=== PATIENT | male | born 1970 | race Caucasian/White ===

== ENCOUNTER → 2016-08-23 | Outpatient (CLI) | payer BC ==
[~2016-08-23] VITALS: Ht 175.3 cm; Wt 127.6 kg
[~2016-08-23] MED LIST: AMLODIPINE BESY10 MG PO; CLONIDINE PO; HYDRALAZINE HC100 MG PO; HYDROCODONE-AP1 EA11 PO; HYDROCODONE-AP1 EAC6 PO; HYDROCODONE-APA1 TA1 PO; LISINOPRIL20 MG PO; LYRICA 75 MG CA75 MG PO; LYRICA100 MG PO; LYRICA150 MG PO; METFORMIN HCL500 MG PO; METHADONE HCL 110 M1 PO; METHADONE HCL5 MG PO; NORVASC5 MG PO; PERCOCET 5-3251 EACH PO; PERCOCET PO
--- NOTE | ~2016-08-23 | HPC ---
[facility] [place] [address] PAIN MANAGEMENT CONSULTATION Name: ROSI VALDES Room #: REG VICENTE Dailey#: [id number] Admission: 08/23/16 Attend Phys: Pio Johnson DO Discharge: Date of : 66 Report #: [id number] THIS REPORT FOR: //name// CC: Roxie Johnson HISTORY OF PRESENT ILLNESS: The patient is a very pleasant 45-year-old gentleman long known to the pain clinic for chronic left lower extremity neuropathic pain status post injury or trauma to the left foot. He also had lumbar decompressive laminectomy with ongoing radicular pain. He has been stable on methadone 5 mg t.i.d., hydrocodone 7.5/325 t.i.d. He takes Lyrica 75 mg b.i.d. Last urine drug screen 06/16/2015 was positive for prescribed medications. We did get a urine drug screen today, no aberrant behavior suggestive for drug diversion, simply complying with opiate consent to treat contract, is now a little greater than a year since last UDS. The patient returns to pain clinic today noting that while medications are providing sufficient analgesia to participate in activities of daily living, pain has been getting little bit worse, radiating down the left leg. Classic lumbar radicular symptoms. Similar to symptoms for which he had an epidural injection back in January 2016, prior injection in July 2015 as well. The patient notes pain is sharp and aching, rates it as 5 on a 0-10 visual analog scale, exacerbated with walking and standing. PHYSICAL EXAMINATION: GENERAL: Shows 45-year-old gentleman, moderately obese with a BMI of 41.5 kilograms per meter squared. VITAL SIGNS: Blood pressure is quite elevated today 171/112, pulse 89, respirations 16, oxygen saturation 96%. EXTREMITIES: Rises from chair using armrest. Modestly antalgic gait favoring the left leg. Positive straight leg raise on the left, slight decreased left-sided strength. We reviewed the fact that opiate medications are being used to provide analgesia adequate to support activities of daily living, not attempting to achieve a specific pain score on the 0-10 Visual Analog Scale. The current opiate medications are providing sufficient analgesia to allow the patient to participate in activities of daily living. The patient is not exhibiting any aberrant behavior suggestive of drug diversion. The patient is not having any adverse reactions to medications. The patient is not suffering from daytime somnolence or mental acuity changes. The patient is managing opiate-induced constipation with appropriate tpkb-fmd-mesmhrh agents and dietary considerations. The patient was counseled on concern for caution with operating a motor vehicle while using opiate medications. [address] [address] PAIN MANAGEMENT CONSULTATION Name: ROSI VALDES Room #: REG Caroline Dailey#: [id number] Admission: 08/23/16 Attend Phys: Pio Johnson DO Discharge: Date of : 66 Report #: [id number] A physical exam was performed and the patient's functional status was evaluated. All patients with back pain were advised against the bed rest greater than 4 days and were advised to return to normal activities. Pain score assessment was noted and the treatment plan was reviewed with the patient. All current medications, both prescribed and OTC were reviewed and reconciled on the electronic medical record. Tobacco screening was accomplished and smoking cessation was advised when indicated. BMI was noted and diet/exercise modification was recommended for all patients following outside normal parameters. I reviewed with the patient today their responsibilities to safeguard prescription medications, reviewed their responsibility to utilize medications only as prescribed by the physician. They are to seek and receive pain medications only from 1 physician group ( [facility]). They are to use 1 pharmacy and keep the clinic informed if they change pharmacies. Their responsibilities include making followup visits in a timely fashion and to avoid abrupt discontinuation of medication usage. Their responsibilities further include bringing their medications (bottles from the pharmacy with residual pills) to the visit for possible confirmation of pill counts and the patient understands it is their responsibility to submit to random drug screens to ensure both that the medications prescribed are present, and that no other controlled substances are present. All prescriptions provided today were generated electronically. DIAGNOSTIC STUDIES: Reviewed MRI of the lumbar spine from December 2014, has severe degenerative disk changes at L4-L5 and L5-S1 with marked disk space narrowing at these levels. There is a left paramedian disk bulge at L4-L5 causing a fairly severe stenosis of 0.5 cm. ASSESSMENT: Symptomatic lumbar radiculopathy status post decompressive laminectomy, left lower extremity chronic pain, neuropathic pain component requiring complex medication management. RECOMMENDATION: We will renew current scheduled II narcotics unchanged, methadone 5 mg t.i.d., hydrocodone 7.5/325 t.i.d. Continue Lyrica 75 mg b.i.d. We will seek authorization for lumbar epidural injection under fluoroscopy, left midline L4-L5 at next visit. <ELECTRONICALLY SIGNED> By: Pio Johnson DO 08/24/16 0925 [id number] [id number] Pio Johnson DO /nt
[2016-08-23 09:54] VITALS: BP 171/112
== END | disposition home or self-care (01) ==
LOC: PAIN 07:41
DX: M54.16 Radiculopathy, lumbar region (principal); M79.662 Pain in left lower leg; G89.29 Other chronic pain; F17.200 Nicotine dependence, unspecified, uncomplicated; Z98.890 Other specified postprocedural states

== ENCOUNTER → 2016-09-03 | Outpatient (CLI) | payer BC ==
[~2016-09-03] VITALS: Ht 175.3 cm; Wt 128.9 kg
--- NOTE | ~2016-09-03 | HPC ---
[facility] [place] [address] PAIN MANAGEMENT CONSULTATION Name: ROSI VALDES Room #: REG [facility] Asim#: [id number] Admission: 09/03/16 Attend Phys: Pio Johnson DO Discharge: Date of : 66 Report #: [id number] THIS REPORT FOR: //name// CC: Roxie Johnson The patient is a pleasant 45-year-old gentleman, he has been treated for quite some time for chronic pain syndrome in the left lower extremity, requiring complex medication management, neuropathic pain component, status post multiple surgeries ____. Last seen in the pain clinic 08/23/2016, we continued the patient on his baseline medication and got a urine drug screen at that time. The patient returns to pain clinic today, the urine drug screen is positive for hydrocodone and Lyrica, but negative for methadone. He tells me that he has been taking the methadone very intermittently, he states it makes him quite tired ____. He also is concerned that Lyrica may be causing him lower extremity edema. ____ ongoing pain today, he notes it is 5/10, primarily low back, left greater than right leg. Pain is exacerbated with walking, standing, and sitting. PHYSICAL EXAMINATION: Shows a 45-year-old gentleman, BMI is ____kg/m2, blood pressure is modestly elevated 149/71, pulse 77, and respirations 20. Rises from chair using armrest. Gait is tandem, though has positive straight leg raise on the left with positive ____ symptoms. ASSESSMENT: 1. Symptomatic lumbar radiculopathy. 2. Neuropathic pain requiring complex medication management, left lower extremity chronic pain syndrome. RECOMMENDATIONS: 1. Epidural injection under fluoroscopy today, 60 mg of triamcinolone given diabetes. 2. Discussed with the patient today about therapeutic options, he is basically self discontinuing the methadone, we will simply take that off of his medication list. We also talked about lower extremity edema, which he has about +1 today, I have given him samples of Lyrica 50 mg (currently he takes 75 mg once or twice a day). Told him to start taking simply Lyrica 50 mg at bedtime for 3 weeks and then discontinue altogether. We will see him back in 3 weeks for reevaluation, may simply continue p.r.n. hydrocodone at that point. PROCEDURE: Lumbar epidural injection under fluoroscopy. PROCEDURE NOTE: After both written and informed consent to include risk of spinal cord damage, increased pain, weakness and dural puncture, the patient was taken to the fluoroscopy suite, placed in the prone position. After sterile [address] [address] PAIN MANAGEMENT CONSULTATION Name: ROSI VALDES Room #: REG VICENTE Dailey#: [id number] Admission: 09/03/16 Attend Phys: Pio Johnson DO Discharge: Date of : 66 Report #: [id number] prep and drape, a skin wheal with lidocaine was raised. A 22-gauge epidural Tuohy needle was inserted in the midline at L4-L5 with good loss to resistance. Negative aspiration for cerebrospinal fluid or blood was noted. Then 1 mL of Omnipaque under biplanar fluoroscopy showed good spread within the epidural space. This was followed with 60 mg of triamcinolone plus 1 mL of 1.5% preservative-free Xylocaine, 0.5 mL Xylocaine was then injected to flush the needle; it was removed. The patient was monitored for an appropriate period of time and discharged in good and stable condition. By: [id number] Pio Johnson DO /nt
[2016-09-03 09:40] VITALS: BP 149/71
== END ==
LOC: PAIN 06:59
DX: M54.16 Radiculopathy, lumbar region (principal); G89.4 Chronic pain syndrome

== ENCOUNTER → 2016-10-01 | Outpatient (CLI) | payer BC ==
[~2016-10-01] VITALS: Ht 175.3 cm; Wt 128.4 kg
[~2016-10-01] MED LIST changes: +LYRICA 50 MG50 MG PO
--- NOTE | ~2016-10-01 | H ---
[facility] [place] [address] HISTORY AND PHYSICAL Name: ROSI VALDES Room #: REG VICENTE Dailey#: [id number] Admission: 10/01/16 Attend Phys: Pio Johnson DO Discharge: Date of : 66 Report #: [id number] THIS REPORT FOR: //name// CC: Roxie Johnson HISTORY OF PRESENT ILLNESS: The patient is a very pleasant 45-year-old gentleman, long treated for peripheral neuropathy and lumbar radiculopathy, requiring complex medication management. Last visit 09/03/2016. We had a long discussion about therapeutic options. He noted that methadone had made him quite drowsy. He was taking it basically only at night. Urine drug screen was negative for methadone on 08/23/2016. He actually brought his tablets in. He simply had not taken them for several days. Last visit, we elected to simply continue Lyrica on somewhat of a weaning dose due to concern for lower extremity edema. He was given epidural injection under fluoroscopy at the last visit as well. The patient returns to pain clinic today, notes the epidural injection afforded some 75% relief and it is still ongoing. Notes, however, the primarily bipedal neuropathy remains problematic. He notes he feels like his feet are bruised and uses hydrocodone 7.5/325 p.r.n. with dwindling efficacy. He really cannot use it during the day at work. PHYSICAL EXAMINATION: Unchanged. GENERAL: A pleasant 45-year-old gentleman. VITAL SIGNS: Elevated BMI of 41.8 kilograms per meter squared. Blood pressure is quite elevated today at 184/122, pulse is 81 and respirations are 16. NEUROLOGIC: Alert and oriented to person, place and time. Judged to be a reasonable historian. Rises from chair using the armrest, moderately antalgic gait. Subjective paresthesia in the feet. SKIN AND INTEGUMENT: Otherwise intact. ASSESSMENT: Neuropathic pain and lumbar radiculopathy, requiring complex medication management. RECOMMENDATIONS: Long discussion with the patient today about therapeutic options. He brought in methadone. He has 60 of the 5-mg tablets. I suggested he simply start by taking 10 mg at bedtime. We will continue hydrocodone 7.5/325 up to 3 a day for breakthrough pain. I have taken the liberty of writing for a 4-week release prescription for methadone 10 mg, dispensed 30 tablets, one at bedtime and a 4-week release of his hydrocodone 7.5/325 up to t.i.d. Hopefully, resuming methadone at night, the patient will be able to take a little bit less of the hydrocodone. I would like to see him back in 2 months for reevaluation, we will do a pill count for the hydrocodone at that time. He has weaned down from higher dose of Lyrica down to 75 mg and then ultimately [address] [address] HISTORY AND PHYSICAL Name: ROSI VALDES Room #: REG [facility] Asim#: [id number] Admission: 10/01/16 Attend Phys: Pio Johnson DO Discharge: Date of : 66 Report #: [id number] to 50 mg with samples I had given him. He has noted no change in his subjective pain and perhaps some improvement of his lower extremity edema. We have elected to simply discontinue Lyrica altogether. The patient was discharged in good and stable condition after approximately a 25-minute visit was spent counseling the patient, reviewing therapeutic options and making complex medication management decisions. Follow up in 2 months for reevaluation. By: 1200 [id number] Pio Johnson DO /nt
[2016-10-01 10:44] VITALS: BP 184/122
== END | disposition home or self-care (01) ==
LOC: PAIN 10:13
DX: M54.16 Radiculopathy, lumbar region (principal); G62.9 Polyneuropathy, unspecified; F17.210 Nicotine dependence, cigarettes, uncomplicated

== ENCOUNTER → 2016-11-22 | Outpatient (CLI) | payer BC ==
[~2016-11-22] VITALS: Ht 175.3 cm; Wt 124.8 kg
--- NOTE | ~2016-11-22 | HPC ---
[facility] [place] [address] PAIN MANAGEMENT CONSULTATION Name: ROSI VALDES Room #: REG Caroline Dailey#: [id number] Admission: 11/22/16 Attend Phys: Pio Johnson DO Discharge: Date of : 66 Report #: [id number] THIS REPORT FOR: //name// CC: Roxie Johnson The patient is a pleasant 45-year-old gentleman typically treated for peripheral neuropathy secondary to symptomatic lumbar radiculopathy. He requires high risk complex medication management. He was last seen in the pain clinic on 10/01/2016. The patient was continued on baseline medications at that time. His last urine drug screen on 08/23/2016 was positive for prescribed medications at that time. Today, he returns to the pain clinic. He rates his pain as 3-4 on a 0-10 visual analog scale, primarily low back, left greater than right leg. Quite hypertensive today, blood pressure is elevated at 185/118, pulse is 92. I did take the liberty of looking back on prior office visits, he has been mildly hypertensive in the the past. The patient does have a prescription for hydralazine and clonidine. I suggest the he follow up with the general manager physician regarding this. Further exam notes BMI is 40.6 kilograms per meter squared. Rises from chair using armrest. Modestly antalgic gait. Diffuse tenderness across the low back. Lower extremity strength in generally preserved. We discussed current therapeutic options including current medication including methadone 10 mg at bedtime and hydrocodone 7.5/325 three a day for breakthrough pain. We have elected to continue that medication unchanged, I have taken the liberty of writing for 3 months of this medication. ASSESSMENT: Symptomatic neuropathic pain affecting bilateral feet, lumbar radiculopathy by history, complex high risk medication management, stable on baseline medications. The patient has been complying with all opiate, consent to treat contract tenets. We reviewed the fact that opiate medications are being used to provide analgesia adequate to support activities of daily living, not attempting to achieve a specific pain score on the 0-10 Visual Analog Scale. The current opiate medications are providing sufficient analgesia to allow the patient to participate in activities of daily living. The patient is not exhibiting any aberrant behavior suggestive of drug diversion. The patient is not having any adverse reactions to medications. The patient is not suffering from daytime somnolence or mental acuity changes. The patient is managing opiate-induced constipation with appropriate ylvf-myb-ipvnzcw agents and dietary considerations. The patient was counseled on concern for caution with operating a motor vehicle while using opiate medications. A physical exam was performed and the patient's functional status was evaluated. [address] [address] PAIN MANAGEMENT CONSULTATION Name: ROSI VALDES Room #: REG Caroline Dailey#: [id number] Admission: 11/22/16 Attend Phys: Pio Johnson DO Discharge: Date of : 66 Report #: [id number] All patients with back pain were advised against the bed rest greater than 4 days and were advised to return to normal activities. Pain score assessment was noted and the treatment plan was reviewed with the patient. All current medications, both prescribed and OTC were reviewed and reconciled on the electronic medical record. Tobacco screening was accomplished and smoking cessation was advised when indicated. BMI was noted and diet/exercise modification was recommended for all patients following outside normal parameters. I reviewed with the patient today their responsibilities to safeguard prescription medications, reviewed their responsibility to utilize medications only as prescribed by the physician. They are to seek and receive pain medications only from 1 physician group ( [facility]). They are to use 1 pharmacy and keep the clinic informed if they change pharmacies. Their responsibilities include making followup visits in a timely fashion and to avoid abrupt discontinuation of medication usage. Their responsibilities further include bringing their medications (bottles from the pharmacy with residual pills) to the visit for possible confirmation of pill counts and the patient understands it is their responsibility to submit to random drug screens to ensure both that the medications prescribed are present, and that no other controlled substances are present. All prescriptions provided today were generated electronically. <ELECTRONICALLY SIGNED> By: Pio Johnson DO 11/26/16 1427 1622 1713 Pio Johnson DO /nt
[2016-11-22 08:22] VITALS: BP 185/118
== END | disposition home or self-care (01) ==
LOC: PAIN 07:42
DX: G62.9 Polyneuropathy, unspecified (principal); M79.672 Pain in left foot; M79.671 Pain in right foot; M54.16 Radiculopathy, lumbar region; F11.20 Opioid dependence, uncomplicated; F17.200 Nicotine dependence, unspecified, uncomplicated

== ENCOUNTER → 2017-02-21 | Outpatient (CLI) | payer BC ==
[~2017-02-21] VITALS: Ht 175.3 cm; Wt 119.4 kg
[~2017-02-21] MED LIST changes: +METHADONE HCL 110 MG PO; +NORCO 7.5-3251 EACH PO
--- NOTE | ~2017-02-21 | HPC ---
[facility] [address] [place] [address] PAIN MANAGEMENT CONSULTATION Name: ROSI VALDES Room #: REG [facility] [id number] Admission: 02/21/17 Attend Phys: Pio Johnson DO Discharge: Date of : 66 Report #: [id number] THIS REPORT FOR: //name// CC: Roxie Johnson DATE OF SERVICE: 02/21/2017 The patient is a pleasant 46-year-old gentleman, long treated for neuropathic pain, lumbar radiculopathy requiring high-risk complex medication management. Last seen in pain clinic 11/22/2016. Continued on methadone 10 mg at bedtime, hydrocodone 7.5/325 t.i.d. The patient returns to pain clinic today noting medications generally to provide sufficient analgesia, participate in activities of daily living, rates his pain as 5 on a VAS, left greater than right lower extremity neuropathic pain, tingling, aching sensation, exacerbated with walking and standing. The patient continues to smoke 1 pack of cigarettes a day and was counseled regarding same. PHYSICAL EXAMINATION: A 46-year-old gentleman, BMI is elevated at 38.9 kg/m2. Blood pressure is quite elevated today, 186/111, pulse of 82, respirations of 20. The patient does take hydralazine and clonidine for blood pressure. On reviewing his chart, it appears blood pressure has been consistently elevated for some time. We suggest he follow up with his primary treating physician, Dr. Roxie Santos for consideration for changes in his antihypertensives. Otherwise, the patient rises from chair using armrest, modest antalgic gait, again paresthesia and dysesthesia in the left lower extremity and foot. We reviewed the fact that opiate medications are being used to provide analgesia adequate to support activities of daily living, not attempting to achieve a specific pain score on the 0-10 Visual Analog Scale. The current opiate medications are providing sufficient analgesia to allow the patient to participate in activities of daily living. The patient is not exhibiting any aberrant behavior suggestive of drug diversion. The patient is not having any adverse reactions to medications. The patient is not suffering from daytime somnolence or mental acuity changes. The patient is managing opiate-induced constipation with appropriate jfnm-bpv-pcmrgth agents and dietary considerations. The patient was counseled on concern for caution with operating a motor vehicle while using opiate medications. A physical exam was performed and the patient's functional status was evaluated. All patients with back pain were advised against the bed rest greater than 4 days and were advised to return to normal activities. Pain score assessment was noted and the treatment plan was reviewed with the patient. All current medications, both prescribed and OTC were [place] [address] PAIN MANAGEMENT CONSULTATION Name: ROSI VALDES Room #: REG VICENTE Dailey#: [id number] Admission: 02/21/17 Attend Phys: Pio Johnson DO Discharge: Date of : 66 Report #: [id number] electronic medical record. Tobacco screening was accomplished and smoking cessation was advised when indicated. BMI was noted and diet/exercise modification was recommended for all patients following outside normal parameters. I reviewed with the patient today their responsibilities to safeguard prescription medications, reviewed their responsibility to utilize medications only as prescribed by the physician. They are to seek and receive pain medications only from 1 physician group ([facility]). They are to use 1 pharmacy and keep the clinic informed if they change pharmacies. Their responsibilities include making followup visits in a timely fashion and to avoid abrupt discontinuation of medication usage. Their responsibilities further include bringing their medications (bottles from the pharmacy with residual pills) to the visit for possible confirmation of pill counts and the patient understands it is their responsibility to submit to random drug screens to ensure both that the medications prescribed are present, and that no other controlled substances are present. All prescriptions provided today were generated electronically. ASSESSMENT: Lumbar radiculopathy; neuropathic pain, bilateral left greater than right lower extremities requiring high-risk complex medication management. Nicotine habituation, counseled regarding same. Hypertension, poor control. RECOMMENDATIONS: 1. Follow up with Dr. Santos regarding hypertension. 2. Smoking cessation, counseled. 3. Continue methadone 10 mg at bedtime and hydrocodone 7.5/325 up to t.i.d. for breakthrough pain, taken the liberty of writing for 3 months of current medication. 4. Last urine drug screen on 08/23/2016 was positive for prescribed medication. We did review patient's opiate consent to treat contract, risks versus responsibilities today. <ELECTRONICALLY SIGNED> By: Pio Johnson DO 02/22/17 0654 1234 0229 Pio Johnson DO /nt
[2017-02-21 09:50] VITALS: BP 188/111
== END ==
LOC: PAIN 07:43
DX: M54.16 Radiculopathy, lumbar region (principal); I10 Essential (primary) hypertension

== ENCOUNTER 2017-04-05 09:11 | Inpatient (IN) | payer BC ==
[~2017-04-05] VITALS: Ht 175.3 cm; Wt 117.0 kg
[2017-04-05] VITALS (7 sets, daily range): BP systolic 161–222; BP diastolic 93–153
--- NOTE | ~2017-04-05 | 2DMMODE ---
[facility] [address] [place] [address] 2 D/M-MODE ECHOCARDIOGRAM Name: ROSI VALDES Room #: 356-P [facility] IN [facility]#: [id number] Admission: 04/05/17 Attend Phys: Nick Fishman MD Discharge: Date of : 66 Date of Service: 04/06/17 1458 Report #: [id number] THIS REPORT FOR: //name// ADDENDUM APPROVED REPORT Study performed: 04/05/2017 15:29:20 EXAM: Comprehensive 2D, Doppler, and color-flow Echocardiogram Patient Location: Bedside Room #: 356 Status: routine BSA: 2.32 HR: 84 bpm BP: 178/129 mmHg Other Information Study Quality: Adequate Indications Congestive Heart Failure Dyspnea Hypertension/HDD 2D Dimensions RVDd: 30.95 mm LVEF(%): 39.96 (>50%) IVSd: 18.29 (7-11mm) LVOT Diam: 21.51 (18-24mm) LVDd: 55.85 mm PWd: 17.80 (7-11mm) Ascending Ao: 32.31 (22-36mm) LVDs: 44.84 (25-40mm) Aortic Root: 33.39 mm Dorman's LVEF: 39.96 % Volumes Left Atrial Volume (Systole) Single Plane 4CH: 42.27 mL Single Plane 2CH: 122.36 mL LA ESV Index: 35.00 mL/m2 Aortic Valve AoV Peak Marcus.: 1.69 m/s AO Peak Gr.: 11.48 mmHg LVOT Max P.09 mmHg LVOT Max V: 1.13 m/s ROSALINDA Vmax: 2.42 cm2 Mitral Valve E/A Ratio: 2.8 [facility] [place] [address] [place] [address] 2 D/M-MODE ECHOCARDIOGRAM Name: ROSI VALDES Room #: 356-P [facility] IN [facility].#: [id number] Admission: 04/05/17 Attend Phys: Nick Fishman MD Discharge: Date of : 66 Date of Service: 04/06/17 1458 Report #: [id number] MV Decel. Time: 174.46 ms MV E Max Marcus.: 1.17 m/s MV A Marcus.: 0.42 m/s MV PHT: 50.59 ms IVRT: 131.49 ms Pulmonary Valve PV Peak Marcus.: 0.84 m/s PV Peak Gr.: 2.84 mmHg Pulmonary Vein P Vein S: 0.42 m/s P Vein A: 0.23 m/s P Vein D: 0.79 m/s P Vein A Dur.: 115.3 msec P Vein S/D Ratio: 0.53 Left Ventricle The left ventricle is normal size. Moderate concentric left ventricular hypertrophy. Left ventricular ejection fraction is mild to moderately decreased. LVEF is 35-40%. The diastolic function is abnormal. Right Ventricle The right ventricle is normal size. The right ventricular systolic function is normal. Atria Left atrium is dilated. The right atrium size is normal. Aortic Valve The aortic valve is normal in structure. Aortic valve is calcified. Trace to mild aortic regurgitation. There is no aortic valvular stenosis. Mitral Valve The mitral valve is normal in structure. Trace mitral regurgitation. No evidence of mitral valve stenosis. Tricuspid Valve The tricuspid valve is normal in structure. There is no tricuspid valve regurgitation noted. Pulmonic Valve The pulmonary valve is normal in structure. There is no pulmonic valvular regurgitation. Great Vessels The aortic root is normal in size. IVC is not well [address] [address] 2 D/M-MODE ECHOCARDIOGRAM Name: ROSI VALDES Room #: 356-P [facility] IN ..#: [id number] Admission: 04/05/17 Attend Phys: Nick Fishman MD Discharge: Date of : 66 Date of Service: 04/06/17 1458 Report #: [id number] visualized. Pericardium There is no pericardial effusion. <Conclusion> The left ventricle is normal size. Left ventricular ejection fraction is mild to moderately decreased. Moderate concentric left ventricular hypertrophy. LVEF is 35-40%. Left atrium is dilated. The aortic valve is normal in structure. Aortic valve is calcified. Trace to mild aortic regurgitation. There is no aortic valvular stenosis. The mitral valve is normal in structure. Trace mitral regurgitation. The tricuspid valve is normal in structure. The pulmonary valve is normal in structure. There is no pericardial effusion. <ELECTRONICALLY SIGNED> By: Soham Burch MD 04/06/17 1458 1458 1458 Soham Burch MD /INF
--- NOTE | ~2017-04-05 | HC ---
[facility] [place] [address] [address] CONSULTATION Name: ROSI VALDES Room #: 356-P [facility] IN ..#: [id number] Admission: 04/05/17 Attend Phys: Nick Fishman MD Discharge: Date of : 66 Report #: [id number] THIS REPORT FOR: //name// CC: Nick Santos REASON FOR PRESENTATION: Shortness of breath. REASON FOR CONSULTATION: Elevated kidney numbers. HISTORY OF PRESENT ILLNESS: This is a 46-year-old with long-standing diabetes mellitus and hypertension. He started to have some shortness of breath a couple of days ago and reported to his primary care physician where they did some laboratory values on the patient and those showed very significant worsening of his kidney function. He was told by his primary care physician to visit with the Emergency Room where he was found to have an acute kidney injury with significantly elevated renal dysfunction. The patient had been seeing another primary care physician and he recently switched to his primary care physician here in town, Dr. Santos. He is not aware of any previous cardiac problems. He told me that he had long-standing diabetes mellitus and hypertension. He also mentioned for me that a few years ago he had an adrenal tumor and this was resected. He relates that to low potassium. He denies nonsteroidal anti-inflammatory medications. Medications on presentation included clonidine, hydralazine, methadone. He had been followed by pain clinic for back and lower extremities issues and was prescribed methadone accordingly. The patient is not really aware of any previous renal issues as he stated. He told me that he does not have any diabetic related or blood pressure related issues. On presentation, as I have stated, he was found to have a significantly elevated creatinine with a significantly elevated blood pressure and I was asked to manage accordingly. He is not aware of any previous personal or family history of connective tissue disease, glomerulonephritis, family history of end-stage renal disease or renal transplant patients. PAST MEDICAL HISTORY: 1. Hypertension. 2. Remote history of angiomyolipoma. 3. Chronic pain issues. 4. Erectile dysfunction. 5. Hyperlipidemia. 6. Sleep apnea, utilizing CPAP. PAST SURGICAL HISTORY: 1. Back surgery. 2. Adrenal gland resection. ALLERGIES: None. [facility] [address] [place] [address] CONSULTATION Name: ROSI VALDES Room #: 356-P [facility] IN [facility]#: [id number] Admission: 04/05/17 Attend Phys: Nick Fishman MD Discharge: Date of : 66 Report #: [id number] MEDICATIONS: 1. Amlodipine. 2. Clonidine. 3. Hydrocodone. 4. Methadone. 5. Viagra. FAMILY HISTORY: Parents have hypertension. SOCIAL HISTORY: Heavy smoker. Occasional drinker. REVIEW OF SYSTEMS: GENERAL: No fever or chills. CARDIOVASCULAR: Significant for shortness of breath, but no chest pain. PULMONARY: Significant for shortness of breath. GASTROINTESTINAL: No nausea or vomiting. GENITOURINARY: No frequency, no urgency. PHYSICAL EXAMINATION: GENERAL: He is alert, oriented, in no apparent distress. VITAL SIGNS: Blood pressure on presentation was elevated at 200/100 and it is down to 160/70. HEAD AND NECK: No jugular venous distention, no bruit, no thyromegaly. CHEST: Clear to auscultation bilaterally with decreased air entry. CARDIOVASCULAR: Regular, with no rub detected. ABDOMEN: Soft, nontender. LOWER EXTREMITIES: +3 edema. LABORATORY DATA: Reviewed. White blood cell count is elevated at 15.0. No eosinophilia. Creatinine from today 7.2. He is anemic with a hemoglobin of 8.7. UA is not done yet. Imaging including his ultrasound reviewed. Lung scan negative. ASSESSMENT, IMPRESSION AND PLAN: 1. Chronic kidney disease. 2. Hypertension. 3. Diabetes mellitus. 4. Remote history of adrenalectomy. 5. Cardiomyopathy, probably related to hypertension with an ejection fraction of 40%. This seems to be due to uncontrolled hypertension. I will initiate the appropriate workup, please review my lab orders. 6. Ultrasound of the kidneys. 7. Anemia workup. 8. Control blood pressure. [address] [address] CONSULTATION Name: ROSI VALDES Diana Room #: 356-P [facility] IN ..#: [id number] Admission: 04/05/17 Attend Phys: Nick Fishman MD Discharge: Date of : 66 Report #: [id number] 9. Diuresis. 10. Would like to obtain his [facility] records regarding his adrenalectomy. 11. Low salt diet. 12. Fluid restrictions. 13. Check hemoglobin A1c. 14. Significant hypoalbuminemia and we will have to evaluate urine protein to creatinine ratio. 15. Need further optimization of his cardiac conditions. <ELECTRONICALLY SIGNED> By: Mak Snow MD 04/08/17 0632 0842 1813 Mak Snow MD /nt
--- NOTE | ~2017-04-05 | EKG ---
[place] [address] [place] [address] ELECTROCARDIOGRAM REPORT Name: ROSI VALDES [id number] Admission: 04/05/17 Attend Phys: Discharge: Date of : 66 Report #: [id number] THIS REPORT FOR: //name// [facility] ED Test Date: 2017-04-05 Test Time: 09:33:01 Pat Name: ROSI LUCIO Department: Room: Gender: Sterile Proc Tech: ANTONINA : 1970 Requested By: Yulisa Kong Order Number: [id number] MD: Eben Cooley Measurements Intervals [place] Rate: 92 P: 64 MN: 149 QRS: 9 QRSD: 106 T: 127 QT: 363 QTc: 450 Interpretive Statements Sinus rhythm Probable left atrial enlargement RSR' in V1 or V2, probably normal variant Abnormal T, consider ischemia, lateral leads Baseline wander in lead(s) V4 No previous ECG available for comparison Electronically Signed On 04-05-2017 11:20:00 AUTOMATIC PROFILE SHAPER OPERATOR by Eben Cooley [email or web address] <ELECTRONICALLY SIGNED> By: Eben Cooley MD 04/05/17 1120 2 2 Eben Cooley MD /EUNICE
--- NOTE | ~2017-04-05 | HC ---
[facility] [place] [address] CONSULTATION Name: ROSI VALDES Room #: 356-P [facility] IN ..#: [id number] Admission: 04/05/17 Attend Phys: Nick iFshman MD Discharge: Date of : 66 Report #: [id number] THIS REPORT FOR: //name// CC: Nick Santos MD PRIMARY CARE PHYSICIAN: Roxie Santos MD REFERRAL PHYSICIAN: Nick Fishman MD REASON FOR REFERRAL: Dyspnea. HISTORY OF PRESENT ILLNESS: The patient is a 46-year-old male, who was admitted with increasing dyspnea along with hypertensive urgency. The patient has a history of hypertension, chronic kidney disease along with diabetes. He was also diagnosed with sleep apnea, on CPAP. The patient notes that his blood pressure has been elevated recently. Today, when he was seen by Dr. Santos, his blood pressure measured 212/146 mmHg. He had complained of dyspnea. He was referred to the emergency room where he was subsequently admitted. The patient states that he was in his usual state of health until about 3 days ago when he started to develop dyspnea. Otherwise, denies any recent chest pain, febrile illness, productive cough, nausea, vomiting, or diarrhea. He still smokes about a pack a day. He states that he is compliant with the use of CPAP. 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 PAST SURGICAL HISTORY: Include prior back surgery, status post tumor resection. ALLERGIES: None to medications. HOME MEDICATIONS: Include amlodipine, clonidine 0.3 mg tablet twice a day, hydralazine 100 mg p.o. twice a day, hydrocodone 7.5 mg t.i.d., methadone 10 mg once a day, Viagra 100 mg p.o. p.r.n., and Ambien 5 mg once a day. FAMILY HISTORY: Noncontributory. Both parents are alive. SOCIAL HISTORY: As mentioned above. He smokes about a pack a day. Alcohol, he [facility] [address] [place] [address] CONSULTATION Name: ROSI VALDES Room #: 356-P [facility] IN [facility].#: [id number] Admission: 04/05/17 Attend Phys: Nick Fishman MD Discharge: Date of : 66 Report #: [id number] drinks socially. REVIEW OF SYSTEMS: As mentioned above, otherwise 10-point system review negative. PHYSICAL EXAMINATION: GENERAL: He is awake, alert, appears mildly distressed. VITAL SIGNS: Temperature is 97 degrees Fahrenheit, pulse is 82, respiratory rate is 20, blood pressure is 179/112 mmHg, and saturation 98%. HEENT: Normocephalic, atraumatic. NECK: Supple without any lymphadenopathy or thyromegaly. CHEST: Breath sounds are clear without any rales or wheezes. CARDIOVASCULAR: PMI is nondisplaced. Normal S1, S2. There is no murmur or gallop. There is no JVD. There is no carotid bruit. Pulses are 2+/4+ bilaterally. ABDOMEN: Soft, nontender. No organomegaly or masses felt. GENITOURINARY: Deferred. RECTAL: Deferred. EXTREMITIES: There is no cyanosis or clubbing. Trace bilateral lower extremity edema is noted. LABORATORY DATA: Portable chest x-ray revealed borderline cardiomegaly, increased pulmonary vascular markings, subtle suggestion of Cristal B lines are noted in both peripheral lung bedoya area. Sodium 135, potassium 3.8, chloride 104, CO2 is 24, BUN is 68, and creatinine 6.7. WBC 13,200; hemoglobin is 9.8, and platelets are normal. Troponin 0.06. Arterial blood gas revealed pH 7.39, pCO2 of 33, and pO2 of 61 on room air. IMPRESSION: 1. Dyspnea in this 46-year-old male with hypertensive urgency. The patient smokes. He has a history of sleep apnea. He is moderately obese. Dyspnea is likely related to hypertensive urgency. There is suggestion of possible acute systolic heart failure. Pulmonary embolus is felt to be less likely given a low probability V/Q scan. With his history of tobacco use, cannot rule out chronic obstructive pulmonary disease, though he does not appear to have chronic obstructive pulmonary disease exacerbation. 2. Obstructive sleep apnea, on home CPAP. 3. Tobacco abuse. 4. Hypertensive urgency. The patient was felt to have renal vascular disease. We would recommend renal consult. 5. Chronic kidney disease. Creatinine today is 6.7. 6. Mildly elevated troponin, probably related to myocardial stress demand. 7. Hypertension. 8. Diabetes mellitus type 2. 9. Chronic pain, on chronic narcotics. [facility] [address] [place] [address] CONSULTATION Name: ROSI VALDES Room #: 356-P [facility] M.R.#: [id number] Admission: 04/05/17 Attend Phys: Nick Fishman MD Discharge: Date of : 66 Report #: [id number] RECOMMENDATION: Agree with current plans with blood pressure control. We would recommend echocardiogram. Consider gentle diuresis. We will try to keep blood pressure around 130/80 if possible. We would recommend a renal consultation if not already. In terms of the patient's dyspnea, this should improve once his hypertension is better controlled. Once stable as an outpatient, we would recommend a baseline pulmonary function test. Strongly recommended smoke cessation. He should continue using CPAP for his sleep apnea. This will help with blood pressure control. Thank you for this consultation. <ELECTRONICALLY SIGNED> By: Harrison Fleming MD 04/07/17 1155 1601 26 Harrison Fleming MD /nt
[2017-04-05] MEDS ORDERED: HYDROCODONE-ACE15 ML PO (09:27)
[2017-04-05 09:47] LABS: ABSOLUTE NEUTROPHILS 9.8 thou/uL (1.4-8.2); BASOPHILS 0.5 % (0.0-2.0); EOSINOPHILS 1.7 % (0.0-3.0); HEMATOCRIT 29.4 % (42.0-52.0); HEMOGLOBIN 9.8 gm/dL (14.0-18.0); LYMPHOCYTES 17.3 % (24.0-44.0); MCH 28.8 pg (26.0-34.0); MCHC 33.4 g/dL (28.0-37.0); MCV 86.4 fL (80.0-100.0); PLATELET COUNT 216 thou/uL (150-400); POLYS 74.5 % (36.0-66.0); RDW 14.9 % (10.5-14.5); WBC 13.2 thou/uL (4.0-11.0)
[2017-04-05 09:53] LABS: ABG SAMPLE TYPE ARTERIAL; BE(vivo) -4.2 mmol/L (-2 to +3); LACTATE 0.92 mmol/L (0.5-2.0); O2(CT) 13.5 mL/dL (15.0-23.0); O2Hb 91.8 % (92.0-98.0); PCO2 33.4 mmHg (35.0-45.0); PO2 61.9 mmHg (80.0-100.0); pH 7.395 (7.360-7.450); sO2 91.9 % (92.0-98.0)
[2017-04-05 09:54] LABS: FIO2 21 %; STICK SITE R.BRACHIAL
[2017-04-05 09:57] LABS: CALCIUM 8.7 mg/dL (8.5-10.1); CREATININE 6.7 mg/dL (0.7-1.3); POTASSIUM 3.8 mmol/L (3.5-5.1)
[2017-04-05 09:58] LABS: MANUAL DIFF NO
[2017-04-05 10:06] LABS: TROPONIN-I 0.06 ng/mL (<0.06)
[2017-04-06] VITALS (8 sets, daily range): BP systolic 104–175; BP diastolic 57–116
[2017-04-06 05:58] LABS: HEMATOCRIT 26.6 % (42.0-52.0); HEMOGLOBIN 8.7 gm/dL (14.0-18.0); MCH 28.6 pg (26.0-34.0); MCHC 32.7 g/dL (28.0-37.0); MCV 87.6 fL (80.0-100.0); RBC 3.04 mil/uL (4.50-6.00); RDW 15.1 % (10.5-14.5)
[2017-04-06 06:12] LABS: ALBUMIN 2.9 g/dL (3.4-5.0); CALCIUM 8.3 mg/dL (8.5-10.1); CREATININE 7.2 mg/dL (0.7-1.3); PHOSPHORUS 5.5 mg/dL (2.5-4.9); POTASSIUM 4.1 mmol/L (3.5-5.1)
[2017-04-06 11:44] LABS: URINE BILIRUBIN NEGATIVE (Negative); URINE BLOOD TRACE (Negative); URINE COLOR YELLOW; URINE GLUCOSE-RANDOM* NEGATIVE (Negative); URINE KETONES NEGATIVE (Negative); URINE NITRITE NEGATIVE (Negative); URINE PROTEIN (DIPSTICK) 2+ (Negative); URINE UROBILINOGEN 0.2 E.U./dl (0.2-1.0)
[2017-04-06 11:54] LABS: AMP/METHAMP Negative (Negative); BARBITURATES Negative (Negative); BENZODIAZEPINES Negative (Negative); COCAINE Negative (Negative); METHADONE POSITIVE (Negative); OPIATES POSITIVE (Negative); PCP Negative (Negative); URINE CREATININE-RANDOM* 83.5 mg/dL; URINE PROTEIN-RANDOM* 252.8 mg/dL (<11.9)
[2017-04-06 12:01] LABS: FINE GRANULAR CASTS 4-10 Moderate /LPF (None Seen); SQUAMOUS 0-3 Few /LPF (0-3)
[2017-04-06 12:03] LABS: AMORPHOUS URATES Few /LPF (None Seen); BACTERIA 1-9 Few /HPF (None Seen); URINE RBC 0-2 Rare /HPF (0-2); URINE WBC 0-5 Rare /HPF (0-5)
[2017-04-07 03:40] VITALS: BP 154/104
[2017-04-07 03:52] LABS: HEMATOCRIT 24.3 % (42.0-52.0); HEMOGLOBIN 8.1 gm/dL (14.0-18.0); MCH 29.3 pg (26.0-34.0); MCHC 33.5 g/dL (28.0-37.0); MCV 87.4 fL (80.0-100.0); RBC 2.78 mil/uL (4.50-6.00); RDW 15.2 % (10.5-14.5); WBC 10.7 thou/uL (4.0-11.0)
[2017-04-07 04:03] LABS: ALBUMIN 2.8 g/dL (3.4-5.0); CREATININE 7.8 mg/dL (0.7-1.3); PHOSPHORUS 7.4 mg/dL (2.5-4.9); POTASSIUM 4.1 mmol/L (3.5-5.1)
[2017-04-07 07:42] VITALS: BP 136/97
[2017-04-07 11:16] VITALS: BP 126/91
[2017-04-07 16:40] VITALS: BP 119/88
[2017-04-07 18:59] VITALS: BP 121/85
[2017-04-07 23:32] VITALS: BP 133/95
[2017-04-08 05:04] VITALS: BP 135/97
[2017-04-08 05:37] LABS: CALCIUM 8.1 mg/dL (8.5-10.1); CREATININE 8.1 mg/dL (0.7-1.3); PHOSPHORUS 7.2 mg/dL (2.5-4.9)
[2017-04-08 05:42] LABS: % SATURATION 19 % (20-39); IRON 48 ug/dL (65-175); TIBC 247 ug/dL (250-450); UIBC 199 ug/dL
[2017-04-08 07:12] VITALS: BP 149/103
[2017-04-08 11:59] VITALS: BP 122/87
[2017-04-08 13:11] LABS: IgG 776 mg/dL (700-1600); IgM 106 mg/dL (20-172)
[2017-04-08 15:35] VITALS: BP 119/84
[2017-04-08 16:09] LABS: KAPPA FREE LIGHT CHAINS 111.8 mg/L (3.3-19.4); KAPPA/LAMBDA RATIO 1.98 (0.26-1.65); LAMBDA FREE LIGHT CHAINS 56.5 mg/L (5.7-26.3)
[2017-04-08 19:50] VITALS: BP 119/81
[2017-04-08 20:08] LABS: IgA 78 mg/dL (90-386)
[2017-04-09 04:45] VITALS: BP 144/92
[2017-04-09 06:58] LABS: ALBUMIN 3.1 g/dL (3.4-5.0); CALCIUM 8.1 mg/dL (8.5-10.1); CREATININE 8.3 mg/dL (0.7-1.3); POTASSIUM 3.7 mmol/L (3.5-5.1)
[2017-04-09 07:30] VITALS: BP 140/93
[2017-04-09 11:07] VITALS: BP 140/93
[2017-04-09 11:17] VITALS: BP 117/83
[2017-04-09 21:22] VITALS: BP 121/75
[2017-04-10 03:28] LABS: ALBUMIN 2.9 g/dL (3.4-5.0); CALCIUM 8.1 mg/dL (8.5-10.1); PHOSPHORUS 6.3 mg/dL (2.5-4.9)
[2017-04-10 03:30] VITALS: BP 142/83
[2017-04-10 03:31] LABS: CREATININE 6.7 mg/dL (0.7-1.3)
[2017-04-10 07:24] VITALS: BP 137/89
[2017-04-10 12:08] LABS: A/G RATIO 1.3 (0.7-1.7); ALBUMIN 3.2 g/dL (2.9-4.4); ALPHA 1 0.2 g/dL (0.0-0.4); ALPHA 2 0.6 g/dL (0.4-1.0); BETA 0.8 g/dL (0.7-1.3); GAMMA 0.8 g/dL (0.4-1.8); M-SPIKE Not Observed g/dL (Not Observed)
[2017-04-10 16:01] VITALS: BP 128/84
[2017-04-10 16:08] LABS: c-ANCA <1:20 titer (Neg:<1:20); p-ANCA <1:20 titer (Neg:<1:20)
[2017-04-10 20:00] VITALS: BP 116/78
[2017-04-10 23:32] VITALS: BP 131/87
[2017-04-11 04:00] VITALS: BP 140/89
[2017-04-11 05:29] LABS: CALCIUM 8.6 mg/dL (8.5-10.1); CREATININE 5.8 mg/dL (0.7-1.3); PHOSPHORUS 5.3 mg/dL (2.5-4.9)
[2017-04-11 09:08] VITALS: BP 131/94
[2017-04-11 10:04] VITALS: BP 131/94
[2017-04-11] MEDS ORDERED: CALCIUM ACETAT667 MG PO (11:53)
[2017-04-11] MEDS ORDERED: LASIX 40 MG TAB40 M1 PO (11:53)
[2017-04-11] MEDS ORDERED: NEPHROCAPS SOFT1 CAP PO (11:55)
[2017-04-11] MEDS ORDERED: ACCUNEB SO1.25 MG/1 INH (12:01)
[2017-04-11] MEDS ORDERED: SPIRIVA INH (12:01)
[2017-04-11 12:25] VITALS: BP 152/95
[2017-04-11] MEDS ORDERED: VENTOLIN HFA 1818 GM INH (13:02)
== END 2017-04-11 15:06 | disposition home or self-care (01) | DRG 871 ==
LOC: ER 09:11 → 3W 11:36 → EROBS 11:36 → 3W 13:00 → ENTRNSPT 04-11 14:55 → EDTRNSPTSTS 04-11 14:56 → 3W 04-11 15:06
PROVIDERS: Emergency Medicine; Hospitalist; Internal Medicine Nephrology
DX: A41.9 Sepsis, unspecified organism (principal); J96.01 Acute respiratory failure with hypoxia; I50.21 Acute systolic (congestive) heart failure; N18.6 End stage renal disease; N17.9 Acute kidney failure, unspecified; J44.1 Chronic obstructive pulmonary disease with (acute) exacerbation; F11.20 Opioid dependence, uncomplicated; I42.9 Cardiomyopathy, unspecified; I13.2 Hypertensive heart and chronic kidney disease with heart failure and with stage 5 chronic kidney disease, or end stage renal disease; F17.210 Nicotine dependence, cigarettes, uncomplicated; I16.0 Hypertensive urgency; E87.70 Fluid overload, unspecified; G89.29 Other chronic pain; E78.5 Hyperlipidemia, unspecified; E11.40 Type 2 diabetes mellitus with diabetic neuropathy, unspecified; G47.00 Insomnia, unspecified; G47.33 Obstructive sleep apnea (adult) (pediatric); E83.39 Other disorders of phosphorus metabolism; E11.22 Type 2 diabetes mellitus with diabetic chronic kidney disease; D64.9 Anemia, unspecified; I99.8 Other disorder of circulatory system; Z84.1 Family history of disorders of kidney and ureter; Z82.49 Family history of ischemic heart disease and other diseases of the circulatory system; Z79.899 Other long term (current) drug therapy; Z99.81 Dependence on supplemental oxygen; Z99.2 Dependence on renal dialysis
CPT/HCPCS: 10080; 32100

== ENCOUNTER → 2017-05-02 | Outpatient (CLI) | payer BC ==
[~2017-05-02] VITALS: Ht 175.3 cm; Wt 111.9 kg
[~2017-05-02] MED LIST changes: +ACCUNEB SO1.25 MG/1 INH; +AUGMENTIN 875-1 EACH PO; +CALCIUM ACETAT667 M2 PO; +CALCIUM ACETAT667 MG PO; +HYDROCODON-ACE1 EAC8 PO; +HYDROCODONE-ACE15 ML PO; +LASIX 40 MG TAB40 M1 PO; +LASIX 40 MG TAB40 M2 PO; +MOMETASONE FURO30 ML OTIC; +NEPHROCAPS SOFT1 CAP PO; +NORCO 10-325 T1 EAC1 PO; +SPIRIVA INH; +VENTOLIN HFA 1818 GM INH
--- NOTE | ~2017-05-02 | HPC ---
[facility] [place] [address] PAIN MANAGEMENT CONSULTATION Name: ROSI VALDES Room #: [facility]#: [id number] Admission: 05/02/17 Attend Phys: Pio Johnson DO Discharge: Date of : 66 Report #: [id number] THIS REPORT FOR: //name// CC: Roxie Johnson DATE OF SERVICE: 05/02/2017 The patient is a 46-year-old gentleman being treated for lumbar radiculopathy and neuropathic pain, requiring high-risk complex medication management. Last seen in Pain Clinic on 02/21/2017, continued on baseline medication including methadone 10 mg at bedtime, hydrocodone 7.5/325 three times a day. Counseled regarding smoking cessation. Last random drug screen 08/23/2016 was positive for prescribed medications. The patient presents to Pain Clinic today. We had a prolonged visit from 8582-6611. Greater than 50% of this 25-minute visit was spent counseling the patient. He has had significant interval health changes when I saw him last. He is admitted to the hospital 04/05/2017 through 04/11/2017, ostensibly with congestive failure and COPD and has found to have acute renal failure and currently is getting dialyzed (hemodialysis) 3 days a week. Was told that as his renal function was an acute issue, they are hopeful that with time his kidneys function will gradually return to normal. I reviewed the patient's current medication. Again, methadone and hydrocodone should not have any significant renal toxicity and should not be impacted by renal function. The patient fortunately has quit smoking. He notes his pain is a 5 on a VAS. Pain primarily low back, left leg and foot. Rates it a 5 on a VAS, chronic tingling sensation, exacerbated with walking and standing. PHYSICAL EXAMINATION: Shows a 46-year-old gentleman. He has lost a little weight. BMI is down to 36.4 kg/m2 (prior he had run around 40 kg/m2). Blood pressure is 143/96, pulse 63, respirations 18. He had been "hit or a miss" on his blood pressure medicine prior, which may have been a culprit in the acute renal insufficiency, he is now much more adamant about taking his Lasix, hydralazine and clonidine on a daily basis. He is alert and oriented to person, place and time, judged to be a reasonable historian. Rises from chair using armrest, modestly antalgic gait favoring the left leg, some hyperpathia and allodynia around the left lower extremity. We reviewed the fact that opiate medications are being used to provide analgesia [address] [address] PAIN MANAGEMENT CONSULTATION Name: ROSI VALDES Room #: [facility] Asim#: [id number] Admission: 05/02/17 Attend Phys: Pio Johnson DO Discharge: Date of : 66 Report #: [id number] adequate to support activities of daily living, not attempting to achieve a specific pain score on the 0-10 Visual Analog Scale. The current opiate medications are providing sufficient analgesia to allow the patient to participate in activities of daily living. The patient is not exhibiting any aberrant behavior suggestive of drug diversion. The patient is not having any adverse reactions to medications. The patient is not suffering from daytime somnolence or mental acuity changes. The patient is managing opiate-induced constipation with appropriate [id number] agents and dietary considerations. The patient was counseled on concern for caution with operating a motor vehicle while using opiate medications. A physical exam was performed and the patient's functional status was evaluated. All patients with back pain were advised against the bed rest greater than 4 days and were advised to return to normal activities. Pain score assessment was noted and the treatment plan was reviewed with the patient. All current medications, both prescribed and OTC were reviewed and reconciled on the electronic medical record. Tobacco screening was accomplished and smoking cessation was advised when indicated. BMI was noted and diet/exercise modification was recommended for all patients following outside normal parameters. I reviewed with the patient today their responsibilities to safeguard prescription medications, reviewed their responsibility to utilize medications only as prescribed by the physician. They are to seek and receive pain medications only from 1 physician group ( [facility]). They are to use 1 pharmacy and keep the clinic informed if they change pharmacies. Their responsibilities include making followup visits in a timely fashion and to avoid abrupt discontinuation of medication usage. Their responsibilities further include bringing their medications (bottles from the pharmacy with residual pills) to the visit for possible confirmation of pill counts and the patient understands it is their responsibility to submit to random drug screens to ensure both that the medications prescribed are present, and that no other controlled substances are present. All prescriptions provided today were generated electronically. ASSESSMENT: Symptomatic lumbar radiculopathy and neuropathic pain, requiring high-risk complex medication management in a gentleman with recent acute renal failure, currently on hemodialysis; chronic obstructive pulmonary disease and congestive heart failure exacerbation, relatively controlled at present. Fortunately, he has quit smoking. RECOMMENDATION: After a long discussion with the patient, he would like to continue baseline medication including methadone 10 mg at bedtime, hydrocodone 7.5/325 three times a day. I did get a buccal drug swab today, random drug screen, simply complying with our opiate consent to treat contract. No aberrant behavior suggestive for drug [address] [address] PAIN MANAGEMENT CONSULTATION Name: ROSI VALDES Room #: [facility] Asim#: [id number] Admission: 05/02/17 Attend Phys: Pio Johnson DO Discharge: Date of : 66 Report #: [id number] diversion. The patient discharged in good and stable condition. Follow up in 2 months or earlier if needed. <ELECTRONICALLY SIGNED> By: Pio Johnson DO 05/03/17 0810 1424 193 Pio Johnson DO /nt
[2017-05-02 13:14] VITALS: BP 143/96
== END ==
LOC: PAIN 07:12
DX: M54.16 Radiculopathy, lumbar region (principal); N17.9 Acute kidney failure, unspecified; J44.9 Chronic obstructive pulmonary disease, unspecified; I50.9 Heart failure, unspecified; Z99.2 Dependence on renal dialysis; Z79.899 Other long term (current) drug therapy; Z87.891 Personal history of nicotine dependence

== ENCOUNTER → 2017-06-27 | Outpatient (CLI) | payer BC ==
[~2017-06-27] VITALS: Ht 175.3 cm; Wt 112.2 kg
--- NOTE | ~2017-06-27 | HPC ---
[facility] [place] [address] PAIN MANAGEMENT CONSULTATION Name: LUCIOROSI Diana Room #: REG Caroline Dailey#: [id number] Admission: 06/27/17 Attend Phys: Pio Johnson DO Discharge: Date of : 66 Report #: [id number] THIS REPORT FOR: //name// CC: Roxie Johnson The patient is a very pleasant 46-year-old gentleman long treated for lumbar radiculopathy, neuropathic pain requiring complex medication management. Last seen in the pain clinic 05/02/2017. The patient returns to pain clinic today noting medications are generally providing sufficient analgesia to participate in activities of daily living. He unfortunately last March became quite ill. He had a bout of congestive failure, COPD and was found to be in acute renal failure. He currently is dialyzing 3 times a week. He is scheduled to get a left arm AV shunt placed in the next week or two. He notes with dialysis, having to lie for 3 hours in 1 position, pain does get a little bit worse. He has been continued on methadone 10 mg at bedtime, hydrocodone 7.5/325 typically t.i.d., though he tells me he is actually taking one half tablet b.i.d. Last buccal drug swab 05/02/2017 was positive for prescribed medications. We reviewed the fact that opiate medications are being used to provide analgesia adequate to support activities of daily living, not attempting to achieve a specific pain score on the 0-10 Visual Analog Scale. The current opiate medications are providing sufficient analgesia to allow the patient to participate in activities of daily living. The patient is not exhibiting any aberrant behavior suggestive of drug diversion. The patient is not having any adverse reactions to medications. The patient is not suffering from daytime somnolence or mental acuity changes. The patient is managing opiate-induced constipation with appropriate varr-hzn-zfoapqq agents and dietary considerations. The patient was counseled on concern for caution with operating a motor vehicle while using opiate medications. A physical exam was performed and the patient's functional status was evaluated. All patients with back pain were advised against the bed rest greater than 4 days and were advised to return to normal activities. Pain score assessment was noted and the treatment plan was reviewed with the patient. All current medications, both prescribed and OTC were reviewed and reconciled on the electronic medical record. Tobacco screening was accomplished and smoking cessation was advised when indicated. BMI was noted and diet/exercise modification was recommended for all patients following outside normal parameters. [address] [address] PAIN MANAGEMENT CONSULTATION Name: ROSI VALDES Room #: REG VICENTE Dailey#: [id number] Admission: 06/27/17 Attend Phys: Pio Johnson DO Discharge: Date of : 66 Report #: [id number] I reviewed with the patient today their responsibilities to safeguard prescription medications, reviewed their responsibility to utilize medications only as prescribed by the physician. They are to seek and receive pain medications only from 1 physician group ( [facility]). They are to use 1 pharmacy and keep the clinic informed if they change pharmacies. Their responsibilities include making followup visits in a timely fashion and to avoid abrupt discontinuation of medication usage. Their responsibilities further include bringing their medications (bottles from the pharmacy with residual pills) to the visit for possible confirmation of pill counts and the patient understands it is their responsibility to submit to random drug screens to ensure both that the medications prescribed are present, and that no other controlled substances are present. All prescriptions provided today were generated electronically. PHYSICAL EXAMINATION: Shows a pleasant 46-year-old gentleman, BMI is elevated at 36.5 kg/m2. Blood pressure is significantly elevated today 161/111, pulse 77, respirations are 16. Alert and oriented to person, place and time, judged to be a reasonable historian. Subjective pain score is 7 on a VAS. He is hypertensive and is taking his medications on a more regular basis now. We reviewed his opiate consent to treat contract signed 10/20/2015. The patient is a former smoker. Rises from the chair using armrest. Diffuse tenderness across the low back. Gait is tandem. Lower extremity strength is preserved. Modestly positive straight leg raise, left side. Subjective paresthesia, bilateral feet. ASSESSMENT: Symptomatic lumbar radiculopathy, neuropathic pain requiring complex medication management, comorbidity includes acute renal failure. RECOMMENDATIONS: Continue current medication, methadone 10 mg at bedtime. We will change hydrocodone to a 10/325 product, limit 75 tablets for 30 days, he can take twice a day 3 tablets a day when he dialyzes. Discharged in good and stable condition. Follow up in 2 months for reevaluation. <ELECTRONICALLY SIGNED> By: Pio Johnson DO 06/28/17 0727 1440 1858 Pio Johnson DO /nt
[2017-06-27 12:34] VITALS: BP 161/111
== END ==
LOC: PAIN 07:29
DX: M54.16 Radiculopathy, lumbar region (principal); M62.9 Disorder of muscle, unspecified; N17.9 Acute kidney failure, unspecified; Z79.899 Other long term (current) drug therapy

== ENCOUNTER → 2017-10-31 | Outpatient (CLI) | payer BC ==
[~2017-10-31] VITALS: Ht 175.3 cm; Wt 118.3 kg
[~2017-10-31] MED LIST changes: -AUGMENTIN 875-1 EACH PO; -MOMETASONE FURO30 ML OTIC
--- NOTE | ~2017-10-31 | HPC ---
[facility] [place] [address] PAIN MANAGEMENT CONSULTATION Name: ROSI VALDES Room #: REG Caroline Dailey#: [id number] Admission: 10/31/17 Attend Phys: Pio Johnson DO Discharge: Date of : 66 Report #: [id number] THIS REPORT FOR: //name// CC: Roxie Johnson DATE OF SERVICE: 10/31/2017 The patient is a very pleasant 46-year-old gentleman, well known to pain clinic, typically treated for neuropathic pain affecting bilateral feet, primary right foot pain status post multiple surgeries, axial back pain, chronic renal failure, chronic obstructive pulmonary disease, requiring complex medication management. The patient was last seen in the pain clinic 05/01/2017. Continued on hydrocodone 7.5/325 t.i.d. with methadone 10 mg at bedtime. The patient returns to pain clinic today. We had a moderately prolonged visit from 10:26 to 11:00 a.m., greater than 50% of time spent counseling the patient. He is noting pain continues to be a 6-7 on a VAS. He is wearing an abdominal binder. He notes sitting in a dialysis chair for up to 5 hours at a time, 3 days a week, significantly exacerbates the axial back pain. He feels the hydrocodone 7.5/325 t.i.d. is not relieving the breakthrough pain specifically on these days. The patient notes pain is a 6-7 on a VAS, chronic pain in the bottom of his feet with ongoing axial back pain that is exacerbated with standing, walking and dialysis cycles. Notes medication does help some. Medication list was reconciled; the patient takes Lasix, albuterol, hydralazine and clonidine. The patient tells me today that he has been approved for kidney transplant list. He talked today about learning to dialyze at home overnight. He is hopeful that he can get a kidney transplant. We reviewed the fact that opiate medications are being used to provide analgesia adequate to support activities of daily living, not attempting to achieve a specific pain score on the 0-10 Visual Analog Scale. The current opiate medications are providing sufficient analgesia to allow the patient to participate in activities of daily living. The patient is not exhibiting any aberrant behavior suggestive of drug diversion. The patient is not having any adverse reactions to medications. The patient is not suffering from daytime somnolence or mental acuity changes. The patient is managing opiate-induced constipation with appropriate elht-pjb-idlsjxr agents and dietary [address] [address] PAIN MANAGEMENT CONSULTATION Name: ROSI VALDES Room #: REG CLCaroline Dailey#: [id number] Admission: 10/31/17 Attend Phys: Pio Johnson DO Discharge: Date of : 66 Report #: [id number] considerations. The patient was counseled on concern for caution with operating a motor vehicle while using opiate medications. A physical exam was performed and the patient's functional status was evaluated. All patients with back pain were advised against the bed rest greater than 4 days and were advised to return to normal activities. Pain score assessment was noted and the treatment plan was reviewed with the patient. All current medications, both prescribed and OTC were reviewed and reconciled on the electronic medical record. Tobacco screening was accomplished and smoking cessation was advised when indicated. BMI was noted and diet/exercise modification was recommended for all patients following outside normal parameters. I reviewed with the patient today their responsibilities to safeguard prescription medications, reviewed their responsibility to utilize medications only as prescribed by the physician. They are to seek and receive pain medications only from 1 physician group ( [facility]). They are to use 1 pharmacy and keep the clinic informed if they change pharmacies. Their responsibilities include making followup visits in a timely fashion and to avoid abrupt discontinuation of medication usage. Their responsibilities further include bringing their medications (bottles from the pharmacy with residual pills) to the visit for possible confirmation of pill counts and the patient understands it is their responsibility to submit to random drug screens to ensure both that the medications prescribed are present, and that no other controlled substances are present. All prescriptions provided today were generated electronically. PHYSICAL EXAMINATION: Shows a 46-year-old gentleman, BMI is elevated at 38.5 kg per meter squared, blood pressure is 147/88, pulse is 91, respirations are 18, room air oxygen saturation 100%. The patient has a history of COPD, is on supplemental oxygen. Pulmonary function appears to be improving. He has a significantly endomorphic build. He is wearing an abdominal binder today. He is alert and oriented to person, place and time, judged to be a reasonable historian. Rises from chair using armrest. Diffuse tenderness across the low back, peripheral neuropathy. Gait is tandem, modestly ataxic. Subjective pain score is 6-7 on a VAS. He has not fallen in the last 3 months. We reviewed the opiate consent to treat contract signed 10/20/2015. Functional assessment score is fairly low today, 3/70. The patient is fairly stoic. Last random drug screen, 05/06/2017, was positive for prescribed medications. ASSESSMENT: Neuropathic pain, bilateral feet; chronic right ankle pain, status post multiple surgeries; axial back pain exacerbated by dialysis, chronic renal failure, chronic obstructive pulmonary disease, requiring complex medication management. [facility] [address] [place] [address] PAIN MANAGEMENT CONSULTATION Name: ROSI VALDES Room #: [facility]#: [id number] Admission: 10/31/17 Attend Phys: Pio Johnson DO Discharge: Date of : 66 Report #: [id number] RECOMMENDATION: Continue methadone 10 mg at bedtime. We will rotate from hydrocodone 7.5/325 t.i.d. to hydrocodone 10 b.i.d. The patient cautioned about daytime somnolence, mental acuity changes, and constipation. This equates to roughly 60 milligram morphine equivalent a day. I have taken the liberty of writing for 2 months of current medication. We will have the patient follow up with one of my [facility]. He has been remarkably stable on his medications, no problems with daytime somnolence, mental acuity changes or constipation. No problems with "early refills." <ELECTRONICALLY SIGNED> By: Pio Johnson DO 10/31/17 1445 1140 1429 Pio Johnson DO /nt
[2017-10-31 10:16] VITALS: BP 147/88
== END ==
LOC: PAIN 07:06
DX: M54.5 Low back pain (principal); M79.672 Pain in left foot; M79.671 Pain in right foot; M25.571 Pain in right ankle and joints of right foot; J44.9 Chronic obstructive pulmonary disease, unspecified; N18.9 Chronic kidney disease, unspecified; G89.29 Other chronic pain; M79.2 Neuralgia and neuritis, unspecified; Z79.899 Other long term (current) drug therapy

== ENCOUNTER 2017-11-07 12:01 | Inpatient (IN) | payer BC, OTHER ==
[~2017-11-07] VITALS: Ht 175.3 cm; Wt 119.7 kg
--- NOTE | ~2017-11-07 | EKG ---
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
--- NOTE | ~2017-11-07 | HC ---
[facility] [place] [address] [address] [place] [address] CONSULTATION Name: ROSI VALDES Room #: 219-P [facility] IN ..#: [id number] Admission: 11/07/17 Attend Phys: Blue Burrows MD Discharge: 11/09/17 Date of : 66 Report #: [id number] THIS REPORT FOR: //name// CC: Roxie Burrows REASON FOR CONSULTATION: End-stage renal disease. REASON FOR PRESENTATION: Left-sided face, neck pain; chest pain. HISTORY OF PRESENT ILLNESS: A 46-year-old with past medical history of hypertension; cardiomyopathy; end-stage renal disease, maintained on dialysis. He dialyzes every Saturday, and Saturday. He started to have some left-sided facial, ear pain after the dialysis, associated with left-sided chest pain while breathing. This has happened in the last couple of minutes of his dialysis. He denies any other associated symptoms. The patient is currently maintained on a dialysis regimen with gentle fluid removal. He is going through the transplant workup. He denies that he had any syncopal episodes. No previous similar episodes. No nausea or vomiting. No other neurological manifestation. CT chest was negative for any acute issues of his chest. Lung V/Q was low probability for a PE. Troponins were negative. He is known to have bilateral complex renal cysts and those were discovered on the CT that was done yesterday. I am being asked to evaluate his end-stage renal disease and continue with the management. PAST MEDICAL HISTORY: 1. Hypertension. 2. Cardiomyopathy. 3. Back surgery. 4. Left surgery. 5. Left AV fistula. MEDICATIONS: 1. Methadone. 2. Calcium acetate: 3. Hydralazine. 4. Furosemide. SOCIAL HISTORY: He denies drug or alcohol abuse. He is a former smoker. He smoked for about 30 years and quit more than a year ago. REVIEW OF SYSTEMS: GENERAL: No fever or chills. CARDIOVASCULAR: As per the history of present illness. PULMONARY: As per the history of present illness. GASTROINTESTINAL: No nausea or vomiting. GENITOURINARY: He still makes urine. No urinary symptoms. [facility] [address] [place] [address] CONSULTATION Name: ROSI VALDES Diana Room #: 219-P [facility] IN ..#: [id number] Admission: 11/07/17 Attend Phys: Blue Burrows MD Discharge: 11/09/17 Date of : 66 Report #: [id number] FAMILY HISTORY: Significant for hypertension. PHYSICAL EXAMINATION: GENERAL: He is alert, oriented, in no apparent distress. VITAL SIGNS: Temperature 36.3, pulse rate 70, blood pressure 140/89. HEAD AND NECK: No jugular venous distention, no bruit, no thyromegaly. CHEST: Clear to auscultation bilaterally. CARDIOVASCULAR: Regular with no rub. ABDOMEN: Soft, nontender with no hepatosplenomegaly. LOWER EXTREMITIES: No edema. UPPER EXTREMITIES: Left AV fistula. LABORATORY DATA: Laboratory values reviewed. White blood cell count is down to 11.6. Sodium 135, BUN is 39, creatinine 6.5. IMAGING: Chest x-ray, lung CT, chest CT were all reviewed. ASSESSMENT, IMPRESSION AND PLAN: 1. End-stage renal disease. 2. Nonspecific left-sided facial and chest pain. 3. Cardiomyopathy. 4. Complex renal cysts. 5. Dialysis will be resumed as usual every Saturday, and Saturday. 6. Cardiac workup. 7. We will get an ultrasound of his kidneys given the CT findings. 8. Further evaluation of his facial and chest pain by primary team. 9. Resume his blood pressure medication. 10. Resume his outpatient dialysis related medication. <ELECTRONICALLY SIGNED> By: Mak Snow MD 11/11/17 0634 07 0741 Mak Snow MD /nt
--- NOTE | ~2017-11-07 | 2DMMODE ---
[facility] [address] [place] [address] 2 D/M-MODE ECHOCARDIOGRAM Name: ROSI VALDES Room #: 219-P [facility] IN ..#: [id number] Admission: 11/07/17 Attend Phys: Blue Burrows MD Discharge: Date of : 66 Date of Service: 11/08/17 0918 Report #: [id number] THIS REPORT FOR: //name// APPROVED REPORT Study performed: 11/08/2017 08:18:20 EXAM: Comprehensive 2D, Doppler, and color-flow Echocardiogram Patient Location: Echo lab Room #: 219 Status: routine BSA: 2.33 HR: 68 bpm BP: 112/70 mmHg Other Information Study Quality: Adequate Indications COPD Hypertension/HDD 2D Dimensions RVDd: 43.73 mm LVEF(%): 49.56 (>50%) IVSd: 13.59 (7-11mm) LVOT Diam: 21.26 (18-24mm) LVDd: 52.75 mm PWd: 12.53 (7-11mm) Ascending Ao: 34.02 (22-36mm) LVDs: 39.40 (25-40mm) Aortic Root: 33.64 mm IVC: 18.00 mm Dorman's LVEF: 49.56 % Volumes Left Atrial Volume (Systole) Single Plane 4CH: 55.05 mL Single Plane 2CH: 73.64 mL LA ESV Index: 29.00 mL/m2 Aortic Valve AoV Peak Marcus.: 1.74 m/s AO Peak Gr.: 12.11 mmHg LVOT Max P.69 mmHg LVOT Max V: 1.19 m/s ROSALINDA Vmax: 2.43 cm2 Mitral Valve E/A Ratio: 1.2 MV Decel. Time: 194.66 ms [facility] [place] [address] 2 D/M-MODE ECHOCARDIOGRAM Name: ROSI VALDES Room #: 219-P [facility] IN ..#: [id number] Admission: 11/07/17 Attend Phys: Blue Burrows MD Discharge: Date of : 66 Date of Service: 11/08/17 0918 Report #: [id number] MV E Max Marcus.: 1.10 m/s MV A Marcus.: 0.94 m/s MV PHT: 56.45 ms IVRT: 87.66 ms Pulmonary Valve PV Peak Marcus.: 1.12 m/s PV Peak Gr.: 5.04 mmHg Pulmonary Vein P Vein S: 0.53 m/s P Vein A: 0.25 m/s P Vein D: 0.37 m/s P Vein A Dur.: 138.4 msec P Vein S/D Ratio: 1.43 Tricuspid Valve TR Peak Marcus.: 2.53 m/s TR Peak Gr.: 25.57 mmHg PA Pressure: 30.00 mmHg Left Ventricle The left ventricle is normal size. There is normal LV segmental wall motion. Mild concentric left ventricular hypertrophy. The left ventricular systolic function is normal. The left ventricular ejection fraction is within the normal range. LVEF is >55%. Right Ventricle The right ventricle is normal size. The right ventricular systolic function is normal. Atria The left atrium size is normal. Right atrium is mildly dilated. Aortic Valve The aortic valve is normal in structure. No aortic regurgitation is present. There is no aortic valvular stenosis. Mitral Valve The mitral valve is normal in structure. There is no mitral valve regurgitation noted. No evidence of mitral valve stenosis. Tricuspid Valve The tricuspid valve is normal in structure. There is trace to mild tricuspid regurgitation. Estimated PAP 30 mmHg. There is mild pulmonary hypertension. Pulmonic Valve [address] [address] 2 D/M-MODE ECHOCARDIOGRAM Name: ROSI VALDES Room #: 219-P [facility]#: [id number] Admission: 11/07/17 Attend Phys: Blue Burrows MD Discharge: Date of : 66 Date of Service: 11/08/17 0918 Report #: [id number] The pulmonary valve is normal in structure. There is no pulmonic valvular regurgitation. Great Vessels The aortic root is normal in size. IVC is normal in size and collapses >50% with inspiration. Pericardium There is no pericardial effusion. <Conclusion> The left ventricle is normal size. Mild concentric left ventricular hypertrophy. The left ventricular systolic function is normal. The right ventricle is normal size. The left atrium size is normal. The aortic valve is normal in structure. There is no mitral valve regurgitation noted. There is trace to mild tricuspid regurgitation. Estimated PAP 30 mmHg. There is mild pulmonary hypertension. There is no pericardial effusion. <ELECTRONICALLY SIGNED> By: Hector Ricketts MD 11/08/17917 7 7 Hector Ricketts MD /INF
[2017-11-07 12:06] VITALS: BP 115/75
[2017-11-07 12:21] LABS: ABSOLUTE NEUTROPHILS 14.4 thou/uL (1.4-8.2); BASOPHILS 0.6 % (0.0-2.0); EOSINOPHILS 0.9 % (0.0-3.0); HEMATOCRIT 32.9 % (42.0-52.0); HEMOGLOBIN 11.4 gm/dL (14.0-18.0); LYMPHOCYTES 7.1 % (24.0-44.0); MCH 31.3 pg (26.0-34.0); MCHC 34.7 g/dL (28.0-37.0); MCV 90.1 fL (80.0-100.0); MONOCYTES 7.2 % (1.0-8.0); PLATELET COUNT 271 thou/uL (150-400); POLYS 84.2 % (36.0-66.0); RBC 3.65 mil/uL (4.50-6.00); RDW 13.9 % (10.5-14.5)
[2017-11-07 12:24] LABS: ANION GAP 7 mmol/L (7-16); BUN 28 mg/dL (7-18); CHLORIDE 95 mmol/L (98-107); CO2 32 mmol/L (21-32); CREATININE 5.1 mg/dL (0.7-1.3); GLUCOSE 115 mg/dL (74-106); SODIUM 134 mmol/L (136-145)
[2017-11-07 12:32] LABS: MAGNESIUM 1.8 mg/dL (1.8-2.4); SGOT 13 U/L (15-37); SGPT 32 U/L (30-65); TOTAL BILIRUBIN 0.4 mg/dL (<0.1-1.0); TOTAL PROTEIN 8.3 g/dL (6.4-8.2); TROPONIN-I <0.06 ng/mL (<0.06)
[2017-11-07 14:09] VITALS: BP 132/60
[2017-11-07 14:42] VITALS: BP 92/43
[2017-11-07] MEDS ORDERED: AMLODIPINE BESY10 MG PO (17:15)
[2017-11-07 20:19] VITALS: BP 152/98
[2017-11-08 04:14] LABS: ALBUMIN 3.7 g/dL (3.4-5.0); CALCIUM 8.6 mg/dL (8.5-10.1); PHOSPHORUS 5.4 mg/dL (2.5-4.9); POTASSIUM 4.4 mmol/L (3.5-5.1)
[2017-11-08 04:19] LABS: CREATININE 6.5 mg/dL (0.7-1.3)
[2017-11-08 04:27] LABS: HEMATOCRIT 31.4 % (42.0-52.0); HEMOGLOBIN 10.6 gm/dL (14.0-18.0); MCH 31.2 pg (26.0-34.0); MCHC 33.6 g/dL (28.0-37.0); MCV 92.9 fL (80.0-100.0); RBC 3.38 mil/uL (4.50-6.00); RDW 14.2 % (10.5-14.5); WBC 11.6 thou/uL (4.0-11.0)
[2017-11-08 04:47] VITALS: BP 148/89
[2017-11-08 07:26] VITALS: BP 112/70
[2017-11-08 11:29] VITALS: BP 103/65
[2017-11-08 17:29] LABS: URINE BILIRUBIN NEGATIVE (Negative); URINE BLOOD TRACE (Negative); URINE CLARITY CLEAR; URINE COLOR YELLOW; URINE GLUCOSE-RANDOM* NEGATIVE (Negative); URINE KETONES NEGATIVE (Negative); URINE LEUKOCYTES-REFLEX NEGATIVE (Negative); URINE NITRITE-REFLEX NEGATIVE (Negative); URINE PROTEIN (DIPSTICK) 2+ (Negative); URINE UROBILINOGEN 0.2 E.U./dl (0.2-1.0)
[2017-11-08 17:40] LABS: CASTS None Seen /LPF (None Seen); CRYSTALS None Seen /LPF (None Seen); SQUAMOUS None Seen /LPF (0-3)
[2017-11-08 17:41] LABS: BACTERIA-REFLEX 1-9 Few /HPF (None Seen); URINE RBC None Seen /HPF (0-2); URINE WBC-REFLEX None Seen /HPF (0-5)
[2017-11-08 17:48] VITALS: BP 112/73
[2017-11-08 19:05] VITALS: BP 110/73
[2017-11-09 05:18] VITALS: BP 120/67
[2017-11-09 07:24] VITALS: BP 117/61
[2017-11-09 09:04] LABS: HEMATOCRIT 31.4 % (42.0-52.0); HEMOGLOBIN 10.7 gm/dL (14.0-18.0); MCHC 34.1 g/dL (28.0-37.0); MCV 90.8 fL (80.0-100.0); RBC 3.46 mil/uL (4.50-6.00); RDW 13.9 % (10.5-14.5); WBC 13.1 thou/uL (4.0-11.0)
[2017-11-09 09:18] LABS: ALBUMIN 3.6 g/dL (3.4-5.0); CALCIUM 8.9 mg/dL (8.5-10.1); PHOSPHORUS 6.3 mg/dL (2.5-4.9); POTASSIUM 4.8 mmol/L (3.5-5.1)
[2017-11-09 09:22] LABS: CREATININE 9.1 mg/dL (0.7-1.3)
[2017-11-09] MEDS ORDERED: AUGMENTIN 875-1 EACH PO (13:40)
[2017-11-09] MEDS ORDERED: MOMETASONE FURO30 ML OTIC (14:44)
[2017-11-09 14:45] VITALS: BP 117/61
== END 2017-11-09 15:44 | disposition home or self-care (01) | DRG 177 ==
LOC: ER 12:01 → EROBS 13:52 → 2N 13:52
PROVIDERS: Emergency Medicine; Hospitalist
PROC: 5A1D70Z Performance of Urinary Filtration, Intermittent, Less than 6 Hours Per Day (ICD-10-PCS; principal; 2017-11-08)
DX: J69.0 Pneumonitis due to inhalation of food and vomit (principal); N18.6 End stage renal disease; I13.2 Hypertensive heart and chronic kidney disease with heart failure and with stage 5 chronic kidney disease, or end stage renal disease; I50.20 Unspecified systolic (congestive) heart failure; I42.9 Cardiomyopathy, unspecified; J44.9 Chronic obstructive pulmonary disease, unspecified; R07.89 Other chest pain; L30.9 Dermatitis, unspecified; E11.22 Type 2 diabetes mellitus with diabetic chronic kidney disease; N28.1 Cyst of kidney, acquired; G89.29 Other chronic pain; Z87.891 Personal history of nicotine dependence; Z99.2 Dependence on renal dialysis; Z79.899 Other long term (current) drug therapy
CPT/HCPCS: 10081; 32100

== ENCOUNTER → 2018-02-12 | Outpatient (CLI) | payer BC, OTHER ==
[~2018-02-12] MED LIST changes: +AUGMENTIN 875-1 EACH PO; +MOMETASONE FURO30 ML OTIC
--- NOTE | ~2018-02-12 | PATH ---
[facility] [address] [address] PATHOLOGY RPT PROCEDURE Name: JOSH VALDES Diana Room #: REG VICENTE Salomón.#: [id number] Admission: 02/12/18 Date of : 66 Discharge: Report #: [id number] Path Case #: [id number] [facility] Accession Number: [id number] . 01 Material submitted: . PART A: BX OF GASTRIC R/O H. PYLORI PART B: POLYP AT MID TRANSVERSE COLON PART C: POLYP AT 15CM PART D: POLYP AT RECTUM, DISTAL . 01 Clinical history: . Pre-OP DX: Anemia Post-OP DX: Gastroduodenitis . 02 Diagnosis: A. Gastric mucosa, rule out H. pylori, endoscopic biopsy: - Mild chronic active gastritis, focal. - Negative for intestinal metaplasia or atrophy. - Negative for Helicobacter pylori (properly-controlled immunohistochemical stain performed). . B. Polyp, at mid transverse colon, endoscopic biopsy: - Tubular adenoma. - Negative for high grade dysplasia. - Cauterized / inked margin showing unremarkable mucosa. . C. Polyp, at 15 cm, endoscopic biopsy: - Hyperplastic polyp. - Negative for dysplasia. . D. Polyp, at distal rectum, endoscopic biopsy: - Hyperplastic polyp. - Negative for dysplasia. . (IUV:mml; 02/13/18) QL/02/13/2018 . 02 Electronically signed: . Shira Healy MD, Pathologist NPI- [id number] . 01 Gross description: . A. Received in formalin labeled "Josh Valdes, BX of gastric, rule out H. pylori," are 2 segments of shirley soft tissue measuring 0.9 x 0.2 x 0.2 cm in aggregate dimensions and ranging from 0.4 to 0.6 cm in maximum dimension. The specimen is submitted entirely in cassette [place] [address] PATHOLOGY RPT PROCEDURE Name: JOSH VALDES Room #: REG CLI Asim#: [id number] Admission: 02/12/18 Date of : 66 Discharge: Report #: [id number] Path Case #: [id number] B. Received in formalin labeled "Josh Valdes, polyp at mid transverse colon," is a 0.8 x 0.5 x 0.4 cm polypoid piece of shirley soft tissue with a stalk measuring 0.3 cm in length and 0.4 cm in diameter. The margin of the stalk is inked and the specimen is sectioned perpendicular to the margin and entirely submitted in cassette B1 and B2. . C. Received in formalin labeled "Josh Valdes, polyp at 15 cm," is a 0.5 x 0.4 x 0.4 cm polypoid piece of shirley soft tissue. The margin is inked and the specimen is sectioned perpendicular to the margin and entirely submitted in cassette C1. . D. Received in formalin labeled "Josh Valdes, polyp at rectum," and additionally labeled on the requisition as, "distal" is a single segment of shirley soft tissue measuring 0.4 cm in maximum dimension. The specimen is entirely submitted in cassette D1. (TSD; 02/12/2018) TOB/TOB . 02 Pathologist provided ICD-10: D12.3, K29.50, K63.5, K62.1 . 02 CPT . 614083, 995095, 895142, 473239, G17108 Specimen Comment: A courtesy copy of this report has been sent to Specimen Comment: [phone], , . Specimen Comment: Report sent to ,DR PHILLIP / DR STEINER Performed at: [address] [facility], [place] [id number] MD Jorgito Kilgore MD Phone: [phone] Performed at: [address] [id number] MD Shira Healy MD Phone: [phone]
--- NOTE | ~2018-02-12 | P ---
[facility] [place] [address] PROCEDURE REPORT Name: ROSI VALDES Room #: REG [facility]#: [id number] Admission: 02/12/18 Attend Phys: Wai Foreman MD Discharge: Date of : 66 Report #: [id number] THIS REPORT FOR: //name// CC: WAI Santos MD DATE OF SERVICE: 02/12/2018 PROCEDURE: Esophagogastroduodenoscopy with biopsies. Patient of Dr. Roxie Santos and Dr. Wai Foreman. INDICATION FOR PROCEDURE: This patient has been experiencing bright red blood per rectum. Apparently, he told in the office that he was actually having dark red blood per rectum, so he was signed up for an EGD and a colonoscopy and both were done. This was painless hematochezia and has been going on for several weeks to months. Informed consent for this procedure was obtained prior to the administration of any medication. The risks of the procedure, which include bleeding, perforation, infection, complications of sedation and the possibility I could miss something have been explained to the patient and he has indicated his consent by signing. Anesthesia kindly provided deep sedation for both EGD and colonoscopy. Please see their notes for medications administered. DESCRIPTION OF PROCEDURE: The Olympus upper videoscope was introduced through the upper esophageal sphincter and advanced under direct visualization to the third portion of the duodenum. Findings are noted on withdrawal of the scope. First of all, it should be noted there was no blood noted in the upper GI tract. The visualized portion of the second and third portions of the duodenum appeared normal. In the duodenal bulb, there was edema, nodularity and some mild erythema. Pylorus, mild erythema was noted. Antrum, mild erythema was noted. Biopsies obtained from the antrum x 2 for histopathology to evaluate for possible H. pylori infection. Body, normal mucosa. Cardia and fundus, normal mucosa. Retroflex view did not reveal any abnormalities. The scope was withdrawn to the esophagus. The Z-line was appropriately located at the top of the gastric folds at 45 cm and is appropriately located and is normal. The esophageal mucosa appeared normal throughout its entirety. There was no evidence of any esophageal or gastric varices. The scope was withdrawn. The patient was turned for colonoscopy. IMPRESSION: Mild gastroduodenitis, as above. Biopsies pending. [address] [address] PROCEDURE REPORT Name: ROSI VALDES Room #: REG VICENTE Dailey#: [id number] Admission: 02/12/18 Attend Phys: Wai Foreman MD Discharge: Date of : 66 Report #: [id number] RECOMMENDATIONS: To await the biopsy results and we will proceed with colonoscopy at this time. Thank you very much once again for allowing me to participate in his care, Dr. Santos. PROCEDURE: Colonoscopy with snare polypectomies. INDICATION FOR PROCEDURE: Evaluate painless hematochezia and screen for possible colon polyps and colon carcinoma. Informed consent for this procedure was obtained prior to the administration of any medication. The risks of the procedure, which include bleeding, perforation, infection, complications of sedation and the possibility I could miss something have been explained to the patient and he has indicated his consent by signing. Anesthesia kindly provided deep sedation for this procedure. DESCRIPTION OF PROCEDURE: Digital rectal exam was initially done and no palpable masses were encountered. Anal sphincter tone appears to be normal. Then, the Olympus colonoscope was introduced through the anal sphincter and advanced under direct visualization to the terminal ileum without difficulty. Findings were noted on withdrawal of the scope. The distal ileum appears normal in the distal 10 cm. The ileocecal valve appears normal. The cecum itself is difficult to visualize because of lot of retained vegetation. I tried to move this around and was able to see I think adequately most of the cecum. Small mucosal lesions could have been missed, but we were able to see the appendiceal orifice. Ascending colon, normal mucosa. Hepatic flexure, normal mucosa. Transverse colon, in the mid transverse colon, there is a 1 cm sessile polyp removed in toto with a hot snare and sent to pathology lab. Good hemostasis was noted after that polypectomy. The remaining transverse colonic mucosa appears normal. Splenic flexure, normal mucosa. Descending colon, normal mucosa. Sigmoid colon, at 15 cm in the distal sigmoid colon, there is a 4-5 mm polyp that was removed in toto with a hot snare and sent to pathology lab. Good hemostasis noted after that polypectomy as well. No other abnormalities were seen in the sigmoid colon. Rectum, normal mucosa. Retroflex view reveals a single small 2 mm polyp removed in toto with the regular biopsy forceps and sent to pathology lab. Good hemostasis was noted after that polypectomy. There were prominent hemorrhoidal veins noted. The scope was withdrawn slowly through the anal canal. I do see 1 external hemorrhoid, which may be the source of his bright red blood per rectum. There were no internal hemorrhoids. The scope was withdrawn. The patient went to the recovery area in stable condition. He tolerated the procedure well. [facility] [address] [place] [address] PROCEDURE REPORT Name: ROSI VALDES Room #: ALEYDA Dailey#: [id number] Admission: 02/12/18 Attend Phys: Wai Foreman MD Discharge: Date of : 66 Report #: [id number] IMPRESSION: 1. Three colon polyps removed as above, one was 10 mm. It was the largest. 2. External hemorrhoids, the likely source of his hematochezia. Recommendations are for him to follow up with surgery if he would like to have this hemorrhoid banded or removed. Right now, I could try localized therapy, which would be Sitz baths, topical steroids and possibly Anusol cream. Thank you very much once again for allowing me to participate in his care, Dr. Santso. <ELECTRONICALLY SIGNED> By: Valeri Manjarrez DO 02/14/18 0711 1514 0056 Valeri Manjarrez DO /nt
[2018-02-12 13:38] LABS: HEMATOCRIT 32.2 % (42.0-52.0); HEMOGLOBIN 10.9 gm/dL (14.0-18.0); MCH 31.5 pg (26.0-34.0); MCHC 33.7 g/dL (28.0-37.0); MCV 93.5 fL (80.0-100.0); RBC 3.44 mil/uL (4.50-6.00); RDW 14.3 % (10.5-14.5); WBC 11.8 thou/uL (4.0-11.0)
[2018-02-12 13:46] LABS: CALCIUM 9.8 mg/dL (8.5-10.1); CREATININE 8.7 mg/dL (0.7-1.3); POTASSIUM 4.5 mmol/L (3.5-5.1)
== END | disposition home or self-care (01) ==
LOC: GI 12:57
PROVIDERS: Internal Medicine Gastroenterology
DX: D12.3 Benign neoplasm of transverse colon (principal); K63.5 Polyp of colon; K29.50 Unspecified chronic gastritis without bleeding; K64.4 Residual hemorrhoidal skin tags; I13.2 Hypertensive heart and chronic kidney disease with heart failure and with stage 5 chronic kidney disease, or end stage renal disease; E11.22 Type 2 diabetes mellitus with diabetic chronic kidney disease; I50.9 Heart failure, unspecified; N18.6 End stage renal disease; G47.33 Obstructive sleep apnea (adult) (pediatric); E66.09 Other obesity due to excess calories; Z99.2 Dependence on renal dialysis; Z79.899 Other long term (current) drug therapy; Z98.890 Other specified postprocedural states; Z79.891 Long term (current) use of opiate analgesic; Z86.718 Personal history of other venous thrombosis and embolism; Z79.01 Long term (current) use of anticoagulants
CPT/HCPCS: 62110; 62900

== ENCOUNTER → 2018-02-28 | Outpatient (CLI) | payer BC, OTHER ==
[~2018-02-28] VITALS: Ht 175.3 cm; Wt 121.0 kg
--- NOTE | ~2018-02-28 | HPC ---
[facility] [place] [address] PAIN MANAGEMENT CONSULTATION Name: ROSI VALDES Room #: REG SHUNCaroline Dailey#: [id number] Admission: 02/28/18 Attend Phys: Maribeth Hays Discharge: Date of : 66 Report #: [id number] THIS REPORT FOR: //name// CC: Maribeth Santos DATE OF SERVICE: 02/28/2018 CHIEF COMPLAINT: Left inner foot pain, low back pain. HISTORY OF PRESENT ILLNESS: The patient is a 47-year-old gentleman well known to the clinic, has been seeing Dr. Pio Johnson in the past for his neuropathic pain in his feet, primarily left foot today. He tells me that it is tingly, achy, worse with walking and standing and his dialysis. He said it is 4 today, that he just took his medicines and the pain level should reduce some. He said sitting and his medications significantly improve his pain. He tells me that he has been very constipated. He said the only time recently he has not been constipated is when he took his bowel prep for his colonoscopy. We have asked that he wanted to continue that kind of prep daily and then he would not have any issues. He said well that is probably at the best for him, so we discussed MiraLax on a daily basis. The patient states he has not tried that, he has only Dulcolax tablets and Senokot. The patient is agreeable to try MiraLax first. If that does not work, we provided him with samples for Movantik, the renal dose 12.5 mg a day that he will try if the MiraLax is ineffective for him. If the patient does need to take Movantik, then he will call us. The patient states that he continues to work and has dialysis 3 times a day. ALLERGIES: No known drug allergies. CURRENT LIST OF MEDICATIONS: Methadone 10 mg once a day, hydrocodone 10/325 twice a day, amlodipine 10 mg daily, Lasix 40 mg daily, calcium, Nephrocaps, mometasone furoate solution for his ears. PQRS: 1. History of osteoarthritis in his back. Denies rheumatoid arthritis. 2. Height 5 feet 9 inches, weight 266, the patient's BMI is 39.4. 3. Vital signs: Blood pressure 106/68, pulse is 94, respirations 16, oxygen sat is 97%. 4. Pain score of 4. 5. Fall risk. Denies dizziness. Does not need help walking or standing and has not fallen in the last 3 months. 6. Denies blood thinners. 7. Does have a history of hypertension. 8. Opioid therapy greater than 6 weeks. He has opioid signed contract on the [address] [address] PAIN MANAGEMENT CONSULTATION Name: ROSI VALDES Room #: REG CLI Asim#: [id number] Admission: 02/28/18 Attend Phys: Maribeth Hays Discharge: Date of : 66 Report #: [id number] chart. 9. Risk assessment tool is low. 10. Functional assessment is 07/03. 11. The patient denies recreational drug use, is a former smoker and does not drink alcohol. We checked [place] and [place] drug monitoring system and nothing was available, so we called the patient's [facility] and they told us that he was only filling from our clinic doctors at appropriate times. I am unsure why it was not reported on the monitoring system. The patient tells me he safeguards his meds and keeps them locked up. PHYSICAL EXAMINATION: GENERAL: This is a well-developed, well-nourished gentleman who appears his stated age. He is alert and oriented. HEENT: Normocephalic, atraumatic. Extraocular eye movements intact. Mucous membranes are moist. NECK: Good range of motion. EXTREMITIES: Upper extremity strength is judged to be 5/5 in his major muscle groups. MUSCULOSKELETAL: The patient appears without scoliosis, kyphosis or lordosis. Pain involving lower back, bilateral legs and feet, numbness and tingling. Also has a shunt present for his dialysis catheter in his left upper arm. IMPRESSION: 1. Chronic pain involving low back, left leg and feet. 2. Neuropathic pain. 3. Chronic renal failure, the patient on dialysis. 4. Complex pain management with opioid medicines. We reviewed the fact that opiate medications are being used to provide analgesia adequate to support activities of daily living, not attempting to achieve a specific pain score on the 0-10 Visual Analog Scale. The current opiate medications are providing sufficient analgesia to allow the patient to participate in activities of daily living. The patient is not exhibiting any aberrant behavior suggestive of drug diversion. The patient is not having any adverse reactions to medications. The patient is not suffering from daytime somnolence or mental acuity changes. The patient is managing opiate-induced constipation with appropriate upbc-glf-vgmvzcr agents and dietary considerations. The patient was counseled on concern for caution with operating a motor vehicle while using opiate medications. A physical exam was performed and the patient's functional status was evaluated. All patients with back pain were advised against the bed rest greater than 4 days and were advised to return to normal activities. Pain score assessment was noted and the treatment plan was reviewed with the patient. All current [address] [address] PAIN MANAGEMENT CONSULTATION Name: ROSI VALDES Room #: REG [facility].#: [id number] Admission: 02/28/18 Attend Phys: Maribeth HUE Lis Discharge: Date of : 66 Report #: [id number] medications, both prescribed and OTC were reviewed and reconciled on the electronic medical record. Tobacco screening was accomplished and smoking cessation was advised when indicated. BMI was noted and diet/exercise modification was recommended for all patients following outside normal parameters. I reviewed with the patient today their responsibilities to safeguard prescription medications, reviewed their responsibility to utilize medications only as prescribed by the physician. They are to seek and receive pain medications only from 1 physician group ( [facility]). They are to use 1 pharmacy and keep the clinic informed if they change pharmacies. Their responsibilities include making followup visits in a timely fashion and to avoid abrupt discontinuation of medication usage. Their responsibilities further include bringing their medications (bottles from the pharmacy with residual pills) to the visit for possible confirmation of pill counts and the patient understands it is their responsibility to submit to random drug screens to ensure both that the medications prescribed are present, and that no other controlled substances are present. All prescriptions provided today were generated electronically. PLAN: 1. The patient is here for medication refills. States the medications are very helpful in reducing his pain. 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 Therefore, today, we have given him methadone 10 mg 1 tablet a day, #30 with 1 refill for today and again in 4 weeks. Second medication is hydrocodone 10/325, #60 for refill for today and in [address] his MME, morphine mEq per the CDC guidelines at 60. Therefore, we have only given him 2 months and he returns in followup every 2 months. 2. The patient has complained of constipation. We discussed in great length regarding medicines he has tried in the past such as Colace, Senokot, Dulcolax and none have been helpful. The best results that he had was when he had his bowel prep for his colonoscopy. It was decided today to start on MiraLax 1 capful daily. The patient is to try that for a week. If that is not helpful, then he was provided with Movantik samples, the 12.5 mg renal dose. He will take those if the MiraLax is ineffective in relieving his constipation. If the Movantik is effective, he will call and get a prescription at that time. The patient is agreeable with this plan of care. He will be seen in followup in 2 months by myself and then he will follow up with Dr. Doss after that visit. The patient seen in collaboration today with Dr. Darwin Doss. <ELECTRONICALLY SIGNED> By: Maribeth Hays 03/03/18 0715 0904 2226 Maribeth Hays /nt
[2018-02-28 08:22] VITALS: BP 106/68
== END ==
LOC: PAIN 06:46
DX: G89.29 Other chronic pain (principal); M79.672 Pain in left foot; M79.605 Pain in left leg; M79.2 Neuralgia and neuritis, unspecified; N18.9 Chronic kidney disease, unspecified; F11.23 Opioid dependence with withdrawal

== ENCOUNTER → 2018-04-30 | Outpatient (CLI) | payer BC, OTHER ==
[~2018-04-30] VITALS: Ht 175.3 cm; Wt 125.2 kg
[~2018-04-30] MED LIST changes: +CALCITRIOL0.5 MCG PO; +COREG6.25 MG PO; +MOVANTIK12.5 MG PO; +SENSIPAR 30 MG30 M1 PO
[2018-04-30 09:45] VITALS: BP 124/80
--- NOTE | 2018-04-30 09:48 | NUR ---
Pain Clinic Assessment: 1. History of Osteoarthritis: Not Applicable History of Rheumatoid Arthritis: Not Applicable 2. Height: 5 ft. 9 in. 175.3 cm. Weight: 276.0 lb. oz. 125.193 kg. Patient's BMI: 40.7 3. Vital Signs: BP: 124/80 Pulse: 78 Resp: 16 Temp: 02 Sat: 97 ECG Mon: 4. Pain Intensity: 5 5. Fall Risk: Dizziness: N Needs help standing or walking: N Fallen in the last 3 months: N Fall risk comments: 6. Patient on Blood Thinner: None 7. History of Hypertension: Y 8. Opioid Therapy greater than 6 weeks: Y Opiate Contract Signed: 10/20/15 9. Risk Assessment Tool Provided: 0/LOW 10. Functional Assessment Tool: 11. Recreational Drug Use: Never Drug Type: Tobacco Use: Former Smoker Tobacco Type: Amount or Packs/day: How Many Years: Alcohol Use: No Frequency: Quant:
--- NOTE | 2018-05-01 07:55 | HPC ---
[facility] [place] [address] [place] [address] PAIN MANAGEMENT CONSULTATION Name: ROSI VALDES Room #: REG [facility] [place].#: [id number] Admission: 04/30/18 Attend Phys: Maribeth Hays Discharge: Date of : 66 Report #: [id number] THIS REPORT FOR: //name// CC: Maribeth Hays Roxie Samayoaz DATE OF SERVICE: 04/30/2018 CHIEF COMPLAINT: Left foot pain and low back pain. HISTORY OF PRESENT ILLNESS: This is a 47-year-old gentleman well known to the pain clinic, followed for his neuropathic pain in his feet, primarily his left foot. He does have low back pain as well. He tells me that he is still not on the kidney transplant list, but does have an appointment in April to see the doctors and hopefully will be on the transplant list after that. He does do home dialysis 3 days a week. He continues to work at [employer] and will restart his job after the long break they get at the end of the year on Saturday. The patient tells me that the methadone has been very helpful in relieving some of his foot pain. He tells me he has continued to have problems with constipation and has tried MiraLax, Dulcolax and Colace. He had some samples of Movantik that had helped this and would like a prescription for that today. ALLERGIES: No known drug allergies. CURRENT LIST OF MEDICATIONS: Methadone 10 mg once a day, carvedilol 6.25 twice a day, Sensipar 30 mg daily, Citracal, calcitriol 0.5 mcg daily, hydrocodone 10/325 b.i.d., amlodipine 10 mg daily, Lasix 40 mg daily, calcium acetate 667 mg daily, Nephrocaps daily. PQRS: 1. He has a history of osteoarthritis in his back. Denies rheumatoid arthritis. 2. Height is 5 feet 9 inches, weight is 276, BMI is 40.7. 3. Vital signs: Blood pressure 124/80, pulse is 78, respirations 16, oxygen sat is 97%. 4. Pain score is 5/10. Fall risk, denies dizziness. Does not need help walking or standing. He has not fallen in the last 3 months. 5. Denies blood thinners, does take antihypertensive medicines. 6. Opioid therapy is greater than 6 weeks. Therefore, an opioid signed contract is on the chart. 7. Risk assessment tool is low. His functional assessment is 3/70. 8. Recreational drug use, he denies. He is a former smoker and does not drink alcohol. He did check the prescription monitoring system. The patient is filling appropriately with Dr. Doss for all of his opioid medications. There is a recent drug screen [place] [address] PAIN MANAGEMENT CONSULTATION Name: RSOI VALDES Room #: REG VICENTE Dailey#: [id number] Admission: 04/30/18 Attend Phys: Maribeth Hays Discharge: Date of : 66 Report #: [id number] PHYSICAL EXAMINATION: GENERAL: Well-developed, well-nourished gentleman who appears his stated age. He is alert and oriented. HEENT: Normocephalic, atraumatic. Extraocular eye muscles are intact. Mucous membranes are moist. NECK: Without JVD or adenopathy. EXTREMITIES: Upper extremity strength judged to be 5/5 major muscle groups. Does have a shunt present in his left upper arm for dialysis. MUSCULOSKELETAL: The patient appears without scoliosis, kyphosis or lordosis. Pain in his lower back and feet. Numbness and tingling present in his feet today. IMPRESSION: 1. Chronic pain involving low back pain, left leg and feet. 2. Neuropathic pain. 3. Chronic renal failure. The patient is on home hemodialysis. 4. Opioid-induced constipation. 5. Complex pain management with opioid medications under written opioid agreement. We reviewed the fact that opiate medications are being used to provide analgesia adequate to support activities of daily living, not attempting to achieve a specific pain score on the 0-10 Visual Analog Scale. The current opiate medications are providing sufficient analgesia to allow the patient to participate in activities of daily living. The patient is not exhibiting any aberrant behavior suggestive of drug diversion. The patient is not having any adverse reactions to medications. The patient is not suffering from daytime somnolence or mental acuity changes. The patient is managing opiate-induced constipation with appropriate rwaw-ztl-dyvrgob agents and dietary considerations. The patient was counseled on concern for caution with operating a motor vehicle while using opiate medications. A physical exam was performed and the patient's functional status was evaluated. All patients with back pain were advised against the bed rest greater than 4 days and were advised to return to normal activities. Pain score assessment was noted and the treatment plan was reviewed with the patient. All current medications, both prescribed and OTC were reviewed and reconciled on the electronic medical record. Tobacco screening was accomplished and smoking cessation was advised when indicated. BMI was noted and diet/exercise modification was recommended for all patients following outside normal parameters. I reviewed with the patient today their responsibilities to safeguard prescription medications, reviewed their responsibility to utilize medications only as prescribed by the physician. They are to seek and receive pain [address] [address] PAIN MANAGEMENT CONSULTATION Name: ROSI VALDES [facility] [id number] Admission: 04/30/18 Attend Phys: Maribeth Hays Discharge: Date of : 66 Report #: [id number] medications only from 1 physician group ( [facility]). They are to use 1 pharmacy and keep the clinic informed if they change pharmacies. Their responsibilities include making followup visits in a timely fashion and to avoid abrupt discontinuation of medication usage. Their responsibilities further include bringing their medications (bottles from the pharmacy with residual pills) to the visit for possible confirmation of pill counts and the patient understands it is their responsibility to submit to random drug screens to ensure both that the medications prescribed are present, and that no other controlled substances are present. All prescriptions provided today were generated electronically. PLAN: 1. The patient will return to the pain clinic today and discussed treatment options. We will refill his methadone 10 mg, takes one tablet daily. The patient finds this is very beneficial. Scripts given for today, 4-week release. 2. Medicine hydrocodone 10/325, #60, refill for today and then 4-week. 3. The patient again complaints of constipation. We have tried Senokot-S, Dulcolax and MiraLax on the patient. None have been very helpful. He had some samples of Movantik in the past that he found that were effective. Script given today for his opioid-induced constipation, Movantik 12.5 mg, which is the renal dose of this medication. 4. The patient will return in 2 months' timeframe for medication refill. The patient is seen today in collaboration with Dr. Ortiz Doss. <ELECTRONICALLY SIGNED> By: Maribeth Hays 05/01/18 0755 1031 1222 Maribeth Hays /nt
== END ==
LOC: PAIN 08:20
DX: M54.5 Low back pain (principal); M79.672 Pain in left foot; G89.29 Other chronic pain; G62.9 Polyneuropathy, unspecified; N18.9 Chronic kidney disease, unspecified; F11.99 Opioid use, unspecified with unspecified opioid-induced disorder; K59.09 Other constipation; Z79.899 Other long term (current) drug therapy; Z99.2 Dependence on renal dialysis

== ENCOUNTER → 2018-06-25 | Outpatient (CLI) | payer BC, OTHER ==
[~2018-06-25] VITALS: Ht 175.3 cm; Wt 124.5 kg
--- NOTE | ~2018-06-25 | HPC ---
[facility] [address] [place] [address] PAIN MANAGEMENT CONSULTATION Name: LUCIOROSI DELFINA Room #: REG VICENTE Lorenzana.#: [id number] Admission: 06/25/18 ������������������ Attend Phys: Fredy Doss MD Discharge: ������������������ Date of : 66 Report #: [id number] THIS REPORT FOR: //name// CC: Fredy Ponce DATE OF SERVICE: 06/25/2018 HISTORY: The patient is a 47-year-old gentleman who has been followed in the pain clinic because of chronic pain. He has experienced pain in his feet bilaterally. Has had some right foot pain and status post multiple surgeries. He has also had some axial pain and is treated with dialysis because of chronic renal failure. States that he has been on dialysis for about a year and a half. He actually does this at home. Continues to work for [employer]. Dialyzes about 3 times per week. Overall, he feels that things are going reasonably well. He did smoke for about 30 years. Smoked 2-3 packs of cigarettes per day. He has been off cigarettes for the last year. He feels the things are going reasonably well with his dialysis at home. His is helpful. Continues to work hard and does not miss work. Has not had to use family medical leave. Overall, things are going well. He would like to have his medications renewed. He has returned for a renewal of his medications today. ALLERGIES: No known drug allergies. CURRENT MEDICATIONS: Movantik 12.5 mg, methadone 10 mg, hydrocodone 10/325 b.i.d., Coreg 6.25 mg b.i.d., Sensipar 30 mg, calcitriol 0.5 mg, optic eye drops 3 drops b.i.d., Mometasone solution, amlodipine 10 mg, Lasix 40 mg, calcium 667 mg, folic acid, Nephrocaps Softgel. PAIN CLINIC ASSESSMENT/PQRS: 1. History of osteoarthritis. The patient is not being treated for osteoarthritis. 2. The patient is not being treated for rheumatoid arthritis. 3. Height 5 feet 9 inches, weight 274 pounds, BMI is 40. 4. Vital Signs: Blood pressure 123/74, pulse 98, respiratory rate 16, room air saturation 100%. 5. Pain intensity, 10. 6. Fall risk. The patient has not fallen in the last 3 months. 7. Blood thinner. The patient is not on a blood thinning medication. 8. Hypertension. The patient is being treated for hypertension. 9. Opioid greater than 6 weeks. The patient receives his medications from 1 source, the pain clinic. 10. Risk assessment tool, low [place] [address] PAIN MANAGEMENT CONSULTATION Name: ROSI VALDES Room #: REG [facility] Asim#: [id number] Admission: 06/25/18 ������������������ Attend Phys: Fredy Doss MD Discharge: ������������������ Date of : 66 Report #: [id number] 11. Functional assessment tool, . 12. Recreational drug use. The patient denies use of recreational drugs. 13. Tobacco: The patient is not a smoker at this juncture, has been off cigarettes for about a year. Had a 54-hujs-lipy history. Smoked 2-3 packs of cigarettes per day. 14. Alcohol: The patient denies use of alcoholic beverages. PHYSICAL EXAMINATION: GENERAL: The patient is a well-developed, well-nourished gentleman. He is alert and oriented x 3. Affect is appropriate. Speech is fluent. HEENT: Normocephalic, atraumatic. Extraocular eye muscles intact. Sclerae nonicteric. Mucous membranes are moist. NECK: Without adenopathy. Good range of motion. EXTREMITIES: Upper extremity muscle strength judged to be 5/5 in the major muscle groups. The patient has a dialysis site in his left arm. ABDOMEN: Nontender. MUSCULOSKELETAL: Without scoliosis, kyphosis, or lordosis. The patient has some tingling in his lower portion of his feet. IMPRESSION: 1. Chronic pain involving the low back, left leg, and foot. 2. Renal failure with dialysis 3 times weekly at home. 3. Chronic medical management with opioid medications. RECOMMENDATIONS: We discussed treatment options with the patient. At this juncture, we will continue with his medications. He feels that these medications continue to be helpful. He remains gainfully employed at [employer]. He is doing a good job. A script for his medications has been rewritten. He will continue with the methadone 10 mg 1 p.o. daily, hydrocodone 10/325 as well as continue with Movantik. He will call us if he has any concerns. We would like to thank you for letting us participate in his care. We hope he continues to improve. ��������������������������������������������� ���������������������������������������� By: ��������������������������������������������� 1623 [id number] Fredy Doss MD /CHRISS
[2018-06-25 08:28] VITALS: BP 123/74
--- NOTE | 2018-06-25 08:46 | NUR ---
Pain Clinic Assessment: 1. History of Osteoarthritis: Not Applicable History of Rheumatoid Arthritis: Not Applicable 2. Height: 5 ft. 9 in. 175.3 cm. Weight: 274.4 lb. oz. 124.467 kg. Patient's BMI: 40.5 3. Vital Signs: BP: 123/74 Pulse: 98 Resp: 16 Temp: 02 Sat: 100 ECG Mon: 4. Pain Intensity: 4 5. Fall Risk: Dizziness: N Needs help standing or walking: N Fallen in the last 3 months: N Fall risk comments: 6. Patient on Blood Thinner: None 7. History of Hypertension: Y 8. Opioid Therapy greater than 6 weeks: Y Opiate Contract Signed: 10/20/15 9. Risk Assessment Tool Provided: 0/LOW 10. Functional Assessment Tool: 11. Recreational Drug Use: Never Drug Type: Tobacco Use: Former Smoker Tobacco Type: Amount or Packs/day: How Many Years: Alcohol Use: No Frequency: Quant:
== END ==
LOC: PAIN 07:34
DX: I12.9 Hypertensive chronic kidney disease with stage 1 through stage 4 chronic kidney disease, or unspecified chronic kidney disease (principal); N18.9 Chronic kidney disease, unspecified; M54.5 Low back pain; G89.29 Other chronic pain; M79.605 Pain in left leg; M19.90 Unspecified osteoarthritis, unspecified site; M79.672 Pain in left foot; Z79.899 Other long term (current) drug therapy; Z99.2 Dependence on renal dialysis

== ENCOUNTER → 2018-08-27 | Outpatient (CLI) | payer BC, OTHER ==
[~2018-08-27] VITALS: Ht 175.3 cm; Wt 127.0 kg
[2018-08-27 10:40] VITALS: BP 137/82
--- NOTE | 2018-08-27 10:43 | NUR ---
Pain Clinic Assessment: 1. History of Osteoarthritis: Not Applicable History of Rheumatoid Arthritis: Not Applicable 2. Height: 5 ft. 9 in. 175.3 cm. Weight: 280.0 lb. oz. 127.008 kg. Patient's BMI: 41.3 3. Vital Signs: BP: 137/82 Pulse: 96 Resp: 16 Temp: 02 Sat: 97 ECG Mon: 4. Pain Intensity: 6 5. Fall Risk: Dizziness: N Needs help standing or walking: N Fallen in the last 3 months: N Fall risk comments: 6. Patient on Blood Thinner: None 7. History of Hypertension: Y 8. Opioid Therapy greater than 6 weeks: Y Opiate Contract Signed: 10/20/15 9. Risk Assessment Tool Provided: 0/LOW 10. Functional Assessment Tool: 11. Recreational Drug Use: Never Drug Type: Tobacco Use: Former Smoker Tobacco Type: Amount or Packs/day: How Many Years: Alcohol Use: No Frequency: Quant:
--- NOTE | 2018-08-28 13:31 | HPC ---
[facility] [address] [place] [address] PAIN MANAGEMENT CONSULTATION Name: ROSI VALDES [facility] #[facility] [id number] Admission: 08/27/18 ������������������ Attend Phys: Maribeth Hays Discharge: ������������������ Date of : 66 Report #: [id number] THIS REPORT FOR: //name// CC: Maribeth Hays Roxie Santos DATE OF SERVICE: 08/27/2018 CHIEF COMPLAINT: Chronic bilateral foot pain and low back pain. HISTORY OF PRESENT ILLNESS: This is a very pleasant 47-year-old gentleman who returns to the pain clinic today for refill of his medications that he uses to treat his neuropathy and his low back pain. He tells me that his pain score today is a 6, which is an average score for him. He tells me that his medications are helpful in controlling his low back and left leg pain, which is worse with standing, walking and dialysis. The medications are helpful as well as his seat setting. 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 He said that he finds the medications are very helpful for him after working all day. ALLERGIES: No known drug allergies. MEDICATIONS: Movantik 12.5 mg daily, methadone 10 mg at bedtime and hydrocodone 10/325 b.i.d., carvedilol 6.25 b.i.d., Sensipar 30 mg daily, calcitriol 0.5 mcg daily, amlodipine 10 mg daily, Lasix 40 mg b.i.d., calcium acetate daily, Nephrocaps daily. PQRS: 1. He has a history of osteoarthritis in his lower back. He is not being treated, though currently. He does not take any medicines for rheumatoid arthritis. 2. Height is 5 feet 9 inches, weight is 280, BMI is 41. 3. VITAL SIGNS: 137/82, pulse is 96, respirations 16, oxygen sat 97. 4. Pain score is 6/10. 5. Fall risk. Denies dizziness, does not need help walking or standing and has not fallen in the last 3 months. 6. The patient is not on any blood thinners and he does take medicines for hypertension. 7. Opioid therapy is greater than 6 weeks; therefore, an opioid signed contract is on the chart. 8. Risk assessment tool is low. Functional assessment is . 9. Recreational drug use. He denies. He is a former smoker and does not drink alcohol. We did check the prescription monitoring system. The patient is filling appropriately for his medications. We did check [place] [address] PAIN MANAGEMENT CONSULTATION Name: ROSI VALDES Room #: REG VCIENTE Dailey#: [id number] Admission: 08/27/18 ������������������ Attend Phys: Maribeth Hays Discharge: ������������������ Date of : 66 Report #: [id number] appropriate for his medication that he takes. He tells me he safeguards his medications. PHYSICAL EXAMINATION: GENERAL: This is a well-developed, well-nourished, well-hydrated gentleman who appears his stated age. He is alert and orientated. His affect is appropriate. HEENT: Normocephalic, atraumatic. Extraocular eye muscles are intact. Mucous membranes are moist. NECK: Without adenopathy. Good range of motion. MUSCULOSKELETAL: He has a dialysis shunt in his left upper arm. His upper extremity strength judged to be 5/5 in all major muscle groups. MUSCULOSKELETAL: Without kyphosis, scoliosis or lordosis. Does complain of some tingling in his feet and his lower extremity strength judged to be 5/5 in all major muscle groups. IMPRESSION: 1. Chronic pain involving his lower back, left leg and bilateral feet. 2. Renal failure requiring dialysis 3 times a week at home. 3. Chronic medical management under terms of written opioid agreement. We reviewed the fact that opiate medications are being used to provide analgesia adequate to support activities of daily living, not attempting to achieve a specific pain score on the 0-10 Visual Analog Scale. The current opiate medications are providing sufficient analgesia to allow the patient to participate in activities of daily living. The patient is not exhibiting any aberrant behavior suggestive of drug diversion. The patient is not having any adverse reactions to medications. The patient is not suffering from daytime somnolence or mental acuity changes. The patient is managing opiate-induced constipation with appropriate udgv-moz-wjxomzy agents and dietary considerations. The patient was counseled on concern for caution with operating a motor vehicle while using opiate medications. A physical exam was performed and the patient's functional status was evaluated. All patients with back pain were advised against the bed rest greater than 4 days and were advised to return to normal activities. Pain score assessment was noted and the treatment plan was reviewed with the patient. All current medications, both prescribed and OTC were reviewed and reconciled on the electronic medical record. Tobacco screening was accomplished and smoking cessation was advised when indicated. BMI was noted and diet/exercise modification was recommended for all patients following outside normal parameters. I reviewed with the patient today their responsibilities to safeguard prescription medications, reviewed their responsibility to utilize medications only as prescribed by the physician. They are to seek and receive pain [address] [address] PAIN MANAGEMENT CONSULTATION Name: ROSI VALDES Room #: REG [facility] Dailey#: [id number] Admission: 08/27/18 ������������������ Attend Phys: Maribeth Hays Discharge: ������������������ Date of : 66 Report #: [id number] medications only from 1 physician group ( [facility]). They are to use 1 pharmacy and keep the clinic informed if they change pharmacies. Their responsibilities include making followup visits in a timely fashion and to avoid abrupt discontinuation of medication usage. Their responsibilities further include bringing their medications (bottles from the pharmacy with residual pills) to the visit for possible confirmation of pill counts and the patient understands it is their responsibility to submit to random drug screens to ensure both that the medications prescribed are present, and that no other controlled substances are present. All prescriptions provided today were generated electronically. PLAN: 1. We discussed treatment options with this patient today. The patient tells me that he is having problems with his constipation. He does take Movantik a renal dose on a daily basis, which we refilled today. We encouraged the patient to try MiraLax or Senokot as well. The patient tells me he will try those. He is afraid that some of his dialysis medicines may cause him to have some constipation as well as his narcotics. 2. Refills of methadone 10 mg tablets, quantity 30 for release today and 4-week as well as hydrocodone #60 of 10/325 for release today and 4 weeks. 3. The patient will be followed up in 2 months' time. At that time, he will see myself again. The patient's care given today in collaboration with Dr. Ortiz Doss who did see the patient as well today. ��������������������������������������������� <ELECTRONICALLY SIGNED> ���������������������������������������� By: Maribeth Hays ��������������������������������������������� 08/28/18 1331 [id number] Maribeth Hays /nt
== END ==
LOC: PAIN 07:11
DX: G89.29 Other chronic pain (principal); M54.5 Low back pain; M79.604 Pain in right leg; M79.605 Pain in left leg; N18.6 End stage renal disease; Z99.2 Dependence on renal dialysis; Z79.891 Long term (current) use of opiate analgesic; Z79.899 Other long term (current) drug therapy

== ENCOUNTER → 2018-12-24 | Outpatient (CLI) | payer BC ==
[~2018-12-24] VITALS: Ht 175.3 cm; Wt 130.1 kg
--- NOTE | ~2018-12-24 | HPC ---
[facility] [place] [address] PAIN MANAGEMENT CONSULTATION Name: LUCIOROSI DELFINA Room #: [facility] [id number] Admission: 12/24/18 Attend Phys: Fredy Doss MD Discharge: Date of : 66 Report #: [id number] THIS REPORT FOR: //name// CC: Fredy Santos DATE OF SERVICE: 12/24/2018 CHIEF COMPLAINT: Here for medicine renewal, still have some pain in my foot." HISTORY: The patient is a 48-year-old gentleman who has been followed in the pain clinic because of chronic pain. Does have some pain and discomfort in his foot on the left side. States that there is some discomfort on the top of the foot. This has been problematic for some time. He did have a blood clot which developed in that area and was removed. He continues to undergo hemodialysis at home. Feels that things are going reasonably well. He follows up with his renal doctors. States that he has taken a specimen of blood and pre and post-dialysis to his physician for evaluation. He continues to work. He does not have any problems with his job at [employer]. Feels that the medications continue to be quite beneficial. He is able to think clearly. He is not having any problems with his sensorium. Rates his pain today as an 8/10. ALLERGIES: No known drug allergies. CURRENT MEDICATIONS: Movantik 12.5 mg p.r.n., methadone 10 mg at bedtime, hydrocodone 10/325 mg b.i.d., carvedilol 6.25 mg b.i.d., amlodipine 10 mg daily, Lasix 40 mg b.i.d., calcium 667 daily, Nephrocaps daily, cinacalcet. PAIN CLINIC ASSESSMENT AND PQRS: 1. History of osteoarthritis. The patient has some osteoarthritic complaints in the lower spine. He is not being treated for rheumatoid arthritis. Does have some pain in the dorsum of his left foot. 2. Height 5 feet 9 inches, weight 286 pounds, BMI is 42.3. 3. Vital Signs: Blood pressure 108/69, pulse 77, respiratory rate 16, room air saturation 96%. 4. Pain intensity 8/10. 5. Fall history: The patient has not fallen in the last 3 months. 6. Blood thinner. The patient is not on a blood thinning medication. 7. Hypertension. The patient is being treated for hypertension. 8. Opioids greater than 6 weeks. The patient receives medication from one source the pain clinic. 9. Risk assessment tool, low for opioid use. 10. Functional assessment tool . 11. Recreational drug use. The patient denies. 12. Tobacco: The patient is a former smoker. 13. Alcohol. The patient denies use of alcoholic beverages. [address] [address] PAIN MANAGEMENT CONSULTATION Name: ROSI VALDES Room #: REG [facility]#: [id number] Admission: 12/24/18 Attend Phys: Fredy Doss MD Discharge: Date of : 66 Report #: [id number] PHYSICAL EXAMINATION: GENERAL: The patient is a well-developed, well-nourished gentleman. Appears his stated age. He is alert and oriented x 3. His affect is appropriate. Speech is fluent. HEENT: Normocephalic, atraumatic. Extraocular eye muscles intact. Sclerae nonicteric. Mucous membranes are moist. NECK: Without adenopathy or JVD. LUNGS: Clear to auscultation. HEART: Regular rate. MUSCULOSKELETAL: The patient without significant scoliosis, kyphosis or lordosis. Has a dialysis shunt in his upper left arm. There is a thrill. The patient is without kyphosis, lordosis, or scoliosis. Upper extremity muscle strength judged to be 5/5 for the major muscle groups in the upper extremity. Does have tingling sensation in his feet bilaterally. IMPRESSION: 1. Chronic pain involving the low back, left leg pain on the dorsum, status post thrombectomy some years ago. 2. Renal failure requiring dialysis at home. 3. Chronic ongoing medical management with opioid medications. RECOMMENDATIONS: We discussed treatment options with the patient. Risks and benefits of the opioid medications were discussed. The patient feels that these medications are helpful. He does not have any problems with mentation. He finds that these medications continue to be beneficial. He continues to work at [employer]. He keeps his medications in a guarded area. He is aware that opioid medications can become less effective as time goes on, secondary to development of tolerance. He has returned today with a hope of renewing his medications. He has not shown any signs of addiction. He has taken her medications as prescribed. A script for his medications has been rewritten. He will continue with methadone 10 mg 1 p.o. daily and hydrocodone 10/325 one p.o. b.i.d. as needed. The patient will use Movantik to helped with Opioid-induced constipation. We would like to thank you for help for letting us participate in his care. We hope he continues to improve. By: [id number] [id number] Fredy Doss MD /PMT
[2018-12-24 10:48] VITALS: BP 108/63
--- NOTE | 2018-12-24 10:56 | NUR ---
Pain Clinic Assessment: 1. History of Osteoarthritis: Not Applicable History of Rheumatoid Arthritis: Not Applicable 2. Height: 5 ft. 9 in. 175.3 cm. Weight: 286.8 lb. oz. 130.092 kg. Patient's BMI: 42.3 3. Vital Signs: BP: 108/63 Pulse: 77 Resp: 16 Temp: 02 Sat: 96 ECG Mon: 4. Pain Intensity: 8 5. Fall Risk: Dizziness: N Needs help standing or walking: N Fallen in the last 3 months: N Fall risk comments: 6. Patient on Blood Thinner: None 7. History of Hypertension: Y 8. Opioid Therapy greater than 6 weeks: Y Opiate Contract Signed: 10/20/15 9. Risk Assessment Tool Provided: 0/LOW 10. Functional Assessment Tool: 11. Recreational Drug Use: Never Drug Type: Tobacco Use: Former Smoker Tobacco Type: Amount or Packs/day: How Many Years: Alcohol Use: No Frequency: Quant:
== END ==
LOC: PAIN 09:27
DX: M79.673 Pain in unspecified foot (principal); M54.5 Low back pain; Z79.891 Long term (current) use of opiate analgesic; N19 Unspecified kidney failure; Z99.2 Dependence on renal dialysis; Z88.8 Allergy status to other drugs, medicaments and biological substances; Z79.899 Other long term (current) drug therapy

== ENCOUNTER → 2019-02-25 | Outpatient (CLI) | payer BC ==
[~2019-02-25] VITALS: Ht 175.3 cm; Wt 132.5 kg
[~2019-02-25] MED LIST changes: +PREDNISONE 20 M20 MG PO; +PROAIR HFA8.5 GM INH
[2019-02-25 10:01] VITALS: BP 123/77
--- NOTE | 2019-02-25 10:07 | NUR ---
Pain Clinic Assessment: 1. History of Osteoarthritis: LEFT HAND History of Rheumatoid Arthritis: DENIES 2. Height: 5 ft. 9 in. 175.3 cm. Weight: 292.0 lb. oz. 132.451 kg. Patient's BMI: 43.1 3. Vital Signs: BP: 123/77 Pulse: 76 Resp: 16 Temp: 02 Sat: 95 ECG Mon: 4. Pain Intensity: 5-6 5. Fall Risk: Dizziness: N Needs help standing or walking: N Fallen in the last 3 months: N Fall risk comments: 6. Patient on Blood Thinner: None 7. History of Hypertension: Y 8. Opioid Therapy greater than 6 weeks: Y Opiate Contract Signed: 10/20/15 9. Risk Assessment Tool Provided: 0/LOW 10. Functional Assessment Tool: 11. Recreational Drug Use: Never Drug Type: Tobacco Use: Former Smoker Tobacco Type: Amount or Packs/day: How Many Years: Alcohol Use: No Frequency: Quant:
--- NOTE | 2019-02-26 08:33 | HPC ---
[facility] [place] [address] PAIN MANAGEMENT CONSULTATION Name: LUCIOROSI DELFINA [id number] Admission: 02/25/19 Attend Phys: Maribeth Hays Discharge: Date of : 66 Report #: [id number] THIS REPORT FOR: //name// CC: Maribeth Santos MD DATE OF SERVICE: 02/25/2019 CHIEF COMPLAINT: Low back pain, bilateral leg pain. HISTORY OF PRESENT ILLNESS: This is a very pleasant 48-year-old gentleman who returns to the pain clinic today for refill of his medications that he uses to help treat his ongoing low back pain as well as his bilateral leg pain and neuropathy. He reports a pain score today at 5/6. He tells me that his low back pain is slowly getting worse. He is thinking about having another epidural steroid injection, which he has had in the past that he thought was very beneficial along with his medications. He feels that when he is at work at [employer] and walking, standing a lot, that his back pain is not being relieved as well with his current medication. The patient is also on dialysis 3 times a week and he takes hemodialysis at home and knows he would have to adjust his heparin dose in time to enable him to have an epidural. He is hopeful to have this fairly soon to see if it is as beneficial as it had been in the past, when Dr. Pio Johnson had given them to him. He is here today for refills and to discuss this. ALLERGIES: No known drug allergies. CURRENT LIST OF MEDICATIONS Movantik 12.5 mg p.r.n., methadone 10 mg at bedtime, hydrocodone 10/325 b.i.d. p.r.n., carvedilol 6.25 mg b.i.d., Citracal 0.5 mg daily, amlodipine 10 mg daily, Lasix 40 mg b.i.d., calcium 667 mg daily and Nephrocaps daily. PQRS: 1. He has osteoarthritis in his lower spine and his hands. He is not being treated for rheumatoid arthritis. 2. Height is 5 feet 9 inches, weight is 292, BMI is 43. 3. Vital signs, 123/77, pulse is 76, respirations 16, oxygen sat is 95. 4. Pain score is 5-6. 5. Denies dizziness, does not need help walking or standing, has not fallen in the last 3 months. 6. The patient is on heparin through his dialysis. He does also take medicine for hypertension. 7. Opioid therapy is greater than 6 weeks; therefore, an opioid signed contract is on the chart. His risk assessment tool is low[place] [address] PAIN MANAGEMENT CONSULTATION Name: ROSI VALDES Room #: REG CLCaroline Dailey#: [id number] Admission: 02/25/19 Attend Phys: Maribeth Hays Discharge: Date of : 66 Report #: [id number] 3/7. 8. Recreational drug use, he denies. He is a former smoker and does not drink alcohol. According to the prescription monitoring system, the patient is filling appropriately for his medications. He is due this week and to fill this medicine again. There is a recent drug screen on the chart as well. PHYSICAL EXAMINATION: GENERAL: This is a well-developed, well-nourished male who appears his stated age, placing his current pain score today at 5/10. HEENT: Normocephalic, atraumatic. Extraocular eye muscles are intact. Mucous membranes are moist. Sclerae are non-intrinsic. NECK: Without adenopathy or JVD. MUSCULOSKELETAL: He is without significant scoliosis, kyphosis or lordosis. He has a dialysis shunt in his left upper arm, positive for a thrill. His upper extremity strength judged to be 5/5 in all major muscle groups. He has tenderness across his lumbosacral region. It does radiate into his left leg greater than the right following the L4-L5 dermatomal distribution. He also has numbness and tingling in his bilateral feet. He walks with a slightly antalgic gait. IMPRESSION: 1. Chronic pain involving his lumbar spine. 2. Lumbar radiculopathy following the L4-L5, L5-S1 dermatomal distribution. 3. Chronic renal failure requiring home hemodialysis. 4. Opioid-induced constipation, on Movantik. 5. Chronic medication management under terms of written opioid agreement. We reviewed the fact that opiate medications are being used to provide analgesia adequate to support activities of daily living, not attempting to achieve a specific pain score on the 0-10 Visual Analog Scale. The current opiate medications are providing sufficient analgesia to allow the patient to participate in activities of daily living. The patient is not exhibiting any aberrant behavior suggestive of drug diversion. The patient is not having any adverse reactions to medications. The patient is not suffering from daytime somnolence or mental acuity changes. The patient is managing opiate-induced constipation with appropriate [id number] agents and dietary considerations. The patient was counseled on concern for caution with operating a motor vehicle while using opiate medications. A physical exam was performed and the patient's functional status was evaluated. All patients with back pain were advised against the bed rest greater than 4 days and were advised to return to normal activities. Pain score assessment was noted and the treatment plan was reviewed with the patient. All current medications, both prescribed and OTC were reviewed and reconciled on the [facility] [address] [place] [address] PAIN MANAGEMENT CONSULTATION Name: LUCIOROSI MATHIS Room #: REG [facility].#: [id number] Admission: 02/25/19 Attend Phys: Maribeth Hays Discharge: Date of : 66 Report #: [id number] electronic medical record. Tobacco screening was accomplished and smoking cessation was advised when indicated. BMI was noted and diet/exercise modification was recommended for all patients following outside normal parameters. I reviewed with the patient today their responsibilities to safeguard prescription medications, reviewed their responsibility to utilize medications only as prescribed by the physician. They are to seek and receive pain medications only from 1 physician group ( [facility]). They are to use 1 pharmacy and keep the clinic informed if they change pharmacies. Their responsibilities include making followup visits in a timely fashion and to avoid abrupt discontinuation of medication usage. Their responsibilities further include bringing their medications (bottles from the pharmacy with residual pills) to the visit for possible confirmation of pill counts and the patient understands it is their responsibility to submit to random drug screens to ensure both that the medications prescribed are present, and that no other controlled substances are present. All prescriptions provided today were generated electronically. PLAN: 1. We discussed treatment options with the patient today. He finds that his medications are not as effective as they used to be with increasing low back pain, was wondering about an epidural steroid injection. Per our records, the last epidural was in [address] Pio Johnson. I encouraged him that we would be able to perform that epidural as long as he has varied his heparin dose for his dialysis. We discussed that the patient will take his dialysis on Saturday morning and then come to see us early Saturday afternoon for his epidural. We will schedule an appointment for next week with Dr. Ortiz Doss for his lumbar radiculopathy. 2. Scripts given today for his methadone 10 mg, #30, for today and 4-week release and hydrocodone 10/325 b.i.d., #60. Scripts given for today and 4-week release. This does place the patient at 50 morphine mEq according to the CDC guidelines. 3. The patient does suffer from opioid-induced constipation, but he is not needing a prescription from us today, which we had written for in the past since his primary care doctor has taken over writing that medication. 4. The patient is seen today in collaboration with Dr. Ortiz Doss who did see the patient as well. <ELECTRONICALLY SIGNED> By: Maribeth Hays 02/26/19 0833 1055 0042 Maribeth Hays /clara
== END ==
LOC: PAIN 07:00
DX: Z76.0 Encounter for issue of repeat prescription (principal); M54.16 Radiculopathy, lumbar region; G89.29 Other chronic pain; M79.661 Pain in right lower leg; I13.11 Hypertensive heart and chronic kidney disease without heart failure, with stage 5 chronic kidney disease, or end stage renal disease; N18.6 End stage renal disease; Z99.2 Dependence on renal dialysis; Z79.899 Other long term (current) drug therapy; Z79.891 Long term (current) use of opiate analgesic

== ENCOUNTER → 2019-03-04 | Outpatient (CLI) | payer BC ==
[~2019-03-04] VITALS: Ht 175.3 cm; Wt 130.5 kg
[2019-03-04 10:35] VITALS: BP 111/66
--- NOTE | 2019-03-04 10:54 | NUR ---
Pain Clinic Assessment: 1. History of Osteoarthritis: LEFT HAND History of Rheumatoid Arthritis: DENIES 2. Height: 5 ft. 9 in. 175.3 cm. Weight: 287.6 lb. oz. 130.455 kg. Patient's BMI: 42.5 3. Vital Signs: BP: 111/66 Pulse: 78 Resp: 16 Temp: 02 Sat: 98 ECG Mon: 4. Pain Intensity: 7 5. Fall Risk: Dizziness: N Needs help standing or walking: N Fallen in the last 3 months: N Fall risk comments: 6. Patient on Blood Thinner: None 7. History of Hypertension: Y 8. Opioid Therapy greater than 6 weeks: Y Opiate Contract Signed: 10/20/15 9. Risk Assessment Tool Provided: 0/LOW 10. Functional Assessment Tool: 11. Recreational Drug Use: Never Drug Type: Tobacco Use: Former Smoker Tobacco Type: Amount or Packs/day: How Many Years: Alcohol Use: No Frequency: Quant:
== END | disposition home or self-care (01) ==
LOC: PAIN 06:59
DX: M54.5 Low back pain (principal); Z87.891 Personal history of nicotine dependence; Z79.899 Other long term (current) drug therapy

== ENCOUNTER 2019-03-14 00:27 | Emergency (ER) | payer BC ==
[~2019-03-14] VITALS: Ht 175.3 cm; Wt 129.3 kg
[~2019-03-14 00:27] MED LIST changes: -PREDNISONE 20 M20 MG PO; -PROAIR HFA8.5 GM INH
[2019-03-14 01:25] LABS: HEMATOCRIT 32.4 % (42.0-52.0); HEMOGLOBIN 10.6 gm/dL (14.0-18.0); MCH 31.6 pg (26.0-34.0); MCHC 32.8 g/dL (28.0-37.0); MCV 96.3 fL (80.0-100.0); PLATELET COUNT 230 thou/uL (150-400); RBC 3.36 mil/uL (4.50-6.00); RDW 16.9 % (10.5-14.5); WBC 12.1 thou/uL (4.0-11.0)
[2019-03-14 01:27] LABS: ANION GAP 12 mmol/L (7-16); BUN 62 mg/dL (7-18); CALCIUM 9.4 mg/dL (8.5-10.1); CHLORIDE 97 mmol/L (98-107); CO2 29 mmol/L (21-32); CREATININE 9.5 mg/dL (0.7-1.3); GLUCOSE 131 mg/dL (74-106); POTASSIUM 4.3 mmol/L (3.5-5.1); SODIUM 138 mmol/L (136-145)
[2019-03-14 01:36] LABS: TROPONIN-I <0.06 ng/mL (<0.06)
[2019-03-14 02:46] LABS: ABSOLUTE NEUTROPHILS 8.1 thou/uL (1.4-8.2); ANISOCYTOSIS 1+; ATYPICAL LYMPHS 3 %; METAMYELOCYTES 1 %; MYELOCYTES 1 %; PROMYELOCYTES 1 %
[2019-03-14] MEDS ORDERED: PROAIR HFA8.5 GM INH (03:03)
[2019-03-14] MEDS ORDERED: PREDNISONE 20 M20 MG PO (03:03)
[2019-03-14 03:37] VITALS: BP 162/98
--- NOTE | 2019-03-15 13:12 | EKG ---
[place] [address] [facility] [employer] [place] [address] ELECTROCARDIOGRAM REPORT Name: ROSI VALDES Room #: DEP [facility] [id number] Admission: 03/14/19 Attend Phys: Discharge: 03/14/19 Date of : 66 Report #: [id number] THIS REPORT FOR: //name// 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 : 1970 Requested By: Christiano Martínez Order Number: [id number] MD: Gary Johnston Measurements Intervals Leonard Rate: 87 P: 15 HI: 148 QRS: -31 QRSD: 108 T: 39 QT: 365 QTc: 439 Interpretive Statements Sinus rhythm Left axis deviation Abnormal R-wave progression, late transition Compared to ECG 11/07/2017 11:59:55 Left-axis deviation now present Electronically Signed On 03-15-2019 13:12:03 [employer]ER by Gary Johnston [email or web address] <ELECTRONICALLY SIGNED> By: Gary Johnston MD, [facility] 03/15/19 1312 004 004 Gary Johnston MD, FACC /EPI
== END 2019-03-14 03:38 | disposition home or self-care (01) ==
LOC: ER 00:27
PROVIDERS: Emergency Medicine
DX: R05 Cough (principal); J44.9 Chronic obstructive pulmonary disease, unspecified; I12.0 Hypertensive chronic kidney disease with stage 5 chronic kidney disease or end stage renal disease; E11.22 Type 2 diabetes mellitus with diabetic chronic kidney disease; N18.6 End stage renal disease; F17.210 Nicotine dependence, cigarettes, uncomplicated; Z99.2 Dependence on renal dialysis

== ENCOUNTER → 2019-04-24 | Outpatient (CLI) | payer BC ==
[~2019-04-24] VITALS: Ht 175.3 cm; Wt 131.5 kg
[~2019-04-24] MED LIST changes: +PREDNISONE 20 M20 MG PO; +PROAIR HFA8.5 GM INH
[2019-04-24 09:41] VITALS: BP 117/51
--- NOTE | 2019-04-24 09:47 | NUR ---
Pain Clinic Assessment: 1. History of Osteoarthritis: LEFT HAND History of Rheumatoid Arthritis: DENIES 2. Height: 5 ft. 9 in. 175.3 cm. Weight: 290.0 lb. oz. 131.544 kg. Patient's BMI: 42.8 3. Vital Signs: BP: 117/51 Pulse: 80 Resp: 18 Temp: 02 Sat: 98 ECG Mon: 4. Pain Intensity: 5 5. Fall Risk: Dizziness: N Needs help standing or walking: N Fallen in the last 3 months: N Fall risk comments: 6. Patient on Blood Thinner: None 7. History of Hypertension: Y 8. Opioid Therapy greater than 6 weeks: Y Opiate Contract Signed: 10/20/15 9. Risk Assessment Tool Provided: 0/LOW 10. Functional Assessment Tool: 11. Recreational Drug Use: Never Drug Type: Tobacco Use: Former Smoker Tobacco Type: Amount or Packs/day: How Many Years: Alcohol Use: No Frequency: Quant:
--- NOTE | 2019-04-28 14:24 | HPC ---
[facility] [place] [address] PAIN MANAGEMENT CONSULTATION Name: ROSI VALDES Room #: REG VICENTE Asim#: [id number] Admission: 04/24/19 Attend Phys: Fredy Doss MD Discharge: Date of : 66 Report #: [id number] THIS REPORT FOR: //name// CC: Fredy Santos DATE OF SERVICE: 04/24/2019 CHIEF COMPLAINT: Continued low back pain and I am still doing dialysis. HISTORY: The patient is a 48-year-old gentleman who has been followed in the pain clinic. Suffers from renal failure. Because of his renal failure, he has been on dialysis. He does do home dialysis with hemodialysis. Overall, things have been going reasonably well. He did go to the Emergency Room because of some shortness of breath. Things turned around reasonably well. At this point, he continues to work at [employer]. They have negotiated their contracted. He feels that things are going relatively well and would like to continue with his current medications. He feels that they are working and helpful. He does have pain in the low back area. Pain radiates down into his left leg. He does have some pain and discomfort in the bottom of his feet. There is a pin and needle sensation with tingling in this area. Rates his pain as a 5/10. Walking, standing and dialysis can exacerbate his discomfort. Notes that use of his medication is helpful as well as epidural steroid injections have been beneficial. He has returned today with the hopes of having his medications renewed. ALLERGIES: No known drug allergies. CURRENT MEDICATIONS: Movantik 12.5 mg p.r.n., methadone 10 mg at bedtime, hydrocodone 10/325 b.i.d., carvedilol 6.25 mg b.i.d., Citracal 0.5 mg daily, amlodipine 10 mg daily, Lasix 40 mg b.i.d., calcium 667 mg, Nephrocaps daily. PAIN CLINIC ASSESSMENT AND PQRS: 1. The patient has some osteoarthritic changes in the lower portion of his spine as well as in his hands. He is not being treated for rheumatoid arthritis. 2. Height 5 feet 9 inches, weight 290 pounds, BMI is 42.8. 3. Vital Signs: Blood pressure 112/57, pulse 80, respiratory rate 18, room air saturation 98%. 4. Pain intensity 5-6/10. 5. Fall history: The patient has not fallen in the last 3 months. 6. Blood thinner. The patient is not on a blood thinning medication. 7. Hypertension. The patient is being treated for hypertension. 8. Opioids greater than 6 weeks. The patient received medication from one source, pain clinic. 9. Risk assessment tool, low for opioid use. [address] [address] PAIN MANAGEMENT CONSULTATION Name: ROSI VALDES Room #: REG [facility]abelle#: [id number] Admission: 04/24/19 Attend Phys: Fredy Doss MD Discharge: Date of : 66 Report #: [id number] 10. Functional assessment tool. . 11. Recreational drug use: The patient denies. 12. Tobacco: The patient has not smoked for 2 years. 13. Alcohol. The patient denies use of alcoholic beverages. PHYSICAL EXAMINATION: GENERAL: The patient is a well-developed, well-nourished gentleman. He is alert and oriented. His affect is appropriate. Speech is fluent. HEENT: Normocephalic, atraumatic. Extraocular eye muscles intact. Sclerae nonicteric. Mucous membranes are moist. NECK: Without adenopathy or JVD. HEART: Regular. ABDOMEN: Nontender. MUSCULOSKELETAL: Without significant scoliosis, kyphosis or lordosis. The patient does have some pain in the low back area. He has a shunt with a significant thrill and a shunt diameter about 1 inch in his left upper arm. Muscle strength is judged to be 5/5 for the major muscle groups in the upper extremity. The patient has some pain and discomfort in the lower portion of his back. It does cause him to walk with a slight antalgic gait. Pain involves the L5-S1 dermatomal distribution. IMPRESSION: 1. Lumbar radiculopathy with L5-S1 area. 2. Chronic pain involving the lumbar spine. 3. Chronic renal failure requiring hemodialysis. 4. Opioid-induced constipation, treated with Movantik. 5. Chronic pain treated with opioid medications. RECOMMENDATIONS: We discussed treatment options with the patient. At this juncture, he feels his medications are helpful. He remains gainfully employed at [employer]. He was phillip that they did not have to go out on strike. He feels that they have gotten a reasonable contract. He feels his medications are helpful. He would like to continue with his medications. He is aware that opioid medications over a period of time can become less effective. He is aware that some patients have developed problems and developed addiction to opioid medications. He has taken his medication as prescribed. He does not feel that he is addicted. He keeps his medications in a guarded area. He will continue with the medications. A script and renewal of his medications has been provided. He will continue with hydrocodone 10/325 one p.o. b.i.d., script for methadone 10 mg 1 p.o. at bedtime. Amitriptyline 75 mg at bedtime, Neurontin 300 mg t.i.d. and tizanidine have also been provided. He will call us if he has any concerns. [facility] [address] [place] [address] PAIN MANAGEMENT CONSULTATION Name: ROSI VALDES Room #: REG [facility]ENTER[facility]#: [id number] Admission: 04/24/19 Attend Phys: Fredy Doss MD Discharge: Date of : 66 Report #: [id number] We would like to thank you for letting us participate in his care. We hope he continues to improve. <ELECTRONICALLY SIGNED> By: Fredy Doss MD 04/28/19 1424 0134 1201 Fredy Doss MD /nt
== END ==
LOC: PAIN 06:42
DX: M54.16 Radiculopathy, lumbar region (principal); G89.29 Other chronic pain; N18.6 End stage renal disease; K59.03 Drug induced constipation; T40.2X5A Adverse effect of other opioids, initial encounter; Y92.89 Other specified places as the place of occurrence of the external cause

== ENCOUNTER → 2019-06-24 | Outpatient (CLI) | payer BC ==
[~2019-06-24] VITALS: Ht 175.3 cm; Wt 131.6 kg
[~2019-06-24] MED LIST changes: +OXYCODON-ACETA1 EAC1 PO
[2019-06-24 08:13] VITALS: BP 139/97
--- NOTE | 2019-06-24 08:22 | NUR ---
Pain Clinic Assessment: 1. History of Osteoarthritis: LEFT HAND History of Rheumatoid Arthritis: DENIES 2. Height: 5 ft. 9 in. 175.3 cm. Weight: 290.2 lb. oz. 131.634 kg. Patient's BMI: 42.8 3. Vital Signs: BP: 139/97 Pulse: 82 Resp: 20 Temp: 02 Sat: 98 ECG Mon: 4. Pain Intensity: 4 5. Fall Risk: Dizziness: N Needs help standing or walking: N Fallen in the last 3 months: N Fall risk comments: 6. Patient on Blood Thinner: None 7. History of Hypertension: Y 8. Opioid Therapy greater than 6 weeks: Y Opiate Contract Signed: 10/20/15 9. Risk Assessment Tool Provided: 0/LOW 10. Functional Assessment Tool: 11. Recreational Drug Use: Never Drug Type: Tobacco Use: Former Smoker Tobacco Type: Amount or Packs/day: How Many Years: Alcohol Use: No Frequency: Quant:
--- NOTE | 2019-06-24 08:22 | NUR ---
ALERT - Celestino Score <= 18: Add Problem PRESSURE ULCER RISK to Patient's Care Plan
--- NOTE | 2019-06-25 13:15 | HPC ---
[facility] [address] [place] [address] PAIN MANAGEMENT CONSULTATION Name: ROSI VALDES Room #: REG VICENTE JagdishJagdish#: [id number] Admission: 06/24/19 Attend Phys: Maribeth Hays Discharge: Date of : 66 Report #: [id number] THIS REPORT FOR: cc: Roxie Santos MD, Nora P. MD Hocker,Maribeth SWANN ~ DATE OF SERVICE: 06/24/2019 CHIEF COMPLAINT: Low back pain, left leg pain. HISTORY OF PRESENT ILLNESS: This is a very pleasant 48-year-old gentleman who returns to the pain clinic today for a refill of his medications and to discuss possible opioid rotation. He reports his pain is a 4/10 in his lower back, left lower leg and foot. He feels as pins and needles in his foot as well as aching pain in his lower back. He feels these are worse when he is walking and standing or especially after dialysis. His lower back hurts from him sitting so long. He feels his medications are beneficial, though in the past he has had an opiate rotation every so many years rotating from hydrocodone to oxycodone and then back to hydrocodone. He is wondering about a rotation at this time. ALLERGIES: No known drug allergies. CURRENT LIST OF MEDICATIONS: Movantik 12.5 mg, methadone 10 mg daily, hydrocodone 10/325 b.i.d., carvedilol, Sensipar, calcitriol, amlodipine, Lasix, calcium acetate and Nephrocaps. PQRS: 1. He has arthritic changes in his spine and hands. He denies any rheumatoid arthritis. 2. Height is 5 feet 9 inches, weight is 290, BMI is 42. 3. Vital signs 139/97, pulse is 82, respirations 20, oxygen sat is 98. 4. Pain score is 4/10. 5. Denies dizziness, does not need help walking or standing, has not fallen in the last 3 months. 6. The patient is not on any blood thinners, but does take medicine for hypertension. 7. Opiate therapy is greater than 6 weeks; therefore, an opioid signed contract is on the chart. Risk assessment tool is low. Functional assessment is . 8. Recreational drug use, he denies. He is a former smoker and does not drink alcohol. According to the prescription monitoring system, the patient is filling appropriately. He is due to fill his medications this weekend. His morphine mEq per day is 50 MME according to the CDC guidelines. There is a recent drug screen on the chart that is appropriate as well. We will recheck one at his [address] [address] PAIN MANAGEMENT CONSULTATION Name: ROSI VALDES Room #: REG VICENTE Dailey#: [id number] Admission: 06/24/19 Attend Phys: Maribeth Hays Discharge: Date of : 66 Report #: [id number] next visit. PHYSICAL EXAMINATION: GENERAL: This is alert and orientated, well-nourished gentleman who appears his stated age, placing his current pain score at 4/10. HEENT: Normocephalic, atraumatic. Extraocular eye muscles are intact. Mucous membranes are moist. NECK: Without adenopathy or JVD. MUSCULOSKELETAL: He is without significant scoliosis, kyphosis or lordosis. Pain in his lumbosacral region that radiates into his left lower extremity and foot involves the L5-S1 dermatomal distribution. He has a slightly antalgic gait. He has a shunt in his left upper arm. His lower extremity strength judged to be 5/5 in all major muscle groups. IMPRESSION: 1. Lumbar radiculopathy in the L5-S1 area. 2. Chronic pain involving the lumbar spine. 3. Chronic renal failure requiring hemodialysis at home. 4. Opioid-induced constipation, using Movantik. 5. Chronic pain medications under written opioid agreement. We reviewed the fact that opiate medications are being used to provide analgesia adequate to support activities of daily living, not attempting to achieve a specific pain score on the 0-10 Visual Analog Scale. The current opiate medications are providing sufficient analgesia to allow the patient to participate in activities of daily living. The patient is not exhibiting any aberrant behavior suggestive of drug diversion. The patient is not having any adverse reactions to medications. The patient is not suffering from daytime somnolence or mental acuity changes. The patient is managing opiate-induced constipation with appropriate hlpq-eiu-jmbtupt agents and dietary considerations. The patient was counseled on concern for caution with operating a motor vehicle while using opiate medications. A physical exam was performed and the patient's functional status was evaluated. All patients with back pain were advised against the bed rest greater than 4 days and were advised to return to normal activities. Pain score assessment was noted and the treatment plan was reviewed with the patient. All current medications, both prescribed and OTC were reviewed and reconciled on the electronic medical record. Tobacco screening was accomplished and smoking cessation was advised when indicated. BMI was noted and diet/exercise modification was recommended for all patients following outside normal parameters. I reviewed with the patient today their responsibilities to safeguard prescription medications, reviewed their responsibility to utilize medications only as prescribed by the physician. They are to seek and receive pain [address] [address] PAIN MANAGEMENT CONSULTATION Name: ROSI VALDES Room #: REG [facility]#: [id number] Admission: 06/24/19 Attend Phys: Maribeth HUE Hays Discharge: Date of : 66 Report #: [id number] medications only from 1 physician group ( [facility]). They are to use 1 pharmacy and keep the clinic informed if they change pharmacies. Their responsibilities include making followup visits in a timely fashion and to avoid abrupt discontinuation of medication usage. Their responsibilities further include bringing their medications (bottles from the pharmacy with residual pills) to the visit for possible confirmation of pill counts and the patient understands it is their responsibility to submit to random drug screens to ensure both that the medications prescribed are present, and that no other controlled substances are present. All prescriptions provided today were generated electronically. PLAN: 1. We discussed treatment options with the patient today. The patient is requesting an opioid rotation from hydrocodone back to oxycodone. He has done this in the past and finds this beneficial in controlling some of his pain. He feels that he gets used to his medications and would like to rotate from hydrocodone 10/325 to oxycodone 10/325. I explained to him that we have to look at the morphine mEq and that would be too high of a conversion placing him significantly over his limit of 50 MMEs. In the past, he has been given oxycodone 5/325 three tablets a day. The patient is not wanting to take 3 pills a day due to his dialysis and work schedule. We decided to rotate him to oxycodone 7.5/325. This will raise his morphine milliequivalents per day by 2. Scripts were written by Dr. Darwin Doss for 60 pills for today and 4-week release as well as his methadone 10 mg, #30. The patient takes these before bedtime and finds them very beneficial. 2. The patient continues to have problems with his opioid-induced constipation and finds the Movantik very beneficial. He does not require it every day, but is in need of a refill today. I will send those electronically to his pharmacy for 12.5 mg dosing 1 tablet a day, #30 with one additional refill. 3. The patient will return in 2 months. The patient is seen today in collaboration with Dr. Ortiz Doss. <ELECTRONICALLY SIGNED> By: Maribeth Hays 06/25/19 1315 [id number] [id number] Maribeth Hays /nt
== END ==
LOC: PAIN 06:41
DX: M54.16 Radiculopathy, lumbar region (principal); N18.6 End stage renal disease; K59.03 Drug induced constipation; T40.2X5A Adverse effect of other opioids, initial encounter; Z79.891 Long term (current) use of opiate analgesic; Y92.89 Other specified places as the place of occurrence of the external cause

== ENCOUNTER → 2019-08-26 | Outpatient (CLI) | payer BC ==
[~2019-08-26] VITALS: Ht 175.3 cm; Wt 132.6 kg
[~2019-08-26] MED LIST changes: +HYDROCODON-ACE1 EAC5 PO
[2019-08-26 08:39] VITALS: BP 117/87
--- NOTE | 2019-08-26 08:49 | NUR ---
Pain Clinic Assessment: 1. History of Osteoarthritis: LEFT HAND History of Rheumatoid Arthritis: DENIES 2. Height: 5 ft. 9 in. 175.3 cm. Weight: 292.4 lb. oz. 132.632 kg. Patient's BMI: 43.2 3. Vital Signs: BP: 117/87 Pulse: 94 Resp: 16 Temp: 02 Sat: 97 ECG Mon: 4. Pain Intensity: 5 5. Fall Risk: Dizziness: N Needs help standing or walking: N Fallen in the last 3 months: N Fall risk comments: 6. Patient on Blood Thinner: None 7. History of Hypertension: Y 8. Opioid Therapy greater than 6 weeks: Y Opiate Contract Signed: 10/20/15 9. Risk Assessment Tool Provided: 0/LOW 10. Functional Assessment Tool: 11. Recreational Drug Use: Never Drug Type: Tobacco Use: Former Smoker Tobacco Type: Amount or Packs/day: How Many Years: Alcohol Use: No Frequency: Quant:
--- NOTE | 2019-08-27 08:00 | HPC ---
[facility] [place] [address] PAIN MANAGEMENT CONSULTATION Name: ROSI VALDES Room #: REG VICENTE Asim#: [id number] Admission: 08/26/19 Attend Phys: Maribeth Hays Discharge: Date of : 66 Report #: [id number] THIS REPORT FOR: cc: Roxie Santos MD, Nora P. MD Hocker, Amanda CNS ~ CC: Marco Antonio Doss MD DATE OF SERVICE: 08/26/2019 CHIEF COMPLAINT: Low back pain and left leg pain. HISTORY OF PRESENT ILLNESS: This is a very pleasant 48-year-old gentleman who returns to the pain clinic today for a refill of his opioid medications. Today, the patient is stating his low back and left foot are his most problematic pain generators. Today, he is reporting they are intermittent and sharp and a pain score of 5/10. He says that walking, standing, and his dialysis do increase his pain. He feels that the medication has been beneficial, though today, he reports he would like to return to his hydrocodone for his breakthrough pain medicine. When we saw him at his last visit, he thought the efficacy of his hydrocodone had decreased and was requesting a slightly stronger medication and we did rotate him to oxycodone. The patient has found that, that is not as beneficial as the hydrocodone had been and is wondering if he may rotate back to his previous medication. He states that he does have problems with constipation occasionally and uses Movantik on an as needed basis. Usually, he reports taking it every third day. The patient reports he has currently not working. He has been laid off from the [employer] due to the coronavirus. The entire plan has shut down. He is hopeful to restart working in the middle of August, though he does collect unemployment and reports he is financially making more money on unemployment than he would be working every day of the week. ALLERGIES: No known drug allergies. CURRENT LIST OF MEDICATIONS: Movantik 12.5 mg, oxycodone 7.5/325 p.r.n., methadone 10 mg at bedtime, carvedilol, Sensipar, calcitriol, amlodipine, Lasix, calcium, Nephrocaps. PQRS: 1. He has osteoarthritis in his hand and spine. Denies any rheumatoid arthritis. 2. Height is 5 feet 9 inches, weight is 292, BMI is 43. 3. Vital signs 117/87, pulse is 94, respirations 16, oxygen sat is 97. 4. Pain score is 5/10. 5. Denies dizziness, does not need help walking or standing, [place] [address] PAIN MANAGEMENT CONSULTATION Name: ROSI VALDES Room #: REG VICENTE Dailey#: [id number] Admission: 08/26/19 Attend Phys: Maribeth Hays Discharge: Date of : 66 Report #: [id number] the last 3 months. 6. The patient is not on any blood thinners, but does take medicine for hypertension. 7. Opioid therapy is greater than 6 weeks; therefore, an opioid signed contract is on the chart. Risk assessment tool is low. Functional assessment is 11 out of 70. 8. Recreational drug use, he denies. He is not a smoker and does not drink alcohol. According to the prescription monitoring system, the patient is filling appropriately for his medications from Dr. Ortiz Doss in a timely fashion. According to the CDC guidelines, his morphine mEq is 50 MME per day. There is a recent drug screen on the chart that is appropriate for his medications as well. PHYSICAL EXAMINATION: GENERAL: This is alert and orientated, very pleasant 48-year-old gentleman who appears his stated age, placing his current pain score at 5/10 today. HEENT: Normocephalic, atraumatic. Extraocular eye muscles are intact. Mucous membranes are moist. NECK: Without adenopathy or JVD. MUSCULOSKELETAL: He is without significant scoliosis, kyphosis or lordosis. He walks with a slightly antalgic gait. His lower extremity strength judged to be 5/5 in all major muscle groups. He has a shunt in his left upper arm for dialysis with a good thrill. He has pain in his lumbosacral region that radiates into his left lower extremity following the L5-S1 dermatomal distribution to his left foot. IMPRESSION: 1. Lumbar radiculopathy. 2. Chronic pain involving the lumbar spine. 3. Chronic renal failure regarding hemodialysis at home. 4. Opioid-induced constipation, using Movantik. 5. Chronic pain medicine under written opioid agreement. We reviewed the fact that opiate medications are being used to provide analgesia adequate to support activities of daily living, not attempting to achieve a specific pain score on the 0-10 Visual Analog Scale. The current opiate medications are providing sufficient analgesia to allow the patient to participate in activities of daily living. The patient is not exhibiting any aberrant behavior suggestive of drug diversion. The patient is not having any adverse reactions to medications. The patient is not suffering from daytime somnolence or mental acuity changes. The patient is managing opiate-induced constipation with appropriate xhgy-lvh-xhnjawa agents and dietary considerations. The patient was counseled on concern for caution with operating a motor vehicle while using opiate medications. [address] [address] PAIN MANAGEMENT CONSULTATION Name: ROSI VALDES Room #: REG [facility] Asim#: [id number] Admission: 08/26/19 Attend Phys: Maribeth Hays Discharge: Date of : 66 Report #: [id number] PLAN: 1. We discussed treatment options with the patient today. The patient had requested an opioid rotation at his last visit thinking that the hydrocodone was losing its efficacy. We did rotate him to oxycodone. The patient has found that this is not as beneficial as the hydrocodone, would like to rotate back to his previous medication. Today, we will refill hydrocodone 10/325, #60 for today and 4-week supply. 2. We will continue on his methadone 10 mg at bedtime, #30 given for today and 4-week supply. These medicines were sent electronically to the pharmacy by Dr. Ortiz Doss who did collaborate care with this patient today. 3. The patient does not need Movantik refills. He does take this for his opioid-induced constipation, but not on a daily basis. He has still another refill from our last visit. 4. The patient will return in 2 months for a next office visit. <ELECTRONICALLY SIGNED> By: Maribeth Hays 08/27/19 0800 0949 1045 Maribeth Hays /clara
== END ==
LOC: PAIN 07:38
DX: M54.16 Radiculopathy, lumbar region (principal); F11.20 Opioid dependence, uncomplicated; N18.9 Chronic kidney disease, unspecified; M79.605 Pain in left leg; Z79.899 Other long term (current) drug therapy

== ENCOUNTER → 2019-10-26 | Outpatient (CLI) | payer BC ==
[~2019-10-26] VITALS: Ht 175.3 cm; Wt 132.6 kg
[~2019-10-26] MED LIST changes: +MOVANTIK25 MG PO; +VENTOLIN HFA INH8 GM INH
[2019-10-26 08:14] VITALS: BP 112/75
--- NOTE | 2019-10-26 08:28 | NUR ---
Pain Clinic Assessment: 1. History of Osteoarthritis: LEFT HAND History of Rheumatoid Arthritis: DENIES 2. Height: 5 ft. 9 in. 175.3 cm. Weight: 292.4 lb. oz. 132.632 kg. Patient's BMI: 43.2 3. Vital Signs: BP: 112/75 Pulse: 87 Resp: 20 Temp: 02 Sat: 97 ECG Mon: 4. Pain Intensity: 7 5. Fall Risk: Dizziness: N Needs help standing or walking: N Fallen in the last 3 months: N Fall risk comments: 6. Patient on Blood Thinner: None 7. History of Hypertension: Y 8. Opioid Therapy greater than 6 weeks: Y Opiate Contract Signed: 10/20/15 9. Risk Assessment Tool Provided: 0/LOW 10. Functional Assessment Tool: 11. Recreational Drug Use: Never Drug Type: Tobacco Use: Former Smoker Tobacco Type: Amount or Packs/day: How Many Years: Alcohol Use: No Frequency: Quant:
--- NOTE | 2019-10-26 14:31 | HPC ---
[facility] [address] [address] PAIN MANAGEMENT CONSULTATION Name: ROSI VALDES Room #: REG VICENTE VernJagdish#: [id number] Admission: 10/26/19 Attend Phys: Maribeth Hays Discharge: Date of : 66 Report #: [id number] THIS REPORT FOR: cc: Roxie Santos MD, Nora P. MD Hocker, Amanda CNS ~ CC: Marco Antonio Doss MD DATE OF SERVICE: 10/26/2019 CHIEF COMPLAINT: Low back pain and left leg pain. HISTORY OF PRESENT ILLNESS: This is a very pleasant 48-year-old gentleman who returns to the pain clinic today for refill of his medications and to discuss his pain. He reports he recently had increased low back pain. It did not radiate down his legs as it typically does, but patient feels that it was significant enough that he did have a CAT scan at [place]. He has not had the results of this exam. He is going to have that faxed to us later this week. He states that he had hematuria during this time as well. He thought it may have been kidney related since he is on dialysis. It slowly resolved by using heat and ice, but today he continues to have an increased pain of 7/10 again in his low back. Occasionally his pain does radiate down his left leg into his foot during this outbreak of increased pain. It was not radiating down his left leg. The patient does state that normally walking, standing and dialysis do increase his pain. The medications are beneficial as well as sitting. The patient does state that he uses the Movantik for his opioid-induced constipation, though not on a daily basis. The patient tells me he is still off work from the [employer] due to the COVID virus. He reports he will be currently off through November since he is very high risk being on dialysis. He has been staying at home throughout this time, so he is unsure what caused his pain to be so intense since he has not been doing much activity. ALLERGIES: No known drug allergies. CURRENT LIST OF MEDICATIONS: Movantik p.r.n., albuterol, hydrocodone 10/325, methadone 10 mg at bedtime, Sensipar, calcitriol, amlodipine, Lasix, calcium acetate and Nephrocaps. PQRS: 1. He has osteoarthritis in his left hand. Denies any rheumatoid arthritis. 2. Height is 5 feet 9 inches, weight is 292, BMI is 43. Vital signs, blood pressure 112/75, pulse is 87, respirations 20, oxygen sat is 97%. 3. Pain score 7/10. 4. Denies dizziness. Does not need help walking or standing, has not fallen in [address] [address] PAIN MANAGEMENT CONSULTATION Name: ROSI VALDES Room #: REG CL Asim#: [id number] Admission: 10/26/19 Attend Phys: Maribeth Hays Discharge: Date of : 66 Report #: [id number] the last 3 months. 5. The patient is not on any blood thinners, but does take medicine for hypertension. 6. Opioid therapy is greater than 6 weeks; therefore, an opioid signed contract is on the chart. Risk assessment tool is low. Functional assessment is . 7. Recreational drug use, he denies. He is a former smoker and does not drink alcohol. According to the prescription monitoring system, he is due to fill his medications this week, filling them in a timely fashion. According to the CDC guidelines, his morphine mEq is 50 MMEs. There is a drug screen on the chart that is appropriate and we will check a random buccal swab at his next visit. PHYSICAL EXAMINATION: GENERAL: This is a well-developed, well-nourished, slightly obese 48-year-old gentleman who appears his stated age, placing his current pain score at 7/10. HEENT: Normocephalic, atraumatic. Extraocular eye muscles are intact. Mucous membranes are moist. He is wearing a mask as well. MUSCULOSKELETAL: He is without significant scoliosis, kyphosis or lordosis. He has an antalgic gait. His lower extremity strength judged to be 5/5. Pain in his lumbosacral region that radiates into his left lower extremity following the L5-S1 dermatomal distribution. Pain in the paraspinal musculature, has tenderness in the paraspinal musculature of the lumbar region. He has a shunt in his left upper arm for dialysis with a good thrill. IMPRESSION: 1. Lumbar radiculopathy. 2. Chronic pain, revolving the lumbar spine. Recent flare of increased pain. 3. Chronic renal failure regarding hemodialysis. 4. Opioid-induced constipation. 5. Chronic opioid medications under written agreement. We reviewed the fact that opiate medications are being used to provide analgesia adequate to support activities of daily living, not attempting to achieve a specific pain score on the 0-10 Visual Analog Scale. The current opiate medications are providing sufficient analgesia to allow the patient to participate in activities of daily living. The patient is not exhibiting any aberrant behavior suggestive of drug diversion. The patient is not having any adverse reactions to medications. The patient is not suffering from daytime somnolence or mental acuity changes. The patient is managing opiate-induced constipation with appropriate ulyd-wwj-kkmkott agents and dietary considerations. The patient was counseled on concern for caution with operating a motor vehicle while using opiate medications. A physical exam was performed and the patient's functional status was evaluated. All patients with back pain were advised against the bed rest greater than 4 [facility] [address] [place] [address] PAIN MANAGEMENT CONSULTATION Name: LUCIOROSI Room #: REG [facility]#: [id number] Admission: 10/26/19 Attend Phys: Maribeth Hays Discharge: Date of : 66 Report #: [id number] days and were advised to return to normal activities. Pain score assessment was noted and the treatment plan was reviewed with the patient. All current medications, both prescribed and OTC were reviewed and reconciled on the electronic medical record. Tobacco screening was accomplished and smoking cessation was advised when indicated. BMI was noted and diet/exercise modification was recommended for all patients following outside normal parameters. I reviewed with the patient today their responsibilities to safeguard prescription medications, reviewed their responsibility to utilize medications only as prescribed by the physician. They are to seek and receive pain medications only from 1 physician group ( [facility]). They are to use 1 pharmacy and keep the clinic informed if they change pharmacies. Their responsibilities include making followup visits in a timely fashion and to avoid abrupt discontinuation of medication usage. Their responsibilities further include bringing their medications (bottles from the pharmacy with residual pills) to the visit for possible confirmation of pill counts and the patient understands it is their responsibility to submit to random drug screens to ensure both that the medications prescribed are present, and that no other controlled substances are present. All prescriptions provided today were generated electronically. PLAN: 1. We discussed treatment options with the patient today. The patient had a recent flare of his low back pain. It did not radiate down into his left leg. He had a CAT scan performed of his lumbar spine at [place]. He will have those records sent to us. We did discuss briefly he may need an epidural, it had been some time since Dr. Doss had provided him with one. 2. The patient will call us if his pain does increase and we will review the CT results once we get them later this week. 3. We will refill his methadone 10 mg, the patient takes at bedtime, #30 for today and 4-week release as well as his hydrocodone 10/325, #60 for today and 4-week release. 4. At the next visit, we will collect an oral swab for random drug screen. 5. The patient is seen in collaboration with Dr. Ortiz Doss who did see the patient as well today. <ELECTRONICALLY SIGNED> By: Maribeth Hays 10/26/19 1431 0918 [id number] Maribeth Hays /clara
== END ==
LOC: PAIN 06:51
PROVIDERS: ATTEND Clinical Nurse Specialist Adult Health
DX: M54.16 Radiculopathy, lumbar region (principal); M79.605 Pain in left leg; G89.29 Other chronic pain; N18.9 Chronic kidney disease, unspecified; K59.09 Other constipation; F11.20 Opioid dependence, uncomplicated; Z87.891 Personal history of nicotine dependence; Z79.899 Other long term (current) drug therapy

== ENCOUNTER → 2019-12-23 | Outpatient (CLI) | payer BC ==
[~2019-12-23] VITALS: Ht 175.3 cm; Wt 132.0 kg
[2019-12-23 08:14] VITALS: BP 112/60
--- NOTE | 2019-12-23 08:30 | NUR ---
Pain Clinic Assessment: 1. History of Osteoarthritis: LEFT HAND History of Rheumatoid Arthritis: DENIES 2. Height: 5 ft. 9 in. 175.3 cm. Weight: 291.0 lb. oz. 131.997 kg. Patient's BMI: 43.0 3. Vital Signs: BP: 112/60 Pulse: 81 Resp: 16 Temp: 02 Sat: 100 ECG Mon: 4. Pain Intensity: 7 5. Fall Risk: Dizziness: N Needs help standing or walking: N Fallen in the last 3 months: N Fall risk comments: 6. Patient on Blood Thinner: None 7. History of Hypertension: Y 8. Opioid Therapy greater than 6 weeks: Y Opiate Contract Signed: 10/20/15 9. Risk Assessment Tool Provided: 0/LOW 10. Functional Assessment Tool: 11. Recreational Drug Use: Never Drug Type: Tobacco Use: Former Smoker Tobacco Type: Amount or Packs/day: How Many Years: Alcohol Use: No Frequency: Quant:
--- NOTE | 2019-12-24 12:24 | HPC ---
[facility] [address] [place] [address] PAIN MANAGEMENT CONSULTATION Name: ROSI VALDES Room #: REG VICENTE JagdishAraceliJagdish#: [id number] Admission: 12/23/19 Attend Phys: Maribeth Hays Discharge: Date of : 66 Report #: [id number] THIS REPORT FOR: cc: Roxie Santos MD, Nora P. MD Hocker, Amanda CNS ~ CC: Marco Anotnio Doss MD DATE OF SERVICE: 12/23/2019 CHIEF COMPLAINT: Low back pain and left leg pain. HISTORY OF PRESENT ILLNESS: This is a very pleasant 49-year-old gentleman who returns to the pain clinic today for a refill of his opioid medications that he uses to help treat his ongoing low back pain and neuropathy. The patient states that his pain is averaging 7 lately. He has returned to work after being off for quite some time in the COVID outbreak. [employer] kept him off longer than most due to his renal issues and his other health concerns. The patient states since he is back to work his pain has increased slightly in his low back and foot. It is an aching, sharp pain, rating at a 7/10. He does feel that it is worse when he is walking and standing or on dialysis days, but he feels his medications have been beneficial as well as sitting. He denies any problems with constipation as a result of his medication. The patient has been complaining of increasing leg cramps since he has returned to work. He states that it has been very hot plus he has to wear a mask now at all times, which causes him to be even hotter. He does sweat quite a bit at work and has been experiencing significant leg cramps later in the day. ALLERGIES: No known drug allergies. CURRENT LIST OF MEDICATIONS: Movantik 25 mg daily, albuterol, hydrocodone 10/325, methadone 10 mg daily, carvedilol, Sensipar, calcitriol, amlodipine, Lasix, calcium acetate and vitamin B complex. PQRS: 1. He has arthritic changes in his hands. Denies any rheumatoid arthritis. 2. Height is 5 feet 9 inches, weight is 291, BMI is 43. 3. Vital signs; blood pressure 112/60, pulse is 81, respirations 16, oxygen sat is 100, pain score 7/10. 4. Fall risk. Denies dizziness, does not need help walking or standing, has not fallen in the last 3 months. He is not on any blood thinners, but does take medicine for hypertension. 5. His opioid therapy is greater than 6 weeks; therefore, an opioid signed contract is on the chart. Risk assessment is low. Functional [place] [address] PAIN MANAGEMENT CONSULTATION Name: ROSI VALDES Room #: REG CLCaroline Dailey#: [id number] Admission: 12/23/19 Attend Phys: Maribeth Hays Discharge: Date of : 66 Report #: [id number] 6. Recreational drug use, he denies. He is a former smoker and does not drink alcohol. According to the prescription monitoring system, he is filling his medications appropriately. According to the CDC guidelines, his morphine milliequivalent is 50 MME per day. We will check a random drug screen on this patient today. We will obtain a buccal swab since he is unable to void due to dialysis. PHYSICAL EXAMINATION: GENERAL: This is a well-developed, well-nourished, slightly obese 49-year-old gentleman who appears his stated age, placing his current pain score at 7/10. He is a good historian. HEENT: Normocephalic, atraumatic. Extraocular eye muscles are intact. He is wearing a mask. Sclerae are nonintrinsic. MUSCULOSKELETAL: He is without significant scoliosis, kyphosis or lordosis. He has pain in his low back area that radiates into his left leg. He has a slightly antalgic gait. Pain is involved at the L5-S1 dermatomal distribution. His lower extremity muscle strength judged to be 5/5 in all major muscle groups. He has a shunt and thrill in his left upper arm. IMPRESSION: 1. Lumbar radiculopathy with the L5-S1 area. 2. Chronic pain involving the lumbar spine. 3. Chronic renal failure, requiring hemodialysis. 4. Opioid-induced constipation, being treated with Movantik. 5. Chronic pain under terms of written opioid agreement. We reviewed the fact that opiate medications are being used to provide analgesia adequate to support activities of daily living, not attempting to achieve a specific pain score on the 0-10 Visual Analog Scale. The current opiate medications are providing sufficient analgesia to allow the patient to participate in activities of daily living. The patient is not exhibiting any aberrant behavior suggestive of drug diversion. The patient is not having any adverse reactions to medications. The patient is not suffering from daytime somnolence or mental acuity changes. The patient is managing opiate-induced constipation with appropriate htcj-cjd-nwiyyav agents and dietary considerations. The patient was counseled on concern for caution with operating a motor vehicle while using opiate medications. A physical exam was performed and the patient's functional status was evaluated. All patients with back pain were advised against the bed rest greater than 4 days and were advised to return to normal activities. Pain score assessment was noted and the treatment plan was reviewed with the patient. All current medications, both prescribed and OTC were reviewed and reconciled on the electronic medical record. Tobacco screening was accomplished and smoking cessation was advised when indicated. BMI was noted and diet/exercise [facility] [address] [place] [address] PAIN MANAGEMENT CONSULTATION Name: LUCIOROSI Room #: REG [facility].#: [id number] Admission: 12/23/19 Attend Phys: Maribeth Hays Discharge: Date of : 66 Report #: [id number] modification was recommended for all patients following outside normal parameters. I reviewed with the patient today their responsibilities to safeguard prescription medications, reviewed their responsibility to utilize medications only as prescribed by the physician. They are to seek and receive pain medications only from 1 physician group ( [facility]). They are to use 1 pharmacy and keep the clinic informed if they change pharmacies. Their responsibilities include making followup visits in a timely fashion and to avoid abrupt discontinuation of medication usage. Their responsibilities further include bringing their medications (bottles from the pharmacy with residual pills) to the visit for possible confirmation of pill counts and the patient understands it is their responsibility to submit to random drug screens to ensure both that the medications prescribed are present, and that no other controlled substances are present. All prescriptions provided today were generated electronically. PLAN: 1. We discussed treatment options with the patient today. The patient finds his medications very beneficial. We will refill his medications: Methadone 10 mg, #30 at bedtime for today and 4-week supply as well as hydrocodone b.i.d., #60 for today and 4-week supply. 2. The patient is not needing Movantik currently, we will refill if he needs this prior to his next appointment. 3. We will have the patient resign his opioid agreement. It has been several years since he has done that and we will obtain a buccal swab on him today for a random drug screen. 4. We did discuss his ongoing leg cramp issues. I encouraged him to use tonic water, Gatorade. He states that Gatorade does make his cramping worse. He may see about adjusting his dry weight for dialysis for the next few weeks while the temperature is high and he is diaphoresing quite a bit at work and see if that makes a difference. 5. The patient will return in 2 months. The patient is seen today in collaboration with Dr. Ortiz Doss. <ELECTRONICALLY SIGNED> By: Maribeth Hays 12/24/19 [id number] Maribeth Hays /clara
== END ==
LOC: PAIN 06:46
PROVIDERS: ATTEND Clinical Nurse Specialist Adult Health
DX: K59.03 Drug induced constipation (principal); T40.2X5A Adverse effect of other opioids, initial encounter; M54.17 Radiculopathy, lumbosacral region; G89.29 Other chronic pain; N18.6 End stage renal disease; Z99.2 Dependence on renal dialysis; Z79.891 Long term (current) use of opiate analgesic; Y92.89 Other specified places as the place of occurrence of the external cause

== ENCOUNTER → 2020-02-24 | Outpatient (CLI) | payer BC ==
[~2020-02-24] VITALS: Ht 175.3 cm; Wt 133.5 kg
--- NOTE | ~2020-02-24 | HPC ---
[facility] [address] [place] [address] PAIN MANAGEMENT CONSULTATION Name: ROSI VALDES Room #: REG VICENTE Asim#: [id number] Admission: 02/24/20 Attend Phys: Fredy Doss MD Discharge: Date of : 66 Report #: [id number] CC: Fredy Santos DATE OF SERVICE: 02/24/2020 CHIEF COMPLAINT: Here for medication renewal. HISTORY: The patient is a 49-year-old gentleman who has been followed in the pain clinic because of chronic back and leg pain. He continues to perform peritoneal dialysis at home. He suffered from renal failure. Because of renal failure, he has been on dialysis. He does hemodialysis at home overnight. The patient feels that things are going reasonably well. He continues with his job at [employer]. He has been isolating himself as much as possible to avoid COVID-19. He rates his pain as a 5/10. He is having some pain and discomfort in his left foot. He feels that the top of his foot is sensitive. He feels that there is a cramp starting in his foot. He also feels that there is increased cramping and discomfort when he removes quite a bit of dialysis fluid. He would like to continue with his medications. He has had no complications at this juncture. ALLERGIES: No known drug allergies. CURRENT MEDICATIONS: Movantik 12.5 mg p.o. p.r.n., methadone 10 mg at bedtime, hydrocodone 10/325 1 p.o. b.i.d., carvedilol 6.25 mg b.i.d., Citracal 0.5 mg daily, amlodipine 10 mg daily, Lasix 40 mg b.i.d., calcium 667 mg, Nephrocaps daily. PAIN CLINIC ASSESSMENT AND PQRS: 1. The patient has some osteoarthritic changes in the lower portion of his spine as well as in his hands. He is not being treated for rheumatoid arthritis. 2. Height 5 feet 9 inches, weight 294 pounds, BMI 43.5. 3. Vital Signs: Blood pressure 124/90, pulse 86, respiratory rate 18, room air saturation is 100%. 4. Pain intensity, 10. 5. Fall history. The patient has not fallen in the last 3 months. 6. Blood thinner. The patient is not on a blood thinning medication. 7. Hypertension. The patient is being treated for hypertension. 8. Opioids greater than 6 weeks. The patient receives medication from the pain clinic. 9. Risk assessment tool, low for opioid use. 10. Functional assessment tool, . 11. Recreational drug use. The patient denies. 12. Tobacco. The patient is a former tobacco smoker. 13. Alcohol. The patient denies frequent use of alcoholic beverages. PHYSICAL EXAMINATION: GENERAL: The patient is a well-developed, well-nourished, gentleman. He is alert and oriented x 3. His affect is appropriate. Speech is fluent. HEENT: Normocephalic, atraumatic. Extraocular eye muscles intact. Sclerae nonicteric. The patient is wearing a mask. NECK: Without adenopathy or JVD. HEART: Regular. ABDOMEN: Protuberant. MUSCULOSKELETAL: The patient without significant scoliosis, kyphosis or lordosis. The patient does have some pain and discomfort in his low back area. Notes that there is pain that radiates down into his left leg in the L4-L5 dermatomal distribution with numbness on the dorsum of his foot and tingling. The patient has a significant thrill and shunt in his left upper arm, diameter about 1 inch. Muscle strength, the patient's strength judged to be 5/5 for the major muscle groups in the upper extremity. The patient has some pain and discomfort in lower portion of his back. The patient does walk with a slight antalgic gait. IMPRESSION: 1. Lumbar radiculopathy in the L4-L5 dermatomal distribution. 2. Chronic pain involving lumbar spine. 3. Chronic renal failure, requiring hemodialysis. 4. Opioid-induced constipation, treated with Movantik. 5. Chronic pain treated with opioid medications. RECOMMENDATIONS: We discussed treatment options with the patient. At this juncture, he feels that his medications are not quite as optimal as they had been in the past. He feels that his pain can be a little bit more problematic as the day wears on. He feels that hydrocodone and methadone continue to be helpful. We have discussed the options. The patient was on methadone 10 mg t.i.d. We will now have the patient try hydrocodone 10 mg 1 p.o. t.i.d. He will take 1 tablet morning, 1 midday and one-half tablet in the evening. Hopefully, he will notice an improvement in his pain and discomfort. He will call us if he has any concerns. The patient will also continue with Movantik. A script for the Movantik 25 mg 1 p.o. daily has been provided for the opioid-induced constipation. We would like to thank you for letting us participate in his care. We hope he continues to improve. By: [id number] Fredy Doss MD /CHRISS
[2020-02-24 08:00] VITALS: BP 124/90
--- NOTE | 2020-02-24 08:12 | NUR ---
Pain Clinic Assessment: 1. History of Osteoarthritis: LEFT HAND History of Rheumatoid Arthritis: DENIES 2. Height: 5 ft. 9 in. 175.3 cm. Weight: 294.4 lb. oz. 133.539 kg. Patient's BMI: 43.5 3. Vital Signs: BP: 124/90 Pulse: 86 Resp: 18 Temp: 02 Sat: 100 ECG Mon: 4. Pain Intensity: 5 5. Fall Risk: Dizziness: N Needs help standing or walking: N Fallen in the last 3 months: N Fall risk comments: 6. Patient on Blood Thinner: None 7. History of Hypertension: Y 8. Opioid Therapy greater than 6 weeks: Y Opiate Contract Signed: 10/20/15 9. Risk Assessment Tool Provided: 0/LOW 10. Functional Assessment Tool: 11. Recreational Drug Use: Never Drug Type: Tobacco Use: Former Smoker Tobacco Type: Amount or Packs/day: How Many Years: Alcohol Use: No Frequency: Quant:
== END ==
LOC: PAIN 06:45
PROVIDERS: ATTEND Anesthesiology Pain Medicine
DX: M54.16 Radiculopathy, lumbar region (principal); G89.29 Other chronic pain; K59.03 Drug induced constipation; Z79.891 Long term (current) use of opiate analgesic; T40.2X5A Adverse effect of other opioids, initial encounter; Y92.89 Other specified places as the place of occurrence of the external cause

== ENCOUNTER → 2020-04-20 | Outpatient (CLI) | payer BC ==
[~2020-04-20] VITALS: Ht 175.3 cm; Wt 138.3 kg
[2020-04-20 08:00] VITALS: BP 144/88
--- NOTE | 2020-04-20 08:06 | NUR ---
Pain Clinic Assessment: 1. History of Osteoarthritis: LEFT HAND History of Rheumatoid Arthritis: DENIES 2. Height: 5 ft. 9 in. 175.3 cm. Weight: 305.0 lb. oz. 138.348 kg. Patient's BMI: 45.0 3. Vital Signs: BP: 144/88 Pulse: 85 Resp: 18 Temp: 02 Sat: 100 ECG Mon: 4. Pain Intensity: 3 5. Fall Risk: Dizziness: N Needs help standing or walking: N Fallen in the last 3 months: N Fall risk comments: 6. Patient on Blood Thinner: None 7. History of Hypertension: Y 8. Opioid Therapy greater than 6 weeks: Y Opiate Contract Signed: 10/20/15 9. Risk Assessment Tool Provided: 0/LOW 10. Functional Assessment Tool: 11. Recreational Drug Use: Never Drug Type: Tobacco Use: Former Smoker Tobacco Type: Amount or Packs/day: How Many Years: Alcohol Use: No Frequency: Quant:
--- NOTE | 2020-04-20 15:44 | HPC ---
[facility] [address] [address] [place] [address] PAIN MANAGEMENT CONSULTATION Name: ROSI VALDES Room #: REG VICENTE [facility]#: [id number] Admission: 04/20/20 Attend Phys: Maribeth Hays Discharge: Date of : 66 Report #: [id number] THIS REPORT FOR: cc: Roxie Santos MD, Nora P. MD Hocker,Maribeth SWANN ~ DATE OF SERVICE: 04/20/2020 CHIEF COMPLAINT: Chronic back pain and leg pain. HISTORY OF PRESENT ILLNESS: This is a very pleasant 49-year-old gentleman who returns today for a medication refill. He reports a slight increase in his hydrocodone taking half a tablet now at bedtime, has been beneficial. He is therefore reporting his pain a 3/10 in his lower back that radiates down his left leg to his foot. It is an aching, sharp in sensation that is worse with walking and standing or post-dialysis, but he does believe that slight increase has been very beneficial in reducing his overall pain. He denies significant constipation, though when he is constipated he finds the Movantik beneficial and he is not needing refill of that medication today, only his methadone and hydrocodone. ALLERGIES: No known drug allergies. CURRENT LIST OF MEDICATIONS: Movantik 12.5, methadone 10 mg at bedtime, hydrocodone 10/325, carvedilol, Citracal, amlodipine, Lasix, calcium, Nephrocaps. PQRS: 1. He has osteoarthritis in his lower portion of his spine as well as his hands. Denies any rheumatoid arthritis. 2. Height is 5 feet 9 inches, weight is 305, BMI is 45. 3. Vital signs, blood pressure 144/88, pulse is 85, respirations are 18, oxygen sat is 100. 4. Pain score is 3/10. 5. Denies dizziness, does not need help walking or standing, has not fallen in the last 3 months. 6. The patient is not on any blood thinners, but does have a history of hypertension. 7. Opioid therapy is greater than 6 weeks, therefore an opioid signed contract is on the chart. Risk assessment is low. Functional assessment is . 8. Recreational drug use, he denies. He is a former smoker and does not drink alcohol. According to the prescription monitoring system, the patient is due to fill his medications next week, filling them in a timely fashion. His overall morphine mEq is [address] [place] [address] PAIN MANAGEMENT CONSULTATION Name: ROSI VALDES Room #: REG CLCaroline Dailey#: [id number] Admission: 04/20/20 Attend Phys: Maribeth Hays Discharge: Date of : 66 Report #: [id number] PHYSICAL EXAMINATION: GENERAL: This is alert and orientated, very pleasant, well-developed, obese 49-year-old who appears his stated age, placing his current pain score at 3/10. HEENT: Normocephalic, atraumatic. Extraocular eye muscles are intact. Sclerae are nonintrinsic. He is wearing a mask. NECK: Without adenopathy or JVD. ABDOMEN: Protuberant. MUSCULOSKELETAL: He is without significant scoliosis, kyphosis or lordosis. Discomfort and tenderness in his lumbar spine that does radiate into his left leg following the L4-L5 dermatomal distribution with numbness in the dorsum of his foot. He has a shunt in his left upper arm with a significant thrill. Upper and lower extremity strength are symmetrical at 5/5. He has a slightly antalgic gait. IMPRESSION: 1. Lumbar radiculopathy at the L4-L5 dermatomal distribution. 2. Chronic pain involving lumbar spine. 3. Chronic renal failure requiring hemodialysis at home. 4. Opioid-induced constipation. 5. Chronic pain treated with opioid medications under written agreement. We reviewed the fact that opiate medications are being used to provide analgesia adequate to support activities of daily living, not attempting to achieve a specific pain score on the 0-10 Visual Analog Scale. The current opiate medications are providing sufficient analgesia to allow the patient to participate in activities of daily living. The patient is not exhibiting any aberrant behavior suggestive of drug diversion. The patient is not having any adverse reactions to medications. The patient is not suffering from daytime somnolence or mental acuity changes. The patient is managing opiate-induced constipation with appropriate sree-yud-faohkwu agents and dietary considerations. The patient was counseled on concern for caution with operating a motor vehicle while using opiate medications. PLAN: 1. We discussed treatment options with the patient today. Overall, he believes he is doing very well with his slight increase of hydrocodone. We will have him continue his methadone 10 mg at bedtime, #30 will be sent electronically by Dr. Doss as well as his hydrocodone 10/325, enabling 75 tablets per the month. This also will be sent by Dr. Doss for a 2-month supply. 2. The patient is seen today in collaboration with Dr. Doss. <ELECTRONICALLY SIGNED> By: Maribeth Hays 04/20/20 1544 [id number] Maribeth Hays /nt
== END ==
LOC: PAIN 06:45
PROVIDERS: ATTEND Clinical Nurse Specialist Adult Health
DX: M54.16 Radiculopathy, lumbar region (principal); G89.29 Other chronic pain; I12.0 Hypertensive chronic kidney disease with stage 5 chronic kidney disease or end stage renal disease; N18.6 End stage renal disease; Z99.2 Dependence on renal dialysis; Z79.891 Long term (current) use of opiate analgesic

== ENCOUNTER → 2020-06-22 | Outpatient (CLI) | payer BC ==
[~2020-06-22] VITALS: Ht 175.3 cm; Wt 134.0 kg
[~2020-06-22] MED LIST changes: +AMBIEN 10 MG TA10 MG PO; +AMLODIPINE-BEN1 EACH PO
[2020-06-22 08:30] VITALS: BP 125/76
--- NOTE | 2020-06-22 08:42 | NUR ---
Pain Clinic Assessment: 1. History of Osteoarthritis: LEFT HAND History of Rheumatoid Arthritis: DENIES 2. Height: 5 ft. 9 in. 175.3 cm. Weight: 295.4 lb. oz. 133.993 kg. Patient's BMI: 43.6 3. Vital Signs: BP: 125/76 Pulse: 87 Resp: 16 Temp: 02 Sat: 98 ECG Mon: 4. Pain Intensity: 7 5. Fall Risk: Dizziness: N Needs help standing or walking: N Fallen in the last 3 months: N Fall risk comments: 6. Patient on Blood Thinner: None 7. History of Hypertension: Y 8. Opioid Therapy greater than 6 weeks: Y Opiate Contract Signed: 10/20/15 9. Risk Assessment Tool Provided: 0/LOW 10. Functional Assessment Tool: 11. Recreational Drug Use: Never Drug Type: Tobacco Use: Former Smoker Tobacco Type: Amount or Packs/day: How Many Years: Alcohol Use: No Frequency: Quant:
--- NOTE | 2020-06-22 13:05 | HPC ---
[facility] [address] [address] PAIN MANAGEMENT CONSULTATION Name: ROSI VALDES Room #: REG VICENTE JagdishJagdish#: [id number] Admission: 06/22/20 Attend Phys: Maribeth Hays Discharge: Date of : 66 Report #: [id number] THIS REPORT FOR: cc: Roxie Santos MD, Nora P. MD Hocker, Amanda CNS ~ DATE OF SERVICE: 06/22/2020 CHIEF COMPLAINT: Chronic low back pain and left leg pain. HISTORY OF PRESENT ILLNESS: This is a pleasant 49-year-old gentleman who returns today for refills of his medication. Today, he is reporting a pain score of 7/10. He believes his left foot has been more problematic lately causing some increased numbness and tingly sensation, especially in the greater toe. His pain is also located in his low back. He describes his pain as an aching, sharp sensation along with tingly sensation in his foot. It is worse with walking and after dialysis. He believes his medications have been beneficial in controlling his pain. He also believes he has less side effects such as somnolence and constipation since we have lowered his methadone, which has been several months ago. Today, he is requesting refills of his medication. He is also wondering if we would be willing to write his Ambien. He had had that in the past, but not from our clinic doctors. ALLERGIES: No known drug allergies. CURRENT LIST OF MEDICATIONS: Methadone 10 mg at bedtime, hydrocodone 10/325, Movantik p.r.n., carvedilol, Sensipar, calcitriol, amlodipine, benazepril, Lasix, calcium and Nephrocaps. PQRS: 1. He has osteoarthritis in his hands. Denies any rheumatoid arthritis. 2. Height is 5 feet 9 inches, weight is 295, BMI is 43. 3. Vital signs 125/76, pulse is 87, respirations 16, and oxygen sat is 98%. 4. Pain score is 7/10. 5. Denies dizziness, does not need assistance with ambulation. Has not fallen in the last 3 months. 6. Opioid therapy is greater than 6 weeks; therefore, an opioid signed contract is on the chart. Risk assessment is low. Functional assessment is . 7. Recreational drug use, he denies. He is a former smoker. Does not drink alcohol. According to the prescription monitoring system, he is due to fill his medications tomorrow. His morphine mEq is 55 mm per day. There is a urine drug screen on the chart that is appropriate as well. PHYSICAL EXAMINATION: [address] [address] PAIN MANAGEMENT CONSULTATION Name: ROSI VALDES Room #: REG Caroline Dailey#: [id number] Admission: 06/22/20 Attend Phys: Maribeth Hays Discharge: Date of : 66 Report #: [id number] GENERAL: This is alert and orientated, morbidly obese gentleman who is rating his pain score at 7/10 today. He appears his stated age. HEENT: Normocephalic, atraumatic. Extraocular eye muscles are intact. He is wearing a mask. NECK: Without adenopathy or JVD. MUSCULOSKELETAL: He is without scheduling for get scoliosis, kyphosis or lordosis. He has a significant shunt in his left upper arm with thrill present measures large in diameter. He has tenderness in his lumbosacral region following the L4-L5 dermatomal distribution to the dorsum part of his foot, tenderness in his greater left toe today. No edema noted. His upper and lower extremity strengths are symmetrical at 5/5. IMPRESSION: 1. Lumbar radiculopathy at the L4-L5 dermatomal distribution. 2. Chronic pain involving his lumbar spine. 3. Chronic renal failure, requiring hemodialysis. 4. Chronic pain treated with opioid medications under written agreement. 5. Opioid-induced constipation, resolving. PLAN: 1. We discussed treatment options with the patient today. He believes his hydrocodone has been beneficial and he takes his methadone at bedtime. We discussed splitting his dose to 5 mg in the morning, 5 mg at night to see if this is beneficial in helping some of his foot neuropathy. The patient will try that he had none in the past. Scripts will be sent electronically by Dr. Doss for methadone 10 mg, #30 and hydrocodone 10/325, #75. 2. We did discuss Ambien that is not a medicine that we typically prescribe in this office. I also cautioned him taking that medication with his other medicines at bedtime and his hemodialysis. He agreed. He would not take that on dialysis days, but will discuss it with his primary care doctor. 3. We did discuss the COVID vaccine. He is not in the age for the phase 2 currently, but due to his hemodialysis, he is at risk. He does work at [employer]. He believes they may be offering in the future. Otherwise, he will hopefully obtain the vaccine from [facility], his dialysis center. 4. The patient will return in 2 months. The patient is seen today in collaboration with Dr. Doss. <ELECTRONICALLY SIGNED> By: Maribeth Hays 06/22/20 1305 [id number] Maribeth petersen
== END ==
LOC: PAIN 06:48
PROVIDERS: ATTEND Clinical Nurse Specialist Adult Health
DX: M54.16 Radiculopathy, lumbar region (principal); N17.9 Acute kidney failure, unspecified; F11.20 Opioid dependence, uncomplicated; M79.605 Pain in left leg; G89.29 Other chronic pain; Z88.8 Allergy status to other drugs, medicaments and biological substances; Z79.899 Other long term (current) drug therapy

== ENCOUNTER → 2020-10-19 | Outpatient (CLI) | payer BC ==
[~2020-10-19] VITALS: Ht 175.3 cm; Wt 134.5 kg
[2020-10-19 08:06] VITALS: BP 136/74
--- NOTE | 2020-10-19 08:19 | NUR ---
Pain Clinic Assessment: 1. History of Osteoarthritis: LEFT HAND History of Rheumatoid Arthritis: DENIES 2. Height: 5 ft. 9 in. 175.3 cm. Weight: 296.6 lb. oz. 134.537 kg. Patient's BMI: 43.8 3. Vital Signs: BP: 136/74 Pulse: 80 Resp: 20 Temp: 02 Sat: 99 ECG Mon: 4. Pain Intensity: 4 TO 7 5. Fall Risk: Dizziness: N Needs help standing or walking: N Fallen in the last 3 months: N Fall risk comments: 6. Patient on Blood Thinner: None 7. History of Hypertension: Y 8. Opioid Therapy greater than 6 weeks: Y Opiate Contract Signed: 10/20/15 9. Risk Assessment Tool Provided: 0/LOW 10. Functional Assessment Tool: 11. Recreational Drug Use: Never Drug Type: Tobacco Use: Former Smoker Tobacco Type: Amount or Packs/day: How Many Years: Alcohol Use: No Frequency: Quant:
--- NOTE | 2020-10-20 08:25 | HPC ---
[facility] [address] [address] PAIN MANAGEMENT CONSULTATION Name: ROSI VALDES [facility] [id number] Admission: 10/19/20 Attend Phys: Maribeth Hays Discharge: Date of : 66 Report #: [id number] THIS REPORT FOR: cc: Roxie Santos MD, Nora P. MD Hocker, Amanda CNS ~ DOC #: [id number] Maribeth Hays NP DATE OF SERVICE: 10/19/2020 CHIEF COMPLAINT: Chronic low back pain, left leg pain. HISTORY OF PRESENT ILLNESS: This is a very pleasant 49-year-old gentleman who returns today for medication renewal. Today, the patient looks tired and worn out. He states that his pain is gradually increasing. He has returned to work at the [employer] and the heat has been bothering him. He does complain of significant itching today.Then he reports his lower back pain is increasing after dialysis and is radiating to his hips. Today, he is rating his pain score from 4-7, describing it as a chronic sharp, aching sensation. He believes that medications have been beneficial as well as sitting and staying in the cool air conditioning. Today, he is also complaining of occasional leg pain when his pain is more severe. He denies significant constipation as long as he takes MiraLax and Movantik on an as needed basis and denies any daytime somnolence. ALLERGIES: No known drug allergies. MEDICATIONS: Current list of medications; methadone 10 mg at bedtime, hydrocodone 10/325 p.r.n., Movantik, carvedilol, Sensipar, calcitriol, amlodipine/benazepril, Lasix, calcium acetate and Nephrocaps. PQRS: 1. He has osteoarthritic changes in his hands and spine. Denies any rheumatoid arthritis. 2. Height is 5 feet 9 inches, weight is 296, BMI is 43. 3. Vital signs; blood pressure 136/74, pulse is 80, respirations 20, oxygen sat is 99%. 4. Pain score is 4-7. 5. Denies dizziness. Does not need help walking or standing. Has not fallen in the last 3 months. 6. The patient is not on any blood thinners, but does take medicine for hypertension. 7. Opioid therapy is greater than 6 weeks; therefore, an opioid signed contract is on the chart. 8. Risk assessment is low. Functional assessment is . 9. Recreational drug use, he denies. He is a former smoker and does not drink alcohol. [address] [address] PAIN MANAGEMENT CONSULTATION Name: ROSI VALDES Room #: REG [facility] Asim#: [id number] Admission: 10/19/20 Attend Phys: Maribeth Hays Discharge: Date of : 66 Report #: [id number] According to the prescription monitoring system, he is due to fill his medications early next week, filling them in a timely fashion. His morphine mEq according to the CDC guidelines is 65. There is a drug screen on the chart that is appropriate for him. PHYSICAL EXAMINATION: GENERAL: This is alert and orientated, well-developed, well-nourished gentleman who appears tired today. Appears his stated age, rating his pain score today is 4-7 depending on activity. He has appropriate affect and speech is fluent. HEENT: Normocephalic and atraumatic. Extraocular eye muscles are intact. He is wearing a mask. NECK: Without adenopathy or JVD. MUSCULOSKELETAL: He is without significant scoliosis, kyphosis, lordosis. He has discomfort in the lower portion of his back that radiates into his hips bilaterally following the L5-S1 dermatomal distribution. He has a shunt in his left upper arm with positive for thrill. Muscle strength is judged to be 5/5 in all major muscle groups in upper extremities as well as his lower extremities. IMPRESSION: 1. Lumbar radiculopathy at L5-S1 region. 2. Chronic pain involving the lumbar spine. 3. Chronic renal failure requiring home dialysis. 4. Opioid-induced constipation, treated with Movantik. 5. Chronic opioid medications under written agreement. We reviewed the fact that opiate medications are being used to provide analgesia adequate to support activities of daily living, not attempting to achieve a specific pain score on the 0-10 Visual Analog Scale. The current opiate medications are providing sufficient analgesia to allow the patient to participate in activities of daily living. The patient is not exhibiting any aberrant behavior suggestive of drug diversion. The patient is not having any adverse reactions to medications. The patient is not suffering from daytime somnolence or mental acuity changes. The patient is managing opiate-induced constipation with appropriate [id number] agents and dietary considerations. The patient was counseled on concern for caution with operating a motor vehicle while using opiate medications PLAN: 1. We discussed treatment options with the patient today. We have discussed epidural steroid injection in the past several visits due to his increasing pain. The patient was going to try to have this done prior to restarting work. He has been called back to work at the [employer] and his pain has been increasing. I think we will take the liberty of scheduling a lumbar epidural steroid injection at the L5-S1 dermatomal distribution area to help ease some of [facility] [address] [facility] [place] [address] PAIN MANAGEMENT CONSULTATION Name: ROSI VALDES Room #: REG VICENTE JagdishAraceli.#: [id number] Admission: 10/19/20 Attend Phys: Maribeth HUE Hays Discharge: Date of : 66 Report #: [id number] his lumbar radiculopathy he is experiencing by Dr. Doss in 2 weeks. The patient is instructed to stop his heparin for his dialysis on a Saturday dialysis session prior to his injection. 2. We will continue him on his methadone 10 mg at bedtime #30 with one fill in 4 weeks as well as hydrocodone 10/325 #75 again in 2 months given of this medication as well as these meds were sent electronically by Dr. Doss. 3. The patient has complained of some significant itching when he is at work on the heat. He believes it is worse after dialysis days. He does have an appointment with Dr. Tijerina soon, I encouraged him to address this with him to see if there is a medicine he can take on an as needed basis when it is most severe. Time spent with the patient in consultation, reviewing recent studies and clinical notes and physician reports, physical examination and correlation of findings and medical documentation to determine possible treatment options 13 minutes. Time spent and preparation for appointment reviewing prescription monitoring reports, reviewing previous records and proposed treatment options and reviewing current medications 5 minutes. Time spent preparing and sending electronic prescriptions with collaborating physician, Dr. Ortiz Doss, documentation of visit and plan of treatment 5 minutes. Total time spent 23 minutes. HERO Connelly/BROCK <ELECTRONICALLY SIGNED> By: Maribeth Hays 10/20/20824 55 Maribeth Hays /nt
== END ==
LOC: PAIN 06:47
PROVIDERS: ATTEND Clinical Nurse Specialist Adult Health
DX: M54.17 Radiculopathy, lumbosacral region (principal); G89.29 Other chronic pain; I13.2 Hypertensive heart and chronic kidney disease with heart failure and with stage 5 chronic kidney disease, or end stage renal disease; I50.9 Heart failure, unspecified; N18.6 End stage renal disease; K59.03 Drug induced constipation; K31.89 Other diseases of stomach and duodenum; T40.2X5A Adverse effect of other opioids, initial encounter; Z99.2 Dependence on renal dialysis; Z79.891 Long term (current) use of opiate analgesic; Z79.899 Other long term (current) drug therapy; Y92.89 Other specified places as the place of occurrence of the external cause

== ENCOUNTER → 2020-11-02 | Outpatient (CLI) | payer BC ==
[~2020-11-02] VITALS: Ht 175.3 cm; Wt 135.2 kg
[2020-11-02 10:03] VITALS: BP 132/69
--- NOTE | 2020-11-02 10:17 | NUR ---
Pain Clinic Assessment: 1. History of Osteoarthritis: LEFT HAND History of Rheumatoid Arthritis: DENIES 2. Height: 5 ft. 9 in. 175.3 cm. Weight: 298.0 lb. oz. 135.172 kg. Patient's BMI: 44.0 3. Vital Signs: BP: 132/69 Pulse: 85 Resp: 16 Temp: 02 Sat: 99 ECG Mon: 4. Pain Intensity: 6 5. Fall Risk: Dizziness: N Needs help standing or walking: N Fallen in the last 3 months: N Fall risk comments: 6. Patient on Blood Thinner: Heparin 7. History of Hypertension: Y 8. Opioid Therapy greater than 6 weeks: Y Opiate Contract Signed: 10/20/15 9. Risk Assessment Tool Provided: 0/LOW 10. Functional Assessment Tool: 11. Recreational Drug Use: Never Drug Type: Tobacco Use: Former Smoker Tobacco Type: Amount or Packs/day: How Many Years: Alcohol Use: No Frequency: Quant:
== END ==
LOC: PAIN 08:56
PROVIDERS: ATTEND Anesthesiology Pain Medicine
DX: M51.17 Intervertebral disc disorders with radiculopathy, lumbosacral region (principal); M47.27 Other spondylosis with radiculopathy, lumbosacral region; M48.07 Spinal stenosis, lumbosacral region; G89.29 Other chronic pain; K59.00 Constipation, unspecified; I13.11 Hypertensive heart and chronic kidney disease without heart failure, with stage 5 chronic kidney disease, or end stage renal disease; E11.22 Type 2 diabetes mellitus with diabetic chronic kidney disease; N18.6 End stage renal disease; M19.042 Primary osteoarthritis, left hand; Z99.2 Dependence on renal dialysis; Z79.899 Other long term (current) drug therapy; Z79.891 Long term (current) use of opiate analgesic; Z87.891 Personal history of nicotine dependence; Z79.01 Long term (current) use of anticoagulants; Z88.8 Allergy status to other drugs, medicaments and biological substances

== ENCOUNTER → 2020-12-21 | Outpatient (CLI) | payer BC ==
[~2020-12-21] VITALS: Ht 175.3 cm; Wt 137.1 kg
[2020-12-21 08:02] VITALS: BP 152/100
--- NOTE | 2020-12-21 08:16 | NUR ---
Pain Clinic Assessment: 1. History of Osteoarthritis: LEFT HAND History of Rheumatoid Arthritis: DENIES 2. Height: 5 ft. 9 in. 175.3 cm. Weight: 302.2 lb. oz. 137.077 kg. Patient's BMI: 44.6 3. Vital Signs: BP: 152/100 Pulse: 93 Resp: 18 Temp: 02 Sat: 100 ECG Mon: 4. Pain Intensity: 4 5. Fall Risk: Dizziness: N Needs help standing or walking: N Fallen in the last 3 months: N Fall risk comments: 6. Patient on Blood Thinner: Heparin 7. History of Hypertension: Y 8. Opioid Therapy greater than 6 weeks: Y Opiate Contract Signed: 10/20/15 9. Risk Assessment Tool Provided: 0/LOW 10. Functional Assessment Tool: 11. Recreational Drug Use: Never Drug Type: Tobacco Use: Former Smoker Tobacco Type: Amount or Packs/day: How Many Years: Alcohol Use: No Frequency: Quant:
== END ==
LOC: PAIN 07:42
PROVIDERS: ATTEND Clinical Nurse Specialist Adult Health
DX: M54.16 Radiculopathy, lumbar region (principal); G89.29 Other chronic pain; I12.9 Hypertensive chronic kidney disease with stage 1 through stage 4 chronic kidney disease, or unspecified chronic kidney disease; N18.6 End stage renal disease; Z99.2 Dependence on renal dialysis; Z79.899 Other long term (current) drug therapy; Z79.891 Long term (current) use of opiate analgesic; Z87.891 Personal history of nicotine dependence

== ENCOUNTER → 2021-02-22 | Outpatient (CLI) | payer BC ==
[~2021-02-22] VITALS: Ht 175.3 cm; Wt 134.7 kg
[~2021-02-22] MED LIST changes: +NARCAN4 MG NARES
[2021-02-22 07:56] VITALS: BP 157/96
--- NOTE | 2021-02-22 08:06 | NUR ---
Pain Clinic Assessment: 1. History of Osteoarthritis: LEFT HAND History of Rheumatoid Arthritis: DENIES 2. Height: 5 ft. 9 in. 175.3 cm. Weight: 297.0 lb. oz. 134.719 kg. Patient's BMI: 43.8 3. Vital Signs: BP: 157/96 Pulse: 86 Resp: 20 Temp: 02 Sat: 98 ECG Mon: 4. Pain Intensity: 3-4 5. Fall Risk: Dizziness: N Needs help standing or walking: N Fallen in the last 3 months: N Fall risk comments: 6. Patient on Blood Thinner: Heparin 7. History of Hypertension: Y 8. Opioid Therapy greater than 6 weeks: Y Opiate Contract Signed: 10/20/15 9. Risk Assessment Tool Provided: 0/LOW 10. Functional Assessment Tool: 11. Recreational Drug Use: Never Drug Type: Tobacco Use: Former Smoker Tobacco Type: Amount or Packs/day: How Many Years: Alcohol Use: No Frequency: Quant:
== END ==
LOC: PAIN 06:54
PROVIDERS: ATTEND Clinical Nurse Specialist Adult Health
DX: G89.29 Other chronic pain (principal); M54.16 Radiculopathy, lumbar region; M54.17 Radiculopathy, lumbosacral region; N18.9 Chronic kidney disease, unspecified; Z99.2 Dependence on renal dialysis; Z87.891 Personal history of nicotine dependence; Z79.899 Other long term (current) drug therapy

== ENCOUNTER → 2021-04-19 | Outpatient (CLI) | payer BC ==
[~2021-04-19] VITALS: Ht 175.3 cm; Wt 136.5 kg
[2021-04-19 07:50] VITALS: BP 164/95
--- NOTE | 2021-04-19 07:54 | NUR ---
Pain Clinic Assessment: 1. History of Osteoarthritis: LEFT HAND History of Rheumatoid Arthritis: DENIES 2. Height: 5 ft. 9 in. 175.3 cm. Weight: 301.0 lb. oz. 136.533 kg. Patient's BMI: 44.4 3. Vital Signs: BP: 164/95 Pulse: 77 Resp: 14 Temp: 02 Sat: 99 ECG Mon: 4. Pain Intensity: 6-7 5. Fall Risk: Dizziness: N Needs help standing or walking: N Fallen in the last 3 months: N Fall risk comments: 6. Patient on Blood Thinner: Heparin 7. History of Hypertension: Y 8. Opioid Therapy greater than 6 weeks: Y Opiate Contract Signed: 10/20/15 9. Risk Assessment Tool Provided: 0/LOW 10. Functional Assessment Tool: 11. Recreational Drug Use: Never Drug Type: Tobacco Use: Former Smoker Tobacco Type: Amount or Packs/day: How Many Years: Alcohol Use: No Frequency: Quant:
== END ==
LOC: PAIN 06:50
PROVIDERS: ATTEND Clinical Nurse Specialist Adult Health
DX: M54.16 Radiculopathy, lumbar region (principal); M79.605 Pain in left leg; G89.29 Other chronic pain; N18.9 Chronic kidney disease, unspecified; F11.20 Opioid dependence, uncomplicated; Z99.2 Dependence on renal dialysis; Z87.891 Personal history of nicotine dependence; Z79.899 Other long term (current) drug therapy

== ENCOUNTER → 2021-06-14 | Outpatient (CLI) | payer BC ==
[~2021-06-14] VITALS: Ht 175.3 cm; Wt 134.1 kg
[2021-06-14 08:46] VITALS: BP 160/91
--- NOTE | 2021-06-14 08:51 | NUR ---
Pain Clinic Assessment: 1. History of Osteoarthritis: LEFT HAND History of Rheumatoid Arthritis: DENIES 2. Height: 5 ft. 9 in. 175.3 cm. Weight: 295.6 lb. oz. 134.084 kg. Patient's BMI: 43.6 3. Vital Signs: BP: 160/91 Pulse: 84 Resp: 16 Temp: 02 Sat: 97 ECG Mon: 4. Pain Intensity: 6 5. Fall Risk: Dizziness: N Needs help standing or walking: N Fallen in the last 3 months: N Fall risk comments: 6. Patient on Blood Thinner: Heparin 7. History of Hypertension: Y 8. Opioid Therapy greater than 6 weeks: Y Opiate Contract Signed: 10/20/15 9. Risk Assessment Tool Provided: 0/LOW 10. Functional Assessment Tool: 11. Recreational Drug Use: Never Drug Type: Tobacco Use: Former Smoker Tobacco Type: Amount or Packs/day: How Many Years: Alcohol Use: No Frequency: Quant:
== END ==
LOC: PAIN 06:59
PROVIDERS: ATTEND Anesthesiology Pain Medicine
DX: M54.17 Radiculopathy, lumbosacral region (principal); M54.50 Low back pain, unspecified; G89.29 Other chronic pain; Z99.2 Dependence on renal dialysis; K59.03 Drug induced constipation; Z79.899 Other long term (current) drug therapy